=== PATIENT | male | born 1985 | race Caucasian/White ===

== ENCOUNTER → 2016-05-31 | Outpatient (REF) | payer OTHER ==
[~2016-05-31] MED LIST: /ESCI20TA; ABIL10TA; BUSP10TA PO; LEXA1TAB2 PO; PROP1TAB29 PO; RISP2TAB30 PO; RISP4TAB33 PO; ZYPR5TAB
== END ==
LOC: M LABDRAWP 15:33
PROVIDERS: ATTEND Psychiatry & Neurology Psychiatry
DX: Z79.899 Other long term (current) drug therapy (principal)

== ENCOUNTER → 2016-07-31 | Outpatient (REF) | payer OTHER | LOC: M LABDRAW1 15:27 | PROVIDERS: ATTEND Psychiatry & Neurology Psychiatry | DX: Z79.899 Other long term (current) drug therapy (principal) ==

== ENCOUNTER → 2016-10-17 | Outpatient (REF) | payer OTHER ==
[~2016-10-17] MED LIST changes: -RISP2TAB30 PO; +RISP2TAB32 PO
[2016-10-17 13:49] LABS: ALBUMIN 4.1 GM/DL (3.2-5.2); ALBUMIN/GLOBULIN RATIO 1.14 (1.00-1.93); ALKALINE PHOSPHATASE 76 U/L (45-117); ALT/SGPT 37 U/L (12-78); ANION GAP 8 MEQ/L (8-16); AST/SGOT 17 U/L (15-37); BILIRUBIN,TOTAL 0.5 MG/DL (0.2-1.0); BLOOD UREA NITROGEN 12 MG/DL (7-18); CARBON DIOXIDE LEVEL 28 MEQ/L (21-32); CHLORIDE LEVEL 104 MEQ/L (98-107); CHOLESTEROL LEVEL 165 MG/DL (<200); CREATININE FOR GFR 1.11 MG/DL (0.70-1.30); GLOMERULAR FILTRATION RATE > 60.0 (>60); GLUCOSE, FASTING 83 MG/DL (70-105); POTASSIUM SERUM 4.1 MEQ/L (3.5-5.1); SODIUM LEVEL 140 MEQ/L (136-145); TOTAL PROTEIN 7.7 GM/DL (6.4-8.2); TRIGLYCERIDES LEVEL 130 MG/DL (<150)
[2016-10-17 14:12] LABS: MEAN CORPUSCULAR HEMOGLOBIN 31.1 pg (27.0-33.0); MEAN CORPUSCULAR HGB CONC 35.6 g/dl (32.0-36.5); MEAN CORPUSCULAR VOLUME 87.4 fl (80.0-96.0); RED CELL DISTRIBUTION WIDTH 12.5 % (11.5-14.5); WHITE BLOOD COUNT 3.8 K/mm3 (4.0-10.0)
[2016-10-17 14:35] LABS: PROLACTIN 6.6 NG/ML (2.1-17.7)
[2016-10-17 15:31] LABS: BASOPHILS 2 % (0-4); EOSINOPHILS 4 % (0-5)
== END ==
LOC: M SFHCPLAZ 10:43
PROVIDERS: ATTEND Family Medicine
DX: D72.819 Decreased white blood cell count, unspecified (principal); E78.5 Hyperlipidemia, unspecified; R73.01 Impaired fasting glucose; E22.1 Hyperprolactinemia; E29.1 Testicular hypofunction

== ENCOUNTER 2017-01-17 16:47 | Inpatient (IN) | payer OTHER ==
[~2017-01-17] VITALS: Ht 190.5 cm; Wt 122.0 kg
[2017-01-17 17:40] LABS: MEAN CORPUSCULAR HEMOGLOBIN 29.3 pg (27.0-33.0); MEAN CORPUSCULAR HGB CONC 34.2 g/dl (32.0-36.5); MEAN CORPUSCULAR VOLUME 85.6 fl (80.0-96.0); PLATELET COUNT, AUTOMATED 253 10^3/uL (150-450); RED CELL DISTRIBUTION WIDTH 12.9 % (11.5-14.5); WHITE BLOOD COUNT 6.6 10^3/uL (4.0-10.0)
[2017-01-17 18:08] LABS: ALBUMIN 3.9 GM/DL (3.2-5.2); ALBUMIN/GLOBULIN RATIO 0.98 (1.00-1.93); ALKALINE PHOSPHATASE 82 U/L (45-117); ALT/SGPT 32 U/L (12-78); ANION GAP 6 MEQ/L (8-16); AST/SGOT 16 U/L (7-37); BILIRUBIN,DIRECT 0.1 MG/DL (0.0-0.2); BILIRUBIN,TOTAL 0.5 MG/DL (0.2-1.0); BLOOD UREA NITROGEN 10 MG/DL (7-18); CALCIUM LEVEL 8.9 MG/DL (8.5-10.1); CARBON DIOXIDE LEVEL 29 MEQ/L (21-32); CHLORIDE LEVEL 104 MEQ/L (98-107); CREATININE FOR GFR 1.01 MG/DL (0.70-1.30); GLOMERULAR FILTRATION RATE > 60.0 (>60); GLUCOSE, FASTING 92 MG/DL (70-105); SODIUM LEVEL 139 MEQ/L (136-145); TOTAL PROTEIN 7.9 GM/DL (6.4-8.2)
[2017-01-17] MEDS: LURASIDONE 20 MG TAB (LATUDA) PO SCH (21:00)
[2017-01-17] MEDS: busPIRone 10 MG TAB PO SCH (21:00)
[2017-01-17] MEDS: ESCITALOPRAM OXALATE 10 MG TAB (LEXAPRO) PO SCH (21:00)
[2017-01-17] MEDS ORDERED: LEXA1TAB2 PO (21:17)
[2017-01-17] MEDS ORDERED: TRAZ50TA11 PO (21:17)
[2017-01-17] MEDS ORDERED: LORA0.5T11 PO (21:17)
[2017-01-17] MEDS ORDERED: BUSP10TA PO (21:17)
[2017-01-17] MEDS ORDERED: PROP40TA PO (21:17)
[2017-01-17] MEDS ORDERED: LATU1TAB PO (21:17)
[2017-01-17 22:23] LABS: METHADONE URINE NEGATIVE (NEGATIVE)
[2017-01-17] MEDS ORDERED: MAALOX 30 ML SUSP *UDC PO PRN (23:00)
[2017-01-17] MEDS ORDERED: MOM 30ML SUSPENSION UDC PO PRN (23:00)
[2017-01-17] MEDS ORDERED: LORazepam 0.5 MG TAB PO PRN (23:00)
[2017-01-18 00:46] VITALS: BP 132/80
[2017-01-18] MEDS: LURASIDONE 20 MG TAB (LATUDA) PO SCH ×2 (01:06→20:38)
[2017-01-18] MEDS: busPIRone 10 MG TAB PO SCH ×4 (01:06→21:00)
[2017-01-18] MEDS: traZODone 50 MG TAB PO PRN ×2 (01:07→21:46)
[2017-01-18] MEDS: ESCITALOPRAM OXALATE 10 MG TAB (LEXAPRO) PO SCH ×2 (01:07→21:00)
[2017-01-18] MEDS: PROPRANOLOL 20 MG TAB PO PRN ×2 (01:40→21:49)
[2017-01-18 07:28] VITALS: BP 120/72
--- NOTE | 2017-01-18 10:29 | MHHPEPDOC ---
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 This is a patient of Dr. Villalta, who put in a request for pickling solution maker letter. Patient brought in by [facility] , accompanied by father. Patient has been irritable, engaging in high risk activities, and slightly more energized. At home has been getting into arguments with his parents, has been going out alone and driving aggressively, which is a behavior he engages in when manic. Patient acknowledges that he is acting strangely, states that he has skipped a few doses of his latuda, unable to provide a clear reason why. Patient states that he is OK with going back on the medication. Denies difficulty sleeping, SI intent and plan, depression, AVH. States in the past he has had AH of whispers, but had not has AH in the last several months. Believes the AH is triggered by stress. Denies history of delusions, VH. Patient states the Latuda has adequately contained his manic symptoms, denies any side effects. He believes the no longer needs to be on the lexapro and requests to discontinue the medication. Patient is OK with continuing the propranolol 40 mg qhs (for anxiety), ativan 0.5 mg PRN (which he takes only a few times a week), buspar 10 mg TID. 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 MENTAL STATUS EXAMINATION: General appearance: well groomed Behavior: calm, cooperative, related Speech: normal RRVT Thought processes: linear Thought content: appropriate to conversation Judgment: fair Insight: fair Orientation: AAOX3 Mood: "OK" Affect: euthymic, full range DIAGNOSES: 1. bipolar d/o w/ psychotic features (r/o schizoaffective) ASSESSMENT: Patient is calm and reasonable on the unit, with good sleep last night. Given his description of his behaviors at home, it is likely that he is hypomanic, due to skipping several nights of latuda. Will not discontinue lexapro as patient requests, will compromise with his request by reducing the dose. PROBLEM LIST: 1. manic behaviors INITIAL TREATMENT PLAN: 1. Patient was admitted on a . 2. Complete history was obtained. 3. With patients permission, family will be contacted and database will be expanded. 4. Patients medication regimen will be reviewed and changed accordingly. 5. Patient will be provided with protected environment. 6. Patient will be treated with individual, group, and milieu therapies. 7. Patient will receive supportive psych-education. 8. Discharge planning will commence immediately. 9. Outpatient follow-up treatment will be strongly recommended. - Continue home latuda 60 mg with 40 mg now since pt did not take his last night 's dose. - Continue home buspar 10 mg TID, ativan 0.5 mg BID PRN, and propranolol 40 mg qhs - Reduced home lexapro to 20 mg daily for mood, patient can discuss with Dr. Villalta (outpt provider) if he wants to make further changes - PRNs: MOM, mylanta, tylenol, trazodone ESTIMATED LENGTH OF STAY: 4 DAYS. TIME SPENT COUNSELING AND COORDINATING INITIAL CARE: 20 minutes. Vital Signs Vital Signs Date Time Temp Pulse Resp B/P (MAP) Pulse Ox O2 Delivery O2 Flow Rate FiO2 01/18/17 07:28 98.0 79 16 120/72 (88) 01/18/17 00:15 97 Room Air Laboratory Data 24H Labs Laboratory Tests 2 01/17/17 17:27: Nucleated Red Blood Cells % (auto) 0.0, Anion Gap 6L, Glomerular Filtration Rate > 60.0, Calcium Level 8.9, Aspartate Amino Transf (AST/SGOT) 16, Alanine Aminotransferase (ALT/SGPT) 32, Alkaline Phosphatase 82, Total Bilirubin 0.5, Direct Bilirubin 0.1, Total Protein 7.9, Albumin 3.9, Albumin/Globulin Ratio 0.98L, Thyroid Stimulating Hormone (TSH) 3.600, Salicylates Level 1.9L, Acetaminophen Level < 2.0L, Ethyl Alcohol Level < 0.003 01/17/17 20:16: Urine Amphetamines Screen NEGATIVE, Urine Benzodiazepines Screen NEGATIVE, Urine Opiates Screen NEGATIVE, Urine Methadone Screen NEGATIVE, Urine Barbiturates Screen NEGATIVE, Urine Phencyclidine Screen NEGATIVE, Urine Cocaine Metabolite Screen NEGATIVE, Urine Cannabinoids Screen NEGATIVE CBC/BMP Laboratory Tests 01/17/17 17:27 Red Blood Count 5.29, Mean Corpuscular Volume 85.6, Mean Corpuscular Hemoglobin 29.3, Mean Corpuscular Hemoglobin Concent 34.2, Red Cell Distribution Width 12.9 Medications Scheduled Buspirone HCl (Buspirone HCl) 10 Mg Tab, 10 MG PO TID, (Reported) Escitalopram Oxalate (Lexapro) 20 Mg Tab, 40 MG PO QHS, (Reported) Lurasidone Hydrochloride (Latuda) 60 Mg Tab, 60 MG PO QHS, (Reported) Scheduled PRN Lorazepam (Lorazepam) 0.5 Mg Tab, 0.5 MG PO BID PRN for ANXIETY, (Reported) TOOK 1 MG LAST NIGHT, NOT A COMMON OCCURENCE PER PATIENT Propranolol HCl (Propranolol HCl) 40 Mg Tab, 40 MG PO QHS PRN for ANXIETY, ( Reported) Trazodone HCl (Trazodone HCl) 50 Mg Tab, 50 MG PO QHS PRN for SLEEP, (Reported) Allergies Coded Allergies: No Known Drug Allergy (Unverified Allergy, Unknown, 05/20/12) MARYANN DRAKE MD Jan 18, 2017 10:29
[2017-01-18] MEDS ORDERED: LURASIDONE HCL 40 MG TAB (LATUDA) PO ONE (10:30)
[2017-01-18 18:00] VITALS: BP 147/83
[2017-01-18 21:49] VITALS: BP 139/89
[2017-01-19 06:34] VITALS: BP 152/60
[2017-01-19] MEDS: busPIRone 10 MG TAB PO SCH ×3 (08:37→21:27)
[2017-01-19] MEDS ORDERED: LURASIDONE 20 MG TAB (LATUDA) PO ONE (09:30)
--- NOTE | 2017-01-19 10:38 | MHIPNPDOC ---
[facility] Progress Note Progress Note DATE OF SERVICE: 01/19/17 HISTORY: Patient states he wishes to go down on his latuda dose, states that he hopes his diagnosis is bipolar rather than schizoaffective. Patient was afraid of the side effects of antipsychotics. Discussed with the patient lamictal's usage and side effects. Patient refuses to take both lamictal and latuda at the same time, patient refuses monthly injectable antipsychotic. Patient states he will get a second opinion on his diagnosis once he is outside the hospital and was unable to definitely say that he will continue his latuda outpatient. Patient denies AVH and SI intent and plan on the unit, mood is OK. Patient's father was here last night, states that the patient is off of his baseline, the patient was irritable and odd. Spoke with Dr. Villalta his outpt provider: the patient has been floridly psychotic in the past, exhibiting symptoms such as thought blocking, disorganized speech, hearing AH of whispers. Dr. Villalta believes the diagnosis is schizoaffective. VITAL SIGNS: See below. NEW TEST RESULTS: NA CURRENT MEDICATIONS: See below. MENTAL STATUS EXAMINATION: General appearance: well groomed Behavior: calm, superficially cooperative but became guarded later, related but odd Speech: normal RRVT Thought processes: linear Thought content: appropriate to conversation Judgment: poor Insight: poor Orientation: AAOX3 Mood: "OK" Affect: euthymic, full range DIAGNOSES: 1. bipolar d/o w/ psychotic features vs schizoaffective ASSESSMENT: Patient is calm and appears to be related and reasonable, but upon further discussion his oddness and irrational judgment become manifest. Given his father's statements, the patient needs to be further evaluated and treated to reach his baseline. Patient needs to be accepting of his diagnosis in order to increase outpatient medication compliance. PROBLEM LIST: 1. manic/psychotic behaviors - Continue home latuda 60 mg qhs for mood and psychosis - Continue home buspar 10 mg TID, ativan 0.5 mg BID PRN, and propranolol 40 mg qhs - Reduced home lexapro to 20 mg daily for mood - PRNs: MOM, mylanta, tylenol, trazodone ESTIMATED LENGTH OF STAY: 5 DAYS. TIME SPENT COUNSELING AND COORDINATING INITIAL CARE: 20 minutes. Vital Signs Vital Signs Date Time Temp Pulse Resp B/P (MAP) Pulse Ox O2 Delivery O2 Flow Rate FiO2 01/19/17 06:34 98.0 63 18 152/60 (90) 01/18/17 00:15 97 Room Air Current Medications Current Medications Acetaminophen (Tylenol Tab) 650 mg Q6HP PRN PO HEADACHE or DISCOMFORT; Start 01/17/17 at 23:00; Stop 02/16/17 at 22:59 Al Hydrox/Mg Hydrox/Simethicone (Mylanta) 30 ml Q4HP PRN PO HEARTBURN/ INDIGESTION; Start 01/17/17 at 23:00; Stop 02/16/17 at 22:59 Buspirone HCl (Buspar) 10 mg TID PO Last administered on 01/19/17 08:37; Start 01/17/17 at 21:00; Stop 02/16/17 at 20:59 Escitalopram Oxalate (Lexapro) 20 mg QHS PO ; Start 01/18/17 at 21:00; Stop 02/17 at 20:59 Escitalopram Oxalate (Lexapro) 40 mg QHS PO ; Start 01/17/17 at 21:00; Stop 01/18/17 at 10:14; Status DC Home Med (Med Rec Complete!) ASDIRECTED XX ; Start 01/17/17 at 21:30; Stop 01/17/17 at 21:30; Status DC Lorazepam (Ativan) 0.5 mg BID PRN PO ANXIETY; Start 01/17/17 at 23:00; Stop at 22:59 Lurasidone HCl (Latuda) 60 mg QHS PO ; Start 01/17/17 at 21:00; Stop 01/19/17 at 09:34; Status DC Lurasidone HCl (Latuda) 60 mg QHS PO ; Start 01/20/17 at 21:00; Stop 02/19/17 at 20:59 Magnesium Hydroxide (Milk Of Magnesia) 30 ml DAILYPRN PRN PO CONSTIPATION; Start 01/17/17 at 23:00; Stop 02/16/17 at 22:59 Propranolol HCl (Inderal) 40 mg QHS PRN PO ANXIETY Last administered on 21:49; Start 01/17/17 at 23:00; Stop 02/16/17 at 22:59 Trazodone HCl (Desyrel) 50 mg QHSP PRN PO INSOMNIA Last administered on t 21:46; Start 01/17/17 at 23:00; Stop 02/16/17 at 22:59 Allergies Coded Allergies: No Known Drug Allergy (Unverified Allergy, Unknown, 05/20/12) MARYANN DRAKE MD Jan 19, 2017 10:38
[2017-01-19 13:45] VITALS: BP 122/78
[2017-01-19 18:00] VITALS: BP 163/76
[2017-01-19] MEDS ORDERED: LURASIDONE HCL 40 MG TAB (LATUDA) PO ONE (21:00)
[2017-01-19] MEDS: lamoTRIgine 25 MG TAB PO SCH (21:26)
[2017-01-19] MEDS: ESCITALOPRAM OXALATE 10 MG TAB (LEXAPRO) PO SCH (21:27)
[2017-01-20 06:36] VITALS: BP 125/67
[2017-01-20] MEDS: busPIRone 10 MG TAB PO SCH ×3 (08:14→21:00)
--- NOTE | 2017-01-20 09:46 | MHIPNPDOC ---
[facility] Progress Note Progress Note DATE OF SERVICE: 01/20/17 HISTORY: Patient has been compliant with medications but he states that he does not wish to take so many. He asks which ones he has to take, and states he wishes to stop the lexapro. After some counseling about withdrawal effects, patient agreed to continue the lexapro. Patient denies side effects. Patient states that he does not know if he has insurance and states that he will not take the latuda because it is expensive. Patient did not endorse depression, SI intent and plan. Reports good sleep. VITAL SIGNS: See below. NEW TEST RESULTS: NA CURRENT MEDICATIONS: See below. MENTAL STATUS EXAMINATION: General appearance: well groomed Behavior: calm, superficially cooperative, guarded, related but odd, impatient Speech: normal RRVT but sunita Thought processes: linear Thought content: appropriate to conversation Judgment: poor Insight: poor Orientation: AAOX3 Mood: "OK" Affect: euthymic, full range DIAGNOSES: 1. bipolar d/o w/ psychotic features vs schizoaffective ASSESSMENT: Patient is resistant to acknowledging his diagnosis and seems to be unmotivated to continue his medications, but still takes them because he has to while inpatient. Patient seems to be coming up with reasons on why he should not take Latuda, rather than coming up with reasons why he should or could (eg. get on a new insurance plan after discharge). Will continue to treat annia, and see if patient is more reasonable after several days. PROBLEM LIST: 1. manic/psychotic behaviors - Continue home latuda 60 mg qhs for mood and psychosis - Continue home buspar 10 mg TID, ativan 0.5 mg BID PRN, and propranolol 40 mg qhs - Reduced home lexapro to 20 mg daily for mood - PRNs: MOM, mylanta, tylenol, trazodone ESTIMATED LENGTH OF STAY: 5 DAYS. TIME SPENT COUNSELING AND COORDINATING INITIAL CARE: 20 minutes. Vital Signs Vital Signs Date Time Temp Pulse Resp B/P (MAP) Pulse Ox O2 Delivery O2 Flow Rate FiO2 01/20/17 06:36 97.7 75 16 125/67 (86) 01/18/17 00:15 97 Room Air Current Medications Current Medications Acetaminophen (Tylenol Tab) 650 mg Q6HP PRN PO HEADACHE or DISCOMFORT; Start 01/17/17 at 23:00; Stop 02/16/17 at 22:59 Al Hydrox/Mg Hydrox/Simethicone (Mylanta) 30 ml Q4HP PRN PO HEARTBURN/ INDIGESTION; Start 01/17/17 at 23:00; Stop 02/16/17 at 22:59 Buspirone HCl (Buspar) 10 mg TID PO Last administered on 01/20/17 08:14; Start 01/17/17 at 21:00; Stop 02/16/17 at 20:59 Escitalopram Oxalate (Lexapro) 20 mg QHS PO Last administered on 01/19/17 21: 27; Start 01/18/17 at 21:00; Stop 02/17/17 at 20:59 Escitalopram Oxalate (Lexapro) 40 mg QHS PO ; Start 01/17/17 at 21:00; Stop 01/18/17 at 10:14; Status DC Home Med (Med Rec Complete!) ASDIRECTED XX ; Start 01/17/17 at 21:30; Stop 01/17/17 at 21:30; Status DC Lamotrigine (LaMICtal) 25 mg QHS PO Last administered on 01/19/17 21:26; Start 01/19/17 at 21:00; Stop 02/18/17 at 20:59 Lorazepam (Ativan) 0.5 mg BID PRN PO ANXIETY; Start 01/17/17 at 23:00; Stop at 22:59 Lurasidone HCl (Latuda) 60 mg QHS PO ; Start 01/17/17 at 21:00; Stop 01/19/17 at 09:34; Status DC Lurasidone HCl (Latuda) 60 mg QHS PO ; Start 01/20/17 at 21:00; Stop 02/19/17 at 20:59 Magnesium Hydroxide (Milk Of Magnesia) 30 ml DAILYPRN PRN PO CONSTIPATION; Start 01/17/17 at 23:00; Stop 02/16/17 at 22:59 Propranolol HCl (Inderal) 40 mg QHS PRN PO ANXIETY Last administered on 21:49; Start 01/17/17 at 23:00; Stop 02/16/17 at 22:59 Trazodone HCl (Desyrel) 50 mg QHSP PRN PO INSOMNIA Last administered on 21:46; Start 01/17/17 at 23:00; Stop 02/16/17 at 22:59 Allergies Coded Allergies: No Known Drug Allergy (Unverified Allergy, Unknown, 05/20/12) MARYANN DRAKE MD Jan 20, 2017 09:46
[2017-01-20 18:00] VITALS: BP 155/92
[2017-01-20] MEDS: lamoTRIgine 25 MG TAB PO SCH (21:00)
[2017-01-20] MEDS: ESCITALOPRAM OXALATE 10 MG TAB (LEXAPRO) PO SCH (21:00)
[2017-01-20] MEDS: LURASIDONE 20 MG TAB (LATUDA) PO SCH (21:00)
[2017-01-21 06:44] VITALS: BP 120/80
[2017-01-21] MEDS: busPIRone 10 MG TAB PO SCH ×3 (08:05→21:00)
--- NOTE | 2017-01-21 10:27 | MHIPNPDOC ---
[facility] Progress Note Progress Note DATE OF SERVICE: 01/21/17 HISTORY: Patient refused his meds last night, gave ambiguous reasons about why he refused. Patient was counseled on compliance. Patient agreed to be more cooperative. VITAL SIGNS: See below. NEW TEST RESULTS: NA CURRENT MEDICATIONS: See below. MENTAL STATUS EXAMINATION: Behavior: guarded, superficially cooperative, good eye contact Speech: normal RRVT Thought processes including: linear Thought content: appropriate to conversation Judgment: poor Insight: poor Orientation: AAOX3 Mood: "exhausted" Affect: anxious DIAGNOSES: 1. bipolar d/o w/ psychotic features vs schizoaffective ASSESSMENT: Patient is resistant to acknowledging his diagnosis and seems to be unmotivated to continue his medications. Patient seems to be coming up with reasons on why he should not take the medications. Patient very particular about his diagnosis. Will continue to treat annia, and see if patient is more reasonable after several days. PROBLEM LIST: 1. manic/psychotic behaviors - Continue home latuda 60 mg qhs for mood and psychosis - Continue lamictal 25 mg daily for mood stabilization - Continue home buspar 10 mg TID, ativan 0.5 mg BID PRN, and propranolol 40 mg qhs - Reduced home lexapro to 20 mg daily for mood - PRNs: MOM, mylanta, tylenol, trazodone ESTIMATED LENGTH OF STAY: 5 DAYS. TIME SPENT COUNSELING AND COORDINATING INITIAL CARE: 20 minutes. Vital Signs Vital Signs Date Time Temp Pulse Resp B/P (MAP) Pulse Ox O2 Delivery O2 Flow Rate FiO2 01/21/17 06:44 97.5 84 14 120/80 (93) 01/18/17 00:15 97 Room Air Current Medications Current Medications Acetaminophen (Tylenol Tab) 650 mg Q6HP PRN PO HEADACHE or DISCOMFORT; Start 01/17/17 at 23:00; Stop 02/16/17 at 22:59 Al Hydrox/Mg Hydrox/Simethicone (Mylanta) 30 ml Q4HP PRN PO HEARTBURN/ INDIGESTION; Start 01/17/17 at 23:00; Stop 02/16/17 at 22:59 Buspirone HCl (Buspar) 10 mg TID PO Last administered on 01/21/17t 08:05; Start 01/17/17 at 21:00; Stop 02/16/17 at 20:59 Escitalopram Oxalate (Lexapro) 20 mg QHS PO Last administered on 01/19/17 21: 27; Start 01/18/17 at 21:00; Stop 02/17/17 at 20:59 Escitalopram Oxalate (Lexapro) 40 mg QHS PO ; Start 01/17/17 at 21:00; Stop 01/18/17 at 10:14; Status DC Home Med (Med Rec Complete!) ASDIRECTED XX ; Start 01/17/17 at 21:30; Stop 01/17/17 at 21:30; Status DC Lamotrigine (LaMICtal) 25 mg QHS PO Last administered on 01/19/17 21:26; Start 01/19/17 at 21:00; Stop 02/18/17 at 20:59 Lorazepam (Ativan) 0.5 mg BID PRN PO ANXIETY; Start 01/17/17 at 23:00; Stop at 22:59 Lurasidone HCl (Latuda) 60 mg QHS PO ; Start 01/17/17 at 21:00; Stop 01/19/17 at 09:34; Status DC Lurasidone HCl (Latuda) 60 mg QHS PO ; Start 01/20/17 at 21:00; Stop 02/19/17 at 20:59 Magnesium Hydroxide (Milk Of Magnesia) 30 ml DAILYPRN PRN PO CONSTIPATION; Start 01/17/17 at 23:00; Stop 02/16/17 at 22:59 Propranolol HCl (Inderal) 40 mg QHS PRN PO ANXIETY Last administered on 21:49; Start 01/17/17 at 23:00; Stop 02/16/17 at 22:59 Trazodone HCl (Desyrel) 50 mg QHSP PRN PO INSOMNIA Last administered on 21:46; Start 01/17/17 at 23:00; Stop 02/16/17 at 22:59 Allergies Coded Allergies: No Known Drug Allergy (Unverified Allergy, Unknown, 05/20/12) MARYANN DRAKE MD Jan 21, 2017 10:27
--- NOTE | 2017-01-21 11:24 | HPE ---
DATE OF ADMISSION: 01/17/2017 Please refer to psychiatric history and evaluation for further details on this admission. This examination and history is intended for medical issues, which may need treatment, followup, or consult on this 31-year-old male. PRIMARY CARE PROVIDER: Vick Clarke MD ALLERGIES: No known drug allergies. SOCIAL HISTORY: He lives in [place], and he is single. He takes 2-3 beers per day. He does not use recreational drugs. FAMILY HISTORY: Mother alive, age 64, Crohn disease and depression. Father alive, age 64. Two brothers alive with inflammatory bowel disease (IBD). PAST MEDICAL HISTORY: Schizoaffective disorder, tremor, seasonal allergies. PAST SURGICAL HISTORY: Right breast mass removed. HOME MEDICATIONS: - trazodone 50 mg by mouth nightly as needed for sleep - BuSpar 10 mg by mouth three times a day - Lexapro 40 mg by mouth nightly - lorazepam 0.5 mg by mouth twice a day as needed for anxiety - Latuda 60 mg by mouth nightly - propranolol 40 mg by mouth nightly as needed for anxiety Ten systems review was done and was unremarkable. PHYSICAL EXAMINATION: A 31-year-old cooperative male, in no acute distress. Height 75 inches, weight 116 kg, body mass index (BMI) is 32. The patient is alert and oriented times three. Pupils are equal and react to light. Extraocular movements intact. Cornea and sclerae clear. Conjunctivae normal. No facial asymmetry. Pharynx, tongue, gums pink and moist. Tongue is midline. NECK: Is supple without lymphadenopathy. No thyromegaly. No goiter. Carotids 2+ without bruit. CHEST: Clear to auscultation without wheeze or retraction. HEART: Is regular. ABDOMEN: Benign. Bowel sounds positive. GENITOURINARY ()/RECTAL: Not done. EXTREMITIES: Show equal strength, full range of motion. No cyanosis, clubbing, or edema. Peripheral pulses equal and palpable bilaterally. SKIN: Is warm and dry. IMPRESSION AND PLAN: 1. Psychiatric plan per psychiatry. 2. No acute medical issues.
[2017-01-21 18:00] VITALS: BP 136/92
[2017-01-21] MEDS: LURASIDONE 20 MG TAB (LATUDA) PO SCH (21:00)
[2017-01-21] MEDS: lamoTRIgine 25 MG TAB PO SCH (21:00)
[2017-01-21] MEDS: ESCITALOPRAM OXALATE 10 MG TAB (LEXAPRO) PO SCH (21:00)
[2017-01-22 06:00] VITALS: BP 140/80
[2017-01-22] MEDS: busPIRone 10 MG TAB PO SCH ×4 (10:12→21:00)
--- NOTE | 2017-01-22 12:37 | MHIPNPDOC ---
[facility] Progress Note Progress Note DATE OF SERVICE: 01/22/17 HISTORY: Pt refused medications again. Patient does not give clear reason why he is doing so. Patient keeps expressing that he does not wish to see Dr. Villalta as an outpatient provider despite this provider's suggestions. Patient adamantly wishes to say that he has bipolar type I rather than schizoaffective. VITAL SIGNS: See below. NEW TEST RESULTS: NA CURRENT MEDICATIONS: See below. MENTAL STATUS EXAMINATION: Behavior:guarded, evasive Speech: normal RRVT Thought processes including: linear Thought content: appropriate to conversation Judgment: poor Insight: fair Orientation: AAOx3 Mood: OK Affect: anxious DIAGNOSES: 1. bipolar disorder w psychotic features vs schizoaffective ASSESSMENT: Patient likely is being manipulative, not taking his medications on purpose, trying to use leverage to get this provider to diagnose him with bipolar rather than schizoaffective, and trying to be set up with a different outpatient provider besides Dr. Villalta. Explained to this patient that it is unclear whether he has bipolar or schizoaffective based on his inpatient presentation, but he should be more concerned about getting better rather than the official dx. Plan: - Continue home latuda 60 mg qhs for mood and psychosis - Continue lamictal 25 mg daily for mood stabilization - Continue home buspar 10 mg TID, ativan 0.5 mg BID PRN, and propranolol 40 mg qhs - Reduced home lexapro to 20 mg daily for mood - PRNs: MOM, mylanta, tylenol, trazodone ESTIMATED LENGTH OF STAY: 5 DAYS. TIME SPENT COUNSELING AND COORDINATING INITIAL CARE: 20 minutes. Vital Signs Vital Signs Date Time Temp Pulse Resp B/P (MAP) Pulse Ox O2 Delivery O2 Flow Rate FiO2 01/22/17 06:00 97.1 82 14 140/80 (100) 01/18/17 00:15 97 Room Air Current Medications Current Medications Acetaminophen (Tylenol Tab) 650 mg Q6HP PRN PO HEADACHE or DISCOMFORT; Start 01/17/17 at 23:00; Stop 02/16/17 at 22:59 Al Hydrox/Mg Hydrox/Simethicone (Mylanta) 30 ml Q4HP PRN PO HEARTBURN/ INDIGESTION; Start 01/17/17 at 23:00; Stop 02/16/17 at 22:59 Buspirone HCl (Buspar) 10 mg TID PO Last administered on 01/21/17 08:05; Start 01/17/17 at 21:00; Stop 02/16/17 at 20:59 Escitalopram Oxalate (Lexapro) 20 mg QHS PO Last administered on 01/19/17 21: 27; Start 01/18/17 at 21:00; Stop 02/17/17 at 20:59 Escitalopram Oxalate (Lexapro) 40 mg QHS PO ; Start 01/17/17 at 21:00; Stop 01/18/17 at 10:14; Status DC Home Med (Med Rec Complete!) ASDIRECTED XX ; Start 01/17/17 at 21:30; Stop 01/17/17 at 21:30; Status DC Lamotrigine (LaMICtal) 25 mg QHS PO Last administered on 01/19/17 21:26; Start 01/19/17 at 21:00; Stop 02/18/17 at 20:59 Lorazepam (Ativan) 0.5 mg BID PRN PO ANXIETY; Start 01/17/17 at 23:00; Stop at 22:59 Lurasidone HCl (Latuda) 60 mg QHS PO ; Start 01/17/17 at 21:00; Stop 01/19/17 at 09:34; Status DC Lurasidone HCl (Latuda) 60 mg QHS PO ; Start 01/20/17 at 21:00; Stop 02/19/17 at 20:59 Magnesium Hydroxide (Milk Of Magnesia) 30 ml DAILYPRN PRN PO CONSTIPATION; Start 01/17/17 at 23:00; Stop 02/16/17 at 22:59 Propranolol HCl (Inderal) 40 mg QHS PRN PO ANXIETY Last administered on 21:49; Start 01/17/17 at 23:00; Stop 02/16/17 at 22:59 Trazodone HCl (Desyrel) 50 mg QHSP PRN PO INSOMNIA Last administered on 21:46; Start 01/17/17 at 23:00; Stop 02/16/17 at 22:59 Allergies Coded Allergies: No Known Drug Allergy (Unverified Allergy, Unknown, 05/20/12) MARYANN DRAKE MD Jan 22, 2017 12:37
[2017-01-22 18:00] VITALS: BP 130/71
[2017-01-22] MEDS: LURASIDONE 20 MG TAB (LATUDA) PO SCH (20:06)
[2017-01-22] MEDS: lamoTRIgine 25 MG TAB PO SCH (20:06)
[2017-01-22] MEDS: ESCITALOPRAM OXALATE 10 MG TAB (LEXAPRO) PO SCH (21:00)
[2017-01-22] MEDS: traZODone 50 MG TAB PO PRN (22:32)
[2017-01-23 06:55] VITALS: BP 135/74
[2017-01-23] MEDS: busPIRone 10 MG TAB PO SCH (09:00)
--- NOTE | 2017-01-23 10:18 | MHIPNPDOC ---
[facility] Progress Note Progress Note DATE OF SERVICE: 01/23/17 HISTORY: Patient took the latuda and lamictal last night. Patient refused all of the other medications. Patient reports good sleep, OK mood, denies SI intent and plan. Staff states that the pt is suinta with them, dismissive. VITAL SIGNS: See below. NEW TEST RESULTS: NA CURRENT MEDICATIONS: See below. MENTAL STATUS EXAMINATION: Behavior:guarded Speech: normal RRVT Thought processes including: linear Thought content: appropriate to conversation Judgment: poor Insight: fair Orientation: AAOx3 Mood: OK Affect: anxious DIAGNOSES: 1. bipolar disorder w psychotic features vs schizoaffective ASSESSMENT: Patient likely is being manipulative, not taking his medications on purpose, trying to use leverage to get this provider to diagnose him with bipolar rather than schizoaffective, and trying to be set up with a different outpatient provider besides Dr. Villalta. Explained to this patient that it is unclear whether he has bipolar or schizoaffective based on his inpatient presentation, but he should be more concerned about getting better rather than the official dx. Plan: - Continue home latuda 60 mg qhs for mood and psychosis - Continue lamictal 25 mg daily for mood stabilization - Discontinue home buspar 10 mg TID, ativan 0.5 mg BID PRN, and propranolol 40 mg qhs, lexapro - PRNs: MOM, mylanta, tylenol, trazodone ESTIMATED LENGTH OF STAY: 5 DAYS. TIME SPENT COUNSELING AND COORDINATING INITIAL CARE: 20 minutes. Vital Signs Vital Signs Date Time Temp Pulse Resp B/P (MAP) Pulse Ox O2 Delivery O2 Flow Rate FiO2 01/23/17 06:55 98.0 99 18 135/74 (94) Room Air 01/18/17 00:15 97 Current Medications Current Medications Acetaminophen (Tylenol Tab) 650 mg Q6HP PRN PO HEADACHE or DISCOMFORT; Start 01/17/17 at 23:00; Stop 02/16/17 at 22:59 Al Hydrox/Mg Hydrox/Simethicone (Mylanta) 30 ml Q4HP PRN PO HEARTBURN/ INDIGESTION; Start 01/17/17 at 23:00; Stop 02/16/17 at 22:59 Buspirone HCl (Buspar) 10 mg TID PO Last administered on 01/22/17t 16:03; Start 01/17/17 at 21:00; Stop 02/16/17 at 20:59 Escitalopram Oxalate (Lexapro) 20 mg QHS PO Last administered on 01/19/17 21: 27; Start 01/18/17 at 21:00; Stop 02/17/17 at 20:59 Escitalopram Oxalate (Lexapro) 40 mg QHS PO ; Start 01/17/17 at 21:00; Stop 01/18/17 at 10:14; Status DC Home Med (Med Rec Complete!) ASDIRECTED XX ; Start 01/17/17 at 21:30; Stop 01/17/17 at 21:30; Status DC Lamotrigine (LaMICtal) 25 mg QHS PO Last administered on 01/22/17 20:06; Start 01/19/17 at 21:00; Stop 02/18/17 at 20:59 Lorazepam (Ativan) 0.5 mg BID PRN PO ANXIETY; Start 01/17/17 at 23:00; Stop at 22:59 Lurasidone HCl (Latuda) 60 mg QHS PO ; Start 01/17/17 at 21:00; Stop 01/19/17 at 09:34; Status DC Lurasidone HCl (Latuda) 60 mg QHS PO Last administered on 01/22/17 20:06; Start 01/20/17 at 21:00; Stop 02/19/17 at 20:59 Magnesium Hydroxide (Milk Of Magnesia) 30 ml DAILYPRN PRN PO CONSTIPATION; Start 01/17/17 at 23:00; Stop 02/16/17 at 22:59 Propranolol HCl (Inderal) 40 mg QHS PRN PO ANXIETY Last administered on 21:49; Start 01/17/17 at 23:00; Stop 02/16/17 at 22:59 Trazodone HCl (Desyrel) 50 mg QHSP PRN PO INSOMNIA Last administered on 22:32; Start 01/17/17 at 23:00; Stop 02/16/17 at 22:59 Allergies Coded Allergies: No Known Drug Allergy (Unverified Allergy, Unknown, 05/20/12) MARYANN DRAKE MD Jan 23, 2017 10:18
[2017-01-23 18:05] VITALS: BP 153/89
[2017-01-23] MEDS: LURASIDONE 20 MG TAB (LATUDA) PO SCH (20:20)
[2017-01-23] MEDS: lamoTRIgine 25 MG TAB PO SCH (20:20)
[2017-01-23] MEDS: ACETAMINOPHEN TAB 650MG DOSE (2X325MG) PO PRN (20:20)
[2017-01-23] MEDS: traZODone 50 MG TAB PO PRN (22:07)
[2017-01-24 06:35] VITALS: BP 138/87
--- NOTE | 2017-01-24 09:54 | MHIPNPDOC ---
[facility] Progress Note Progress Note DATE OF SERVICE: 01/24/17 HISTORY: Patient took the latuda and lamictal last night. Patient states his sleep was good. Patient has been behaving more oddly, pacing around unit with earplugs. Today told this provider that he is being given uranium here which is making him sick. Patient still says he does not wish to see Dr. Villalta when he leaves the hospital. Did not endorse SI intent or plan. VITAL SIGNS: See below. NEW TEST RESULTS: NA CURRENT MEDICATIONS: See below. MENTAL STATUS EXAMINATION: Behavior:guarded Speech: normal RRVT Thought processes including: linear Thought content: appropriate to conversation Judgment: poor Insight: fair Orientation: AAOx3 Mood: OK Affect: anxious DIAGNOSES: 1. bipolar disorder w psychotic features vs schizoaffective ASSESSMENT: Patient seems to be exhibiting some hypomanic and/or psychotic thoughts. Patient is still preoccupied with leaving the hospital and on not being labeled with schizoaffective. Plan: - Continue home latuda 60 mg qhs for mood and psychosis - Continue lamictal 25 mg daily for mood stabilization - Discontinue home buspar 10 mg TID, ativan 0.5 mg BID PRN, and propranolol 40 mg qhs, lexapro - PRNs: MOM, mylanta, tylenol, trazodone ESTIMATED LENGTH OF STAY: 7+ DAYS. TIME SPENT COUNSELING AND COORDINATING INITIAL CARE: 20 minutes. Vital Signs Vital Signs Date Time Temp Pulse Resp B/P (MAP) Pulse Ox O2 Delivery O2 Flow Rate FiO2 01/24/17 06:35 98.9 94 18 138/87 (104) Room Air 01/18/17 00:15 97 Current Medications Current Medications Acetaminophen (Tylenol Tab) 650 mg Q6HP PRN PO HEADACHE or DISCOMFORT Last administered on 01/23/17 20:20; Start 01/17/17 at 23:00; Stop 02/16/17 at 22:59 Al Hydrox/Mg Hydrox/Simethicone (Mylanta) 30 ml Q4HP PRN PO HEARTBURN/ INDIGESTION; Start 01/17/17 at 23:00; Stop 02/16/17 at 22:59 Buspirone HCl (Buspar) 10 mg TID PO Last administered on 01/22/17 16:03; Start 01/17/17 at 21:00; Stop 01/23/17 at 10:19; Status DC Escitalopram Oxalate (Lexapro) 20 mg QHS PO Last administered on 01/19/17 21: 27; Start 01/18/17 at 21:00; Stop 01/23/17 at 10:19; Status DC Escitalopram Oxalate (Lexapro) 40 mg QHS PO ; Start 01/17/17 at 21:00; Stop 01/18/17 at 10:14; Status DC Home Med (Med Rec Complete!) ASDIRECTED XX ; Start 01/17/17 at 21:30; Stop 01/17/17 at 21:30; Status DC Lamotrigine (LaMICtal) 25 mg QHS PO Last administered on 01/23/17 20:20; Start 01/19/17 at 21:00; Stop 02/18/17 at 20:59 Lorazepam (Ativan) 0.5 mg BID PRN PO ANXIETY; Start 01/17/17 at 23:00; Stop at 10:19; Status DC Lurasidone HCl (Latuda) 60 mg QHS PO ; Start 01/17/17 at 21:00; Stop 01/19/17 at 09:34; Status DC Lurasidone HCl (Latuda) 60 mg QHS PO Last administered on 01/23/17 20:20; Start 01/20/17 at 21:00; Stop 02/19/17 at 20:59 Magnesium Hydroxide (Milk Of Magnesia) 30 ml DAILYPRN PRN PO CONSTIPATION; Start 01/17/17 at 23:00; Stop 02/16/17 at 22:59 Propranolol HCl (Inderal) 40 mg QHS PRN PO ANXIETY Last administered on 21:49; Start 01/17/17 at 23:00; Stop 01/23/17 at 10:19; Status DC Trazodone HCl (Desyrel) 50 mg QHSP PRN PO INSOMNIA Last administered on 22:07; Start 01/17/17 at 23:00; Stop 02/16/17 at 22:59 Allergies Coded Allergies: No Known Drug Allergy (Unverified Allergy, Unknown, 05/20/12) MARYANN DRAKE MD Jan 24, 2017 09:54
[2017-01-24] MEDS: ACETAMINOPHEN TAB 650MG DOSE (2X325MG) PO PRN ×2 (10:27→17:51)
[2017-01-24 18:00] VITALS: BP 147/91
[2017-01-24] MEDS: lamoTRIgine 25 MG TAB PO SCH (20:26)
[2017-01-24] MEDS: PALIPERIDONE 6 MG ER TAB (INVEGA) PO SCH (20:59)
[2017-01-25 06:53] VITALS: BP 161/93
--- NOTE | 2017-01-25 10:30 | MHIPNPDOC ---
[facility] Progress Note Progress Note DATE OF SERVICE: 01/25/17 HISTORY: Patient has been acting more bizarre, paranoid. Yesterday afternoon patient stated that the staff was giving him uranium. Patient become preoccupied about needing IV saline because he thinks he is dehydrated, despite having oral water available. When asked what thoughts are going through his mind , he stated "you don't want to know." Patient endorses wishing to take his medications, and patient agreed to invega injection. Patient still distrustful, wishes to ask his father about everything. Did not endorse SI intent and plan. VITAL SIGNS: See below. NEW TEST RESULTS: NA CURRENT MEDICATIONS: See below. MENTAL STATUS EXAMINATION: Behavior:guarded, odd Speech: anxious tone Thought processes including: illogical Thought content: preoccupied with details, asking same question over and over again, some paranoia Judgment: poor Insight: poor Orientation: AAOx3 Mood: anxious Affect: anxious DIAGNOSES: 1. bipolar disorder w psychotic features vs schizoaffective ASSESSMENT: Patient has decompensated and his psychotic symptoms are more manifest. Patient states he is willing to take his medications but has paranoid thoughts that make him refuse when the medications are actually offered. Plan: - Patient missed his last night's paliperidone, will give 6 mg dose now - Invega sustenna tmrw, assuming he tolerates the oral med. - Continue lamictal 25 mg daily for mood stabilization - Discontinue home buspar 10 mg TID, ativan 0.5 mg BID PRN, and propranolol 40 mg qhs, lexapro - PRNs: MOM, mylanta, tylenol, trazodone ESTIMATED LENGTH OF STAY: 7+ DAYS. TIME SPENT COUNSELING AND COORDINATING INITIAL CARE: 20 minutes. Vital Signs Vital Signs Date Time Temp Pulse Resp B/P (MAP) Pulse Ox O2 Delivery O2 Flow Rate FiO2 01/25/17 06:53 120 20 161/93 (115) 01/24/17 18:00 97.1 01/24/17 06:35 Room Air Current Medications Current Medications Acetaminophen (Tylenol Tab) 650 mg Q6HP PRN PO HEADACHE or DISCOMFORT Last administered on 01/24/17t 17:51; Start 01/17/17 at 23:00; Stop 02/16/17 at 22:59 Al Hydrox/Mg Hydrox/Simethicone (Mylanta) 30 ml Q4HP PRN PO HEARTBURN/ INDIGESTION; Start 01/17/17 at 23:00; Stop 02/16/17 at 22:59 Buspirone HCl (Buspar) 10 mg TID PO Last administered on 01/22/17 16:03; Start 01/17/17 at 21:00; Stop 01/23/17 at 10:19; Status DC Escitalopram Oxalate (Lexapro) 20 mg QHS PO Last administered on 01/19/17 21: 27; Start 01/18/17 at 21:00; Stop 01/23/17 at 10:19; Status DC Escitalopram Oxalate (Lexapro) 40 mg QHS PO ; Start 01/17/17 at 21:00; Stop 01/18/17 at 10:14; Status DC Home Med (Med Rec Complete!) ASDIRECTED XX ; Start 01/17/17 at 21:30; Stop 01/17/17 at 21:30; Status DC Lamotrigine (LaMICtal) 25 mg QHS PO Last administered on 01/24/17 20:26; Start 01/19/17 at 21:00; Stop 02/18/17 at 20:59 Lorazepam (Ativan) 0.5 mg BID PRN PO ANXIETY; Start 01/17/17 at 23:00; Stop at 10:19; Status DC Lurasidone HCl (Latuda) 60 mg QHS PO ; Start 01/17/17 at 21:00; Stop 01/19/17 at 09:34; Status DC Lurasidone HCl (Latuda) 60 mg QHS PO Last administered on 01/23/17 20:20; Start 01/20/17 at 21:00; Stop 01/24/17 at 11:22; Status DC Magnesium Hydroxide (Milk Of Magnesia) 30 ml DAILYPRN PRN PO CONSTIPATION; Start 01/17/17 at 23:00; Stop 02/16/17 at 22:59 Paliperidone (Invega) 6 mg QHS PO ; Start 01/24/17 at 21:00; Stop 02/23/17 at 20:59 Propranolol HCl (Inderal) 40 mg QHS PRN PO ANXIETY Last administered on 21:49; Start 01/17/17 at 23:00; Stop 01/23/17 at 10:19; Status DC Trazodone HCl (Desyrel) 50 mg QHSP PRN PO INSOMNIA Last administered on t 22:07; Start 01/17/17 at 23:00; Stop 02/16/17 at 22:59 Allergies Coded Allergies: No Known Drug Allergy (Unverified Allergy, Unknown, 05/20/12) MARYANN DRAKE MD Jan 25, 2017 10:30
[2017-01-25] MEDS: PALIPERIDONE 6 MG ER TAB (INVEGA) PO ONE ×2 (11:20→12:59)
[2017-01-25] MEDS: ACETAMINOPHEN TAB 650MG DOSE (2X325MG) PO PRN (17:14)
[2017-01-25 18:00] VITALS: BP 140/83
[2017-01-25] MEDS: PALIPERIDONE 6 MG ER TAB (INVEGA) PO SCH (19:09)
[2017-01-25] MEDS: lamoTRIgine 25 MG TAB PO SCH (19:09)
[2017-01-25] MEDS: HALOPERIDOL 5 MG TAB PO PRN (19:54)
[2017-01-25] MEDS: LORazepam 2 MG TAB PO PRN (19:54)
[2017-01-26 06:47] VITALS: BP 130/72
--- NOTE | 2017-01-26 10:55 | MHIPNPDOC ---
[facility] Progress Note Progress Note DATE OF SERVICE: 01/26/17 HISTORY: Patient took his paliperidone last night, denies side effects. States he is less manic, reports good sleep. States he wishes to continue with Dr. Ambar moore, admits that he was manic on prior days. Did not endorse AVH, current manic symptoms, SI intent or plan. Looks forward to receiving invega sustenna shot today. VITAL SIGNS: See below. NEW TEST RESULTS: na CURRENT MEDICATIONS: See below. MENTAL STATUS EXAMINATION: Behavior: in bed, sleepy, cooperative, calm Speech: normal RRV, tired tone Thought processes including: linear Thought content: appropriate to conversation Judgment: improving Insight: improving Orientation: AAOx3 Mood: better Affect: neutral, appropriate DIAGNOSES: 1. bipolar disorder w psychotic features vs schizoaffective ASSESSMENT: Patient's manic symptoms have largely subsided after his two doses paliperidone. Patient is more logical now and wishes to have invega shot and resume care with Dr. Ambar moore. Plan - Invega sustenna today - Continue lamictal 25 mg daily for mood stabilization - Discontinue home buspar 10 mg TID, ativan 0.5 mg BID PRN, and propranolol 40 mg qhs, lexapro - PRNs: MOM, mylanta, tylenol, trazodone ESTIMATED LENGTH OF STAY: 7+ DAYS. TIME SPENT COUNSELING AND COORDINATING INITIAL CARE: 20 minutes. Vital Signs Vital Signs Date Time Temp Pulse Resp B/P (MAP) Pulse Ox O2 Delivery O2 Flow Rate FiO2 01/26/17 06:47 98.9 100 14 130/72 (91) 01/24/17 06:35 Room Air Current Medications Current Medications Acetaminophen (Tylenol Tab) 650 mg Q6HP PRN PO HEADACHE or DISCOMFORT Last administered on 01/25/17 17:14; Start 01/17/17 at 23:00; Stop 02/16/17 at 22:59 Al Hydrox/Mg Hydrox/Simethicone (Mylanta) 30 ml Q4HP PRN PO HEARTBURN/ INDIGESTION; Start 01/17/17 at 23:00; Stop 02/16/17 at 22:59 Buspirone HCl (Buspar) 10 mg TID PO Last administered on 01/22/17 16:03; Start 01/17/17 at 21:00; Stop 01/23/17 at 10:19; Status DC Escitalopram Oxalate (Lexapro) 20 mg QHS PO Last administered on 01/19/17 21: 27; Start 01/18/17 at 21:00; Stop 01/23/17 at 10:19; Status DC Escitalopram Oxalate (Lexapro) 40 mg QHS PO ; Start 01/17/17 at 21:00; Stop 01/18/17 at 10:14; Status DC Haloperidol (Haldol) 5 mg Q4HP PRN PO AGITATION Last administered on 19:54; Start 01/25/17 at 19:45; Stop 02/24/17 at 19:44 Home Med (Med Rec Complete!) ASDIRECTED XX ; Start 01/17/17 at 21:30; Stop 01/17/17 at 21:30; Status DC Lamotrigine (LaMICtal) 25 mg QHS PO Last administered on 01/25/17 19:09; Start 01/19/17 at 21:00; Stop 02/18/17 at 20:59 Lorazepam (Ativan) 0.5 mg BID PRN PO ANXIETY; Start 01/17/17 at 23:00; Stop at 10:19; Status DC Lorazepam (Ativan) 2 mg Q4HP PRN PO ANXIETY/AGITATION Last administered on 19:54; Start 01/25/17 at 19:45; Stop 02/01/17 at 19:44 Lurasidone HCl (Latuda) 60 mg QHS PO ; Start 01/17/17 at 21:00; Stop 01/19/17 at 09:34; Status DC Lurasidone HCl (Latuda) 60 mg QHS PO Last administered on 01/23/17 20:20; Start 01/20/17 at 21:00; Stop 01/24/17 at 11:22; Status DC Magnesium Hydroxide (Milk Of Magnesia) 30 ml DAILYPRN PRN PO CONSTIPATION; Start 01/17/17 at 23:00; Stop 02/16/17 at 22:59 Paliperidone (Invega) 6 mg QHS PO Last administered on 01/25/17 19:09; Start 01/24/17 at 21:00; Stop 02/23/17 at 20:59 Propranolol HCl (Inderal) 40 mg QHS PRN PO ANXIETY Last administered on 21:49; Start 01/17/17 at 23:00; Stop 01/23/17 at 10:19; Status DC Trazodone HCl (Desyrel) 50 mg QHSP PRN PO INSOMNIA Last administered on 22:07; Start 01/17/17 at 23:00; Stop 02/16/17 at 22:59 Allergies Coded Allergies: No Known Drug Allergy (Unverified Allergy, Unknown, 05/20/12) MARYANN DRAKE MD Jan 26, 2017 10:55
[2017-01-26] MEDS ORDERED: PALIPERIDONE PALMITATE 234 MG/1.5 ML INJ (INVEGA SUSTENNA)(J2426) IM ONE (13:30)
[2017-01-26] MEDS: ACETAMINOPHEN TAB 650MG DOSE (2X325MG) PO PRN (16:59)
[2017-01-26 18:00] VITALS: BP 123/76
[2017-01-26] MEDS: lamoTRIgine 25 MG TAB PO SCH (21:00)
[2017-01-26] MEDS: PALIPERIDONE 6 MG ER TAB (INVEGA) PO SCH (21:00)
[2017-01-27 06:39] VITALS: BP 120/80
[2017-01-27 18:37] VITALS: BP 137/84
[2017-01-27] MEDS: lamoTRIgine 25 MG TAB PO SCH (20:00)
[2017-01-27] MEDS: HALOPERIDOL 5 MG TAB PO PRN (20:03)
[2017-01-27] MEDS: LORazepam 2 MG TAB PO PRN (20:03)
[2017-01-28 06:37] VITALS: BP 120/90
[2017-01-28] MEDS: LORazepam 2 MG TAB PO PRN ×2 (12:57→19:00)
[2017-01-28] MEDS: HALOPERIDOL 5 MG TAB PO PRN ×2 (12:58→19:00)
[2017-01-28 18:09] VITALS: BP 117/76
[2017-01-28] MEDS: lamoTRIgine 25 MG TAB PO SCH (21:37)
[2017-01-29 06:34] VITALS: BP 139/69
[2017-01-29] MEDS: LORazepam 2 MG TAB PO PRN ×3 (09:48→21:06)
[2017-01-29] MEDS: HALOPERIDOL 5 MG TAB PO PRN ×2 (09:48→21:06)
--- NOTE | 2017-01-29 10:39 | MHIPNPDOC ---
[facility] Progress Note Progress Note DATE OF SERVICE: 01/29/17 HISTORY: Patient states that he is no longer manic, admits to his behaviors a few days ago being manic. States he wishes to see Dr. Villalta outpatient and to continue the invega injections. Discussed with patient the side effects of invega. Patient reports good sleep, reports OK mood, denies side effects from invega injection. Did not endorse AVH, SI intent or plan. VITAL SIGNS: See below. NEW TEST RESULTS: na CURRENT MEDICATIONS: See below. MENTAL STATUS EXAMINATION: Behavior: related, cooperative, calm Speech: normal RRVT Thought processes including: linear Thought content: appropriate to conversation Judgment: fair Insight: fair Orientation: AAOx3 Mood: better Affect: neutral, appropriate DIAGNOSES: 1. bipolar disorder w psychotic features ASSESSMENT: Patient's manic symptoms have largely subsided after invega injection last week. Patient wants to be on as few medications as possible, will allow the rest of this psych meds to be discontinued. Plan - Invega sustenna was given 01/26/17 - Discontinue lamictal as patient's invega injection seems to be enough - Discontinue home buspar 10 mg TID, ativan 0.5 mg BID PRN, and propranolol 40 mg qhs, lexapro - PRNs: MOM, mylanta, tylenol, trazodone ESTIMATED LENGTH OF STAY: 7+ DAYS. TIME SPENT COUNSELING AND COORDINATING INITIAL CARE: 20 minutes. Vital Signs Vital Signs Date Time Temp Pulse Resp B/P (MAP) Pulse Ox O2 Delivery O2 Flow Rate FiO2 01/29/17 06:34 96.4 63 16 139/69 (92) 01/27/17 06:39 Room Air Current Medications Current Medications Acetaminophen (Tylenol Tab) 650 mg Q6HP PRN PO HEADACHE or DISCOMFORT Last administered on 01/26/17 16:59; Start 01/17/17 at 23:00; Stop 02/16/17 at 22:59 Al Hydrox/Mg Hydrox/Simethicone (Mylanta) 30 ml Q4HP PRN PO HEARTBURN/ INDIGESTION; Start 01/17/17 at 23:00; Stop 02/16/17 at 22:59 Buspirone HCl (Buspar) 10 mg TID PO Last administered on 01/22/17 16:03; Start 01/17/17 at 21:00; Stop 01/23/17 at 10:19; Status DC Escitalopram Oxalate (Lexapro) 20 mg QHS PO Last administered on 01/19/17 21: 27; Start 01/18/17 at 21:00; Stop 01/23/17 at 10:19; Status DC Escitalopram Oxalate (Lexapro) 40 mg QHS PO ; Start 01/17/17 at 21:00; Stop 01/18/17 at 10:14; Status DC Haloperidol (Haldol) 5 mg Q4HP PRN PO AGITATION Last administered on 09:48; Start 01/25/17 at 19:45; Stop 02/24/17 at 19:44 Home Med (Med Rec Complete!) ASDIRECTED XX ; Start 01/17/17 at 21:30; Stop 01/17/17 at 21:30; Status DC Lamotrigine (LaMICtal) 25 mg QHS PO Last administered on 01/25/17 19:09; Start 01/19/17 at 21:00; Stop 01/27/17 at 17:18; Status DC Lamotrigine (LaMICtal) 50 mg QHS PO Last administered on 01/28/17 21:37; Start 01/27/17 at 21:00; Stop 02/26/17 at 20:59 Lorazepam (Ativan) 0.5 mg BID PRN PO ANXIETY; Start 01/17/17 at 23:00; Stop at 10:19; Status DC Lorazepam (Ativan) 2 mg Q4HP PRN PO ANXIETY/AGITATION Last administered on 09:48; Start 01/25/17 at 19:45; Stop 02/01/17 at 19:44 Lurasidone HCl (Latuda) 60 mg QHS PO ; Start 01/17/17 at 21:00; Stop 01/19/17 at 09:34; Status DC Lurasidone HCl (Latuda) 60 mg QHS PO Last administered on 01/23/17 20:20; Start 01/20/17 at 21:00; Stop 01/24/17 at 11:22; Status DC Magnesium Hydroxide (Milk Of Magnesia) 30 ml DAILYPRN PRN PO CONSTIPATION; Start 01/17/17 at 23:00; Stop 02/16/17 at 22:59 Paliperidone (Invega) 6 mg QHS PO Last administered on 01/25/17 19:09; Start 01/24/17 at 21:00; Stop 01/27/17 at 17:18; Status DC Propranolol HCl (Inderal) 40 mg QHS PRN PO ANXIETY Last administered on 21:49; Start 01/17/17 at 23:00; Stop 01/23/17 at 10:19; Status DC Trazodone HCl (Desyrel) 50 mg QHSP PRN PO INSOMNIA Last administered on 22:07; Start 01/17/17 at 23:00; Stop 02/16/17 at 22:59 Allergies Coded Allergies: No Known Drug Allergy (Unverified Allergy, Unknown, 05/20/12) MARYANN DRAKE MD Jan 29, 2017 10:39
[2017-01-29 18:00] VITALS: BP 131/82
[2017-01-29] MEDS: lamoTRIgine 25 MG TAB PO SCH (21:00)
[2017-01-30 06:11] VITALS: BP 118/80
[2017-01-30] MEDS: LORazepam 2 MG TAB PO PRN ×2 (11:46→17:35)
[2017-01-30] MEDS: HALOPERIDOL 5 MG TAB PO PRN ×3 (11:47→20:03)
--- NOTE | 2017-01-30 14:01 | MHIPNPDOC ---
[facility] Progress Note Progress Note DATE OF SERVICE: 01/30/17 HISTORY: Pt reflects on his hospitalization course, states that he was manic, states that he learned that he should always take his medications, is agreeable to continuing the shot, and is agreeable to seeing Dr. Villalta outpatient. Patient denies current manic symptoms, had good sleep, did not endorse SI intent and plan, reports OK mood. Pt admits to feeling anxious, discussed with patient about starting him back on an SSRI outpatient. VITAL SIGNS: See below. NEW TEST RESULTS: NA CURRENT MEDICATIONS: See below. MENTAL STATUS EXAMINATION: Behavior: related, cooperative, calm Speech: normal RRVT Thought processes including: linear Thought content: appropriate to conversation Judgment: fair Insight: fair Orientation: AAOx3 Mood: better Affect: neutral, appropriate DIAGNOSES: 1. bipolar disorder w psychotic features ASSESSMENT: Patient's manic symptoms have largely subsided after invega injection last week. Patient wants to be on as few medications as possible, will allow the rest of this psych meds to be discontinued. Plan - Invega sustenna was given 01/26/17 - Discontinue lamictal as patient's invega injection seems to be enough - Discontinue home buspar 10 mg TID, ativan 0.5 mg BID PRN, and propranolol 40 mg qhs, lexapro - PRNs: MOM, mylanta, tylenol, trazodone ESTIMATED LENGTH OF STAY: 7+ DAYS. TIME SPENT COUNSELING AND COORDINATING INITIAL CARE: 20 minutes. Vital Signs Vital Signs Date Time Temp Pulse Resp B/P (MAP) Pulse Ox O2 Delivery O2 Flow Rate FiO2 01/30/17 06:11 99.0 82 17 118/80 (93) 01/27/17 06:39 Room Air Current Medications Current Medications Acetaminophen (Tylenol Tab) 650 mg Q6HP PRN PO HEADACHE or DISCOMFORT Last administered on 01/26/17 16:59; Start 01/17/17 at 23:00; Stop 02/16/17 at 22:59 Al Hydrox/Mg Hydrox/Simethicone (Mylanta) 30 ml Q4HP PRN PO HEARTBURN/ INDIGESTION; Start 01/17/17 at 23:00; Stop 02/16/17 at 22:59 Buspirone HCl (Buspar) 10 mg TID PO Last administered on 01/22/17 16:03; Start 01/17/17 at 21:00; Stop 01/23/17 at 10:19; Status DC Escitalopram Oxalate (Lexapro) 20 mg QHS PO Last administered on 01/19/17 21: 27; Start 01/18/17 at 21:00; Stop 01/23/17 at 10:19; Status DC Escitalopram Oxalate (Lexapro) 40 mg QHS PO ; Start 01/17/17 at 21:00; Stop 01/18/17 at 10:14; Status DC Haloperidol (Haldol) 5 mg Q4HP PRN PO AGITATION Last administered on 11:47; Start 01/25/17 at 19:45; Stop 02/24/17 at 19:44 Home Med (Med Rec Complete!) ASDIRECTED XX ; Start 01/17/17 at 21:30; Stop 01/17/17 at 21:30; Status DC Lamotrigine (LaMICtal) 25 mg QHS PO Last administered on 01/25/17 19:09; Start 01/19/17 at 21:00; Stop 01/27/17 at 17:18; Status DC Lamotrigine (LaMICtal) 50 mg QHS PO Last administered on 01/28/17 21:37; Start 01/27/17 at 21:00; Stop 02/26/17 at 20:59 Lorazepam (Ativan) 0.5 mg BID PRN PO ANXIETY; Start 01/17/17 at 23:00; Stop at 10:19; Status DC Lorazepam (Ativan) 2 mg Q4HP PRN PO ANXIETY/AGITATION Last administered on 11:46; Start 01/25/17 at 19:45; Stop 02/01/17 at 19:44 Lurasidone HCl (Latuda) 60 mg QHS PO ; Start 01/17/17 at 21:00; Stop 01/19/17 at 09:34; Status DC Lurasidone HCl (Latuda) 60 mg QHS PO Last administered on 01/23/17 20:20; Start 01/20/17 at 21:00; Stop 01/24/17 at 11:22; Status DC Magnesium Hydroxide (Milk Of Magnesia) 30 ml DAILYPRN PRN PO CONSTIPATION; Start 01/17/17 at 23:00; Stop 02/16/17 at 22:59 Paliperidone (Invega) 6 mg QHS PO Last administered on 01/25/17 19:09; Start 01/24/17 at 21:00; Stop 01/27/17 at 17:18; Status DC Propranolol HCl (Inderal) 40 mg QHS PRN PO ANXIETY Last administered on 21:49; Start 01/17/17 at 23:00; Stop 01/23/17 at 10:19; Status DC Trazodone HCl (Desyrel) 50 mg QHSP PRN PO INSOMNIA Last administered on 22:07; Start 01/17/17 at 23:00; Stop 02/16/17 at 22:59 Allergies Coded Allergies: No Known Drug Allergy (Unverified Allergy, Unknown, 05/20/12) MARYANN DRAKE MD Jan 30, 2017 14:00
[2017-01-30 18:00] VITALS: BP 122/70
[2017-01-30] MEDS: lamoTRIgine 25 MG TAB PO SCH (20:04)
[2017-01-31 06:49] VITALS: BP 131/69
[2017-01-31] MEDS: HALOPERIDOL 5 MG TAB PO PRN (10:52)
[2017-01-31] MEDS: LORazepam 2 MG TAB PO PRN ×2 (10:52→17:17)
--- NOTE | 2017-01-31 12:25 | MHIPNPDOC ---
[facility] Progress Note Progress Note DATE OF SERVICE: 01/31/17 HISTORY: Pt reports feeling anxious about his future. Denies manic symptoms but states that he is a little disorganized. He takes the PRN haldol 5 mg to alleviate the disorganization. Denies AVH, reports good sleep, did not endorse SI intent and plan. States he wishes to switch to [facility] because it worked for him but his insurance does not cover it, so he is OK with being on Haldol for now. VITAL SIGNS: See below. NEW TEST RESULTS: NA CURRENT MEDICATIONS: See below. MENTAL STATUS EXAMINATION: Behavior: related, cooperative Speech: normal RRVT Thought processes including: linear Thought content: appropriate to conversation Judgment: from fair to poor, varies at times Insight: fair Orientation: AAOx3 Mood: anxious Affect: anxious, appropriate DIAGNOSES: 1. schizoaffective ASSESSMENT: Patient is no longer manic without AVH but has some disorganized thought, relief with haldol Plan - Invega sustenna was given 01/26/17. Will give his booster tomorrow (day 7), which is close enough to the recommended day 8 booster. - Begin Haldol 5 mg BID for psychosis - Likely DC tomorrow, will speak with Dr. Villalta - Discontinue lamictal as patient does not have manic symptoms - Discontinue home buspar 10 mg TID, ativan 0.5 mg BID PRN, and propranolol 40 mg qhs, lexapro - PRNs: MOM, mylanta, tylenol, trazodone ESTIMATED LENGTH OF STAY: 7+ DAYS. TIME SPENT COUNSELING AND COORDINATING INITIAL CARE: 20 minutes. Vital Signs Vital Signs Date Time Temp Pulse Resp B/P (MAP) Pulse Ox O2 Delivery O2 Flow Rate FiO2 01/31/17 08:46 Room Air 01/31/17 06:49 98.3 86 14 131/69 (89) Current Medications Current Medications Acetaminophen (Tylenol Tab) 650 mg Q6HP PRN PO HEADACHE or DISCOMFORT Last administered on 01/26/17t 16:59; Start 01/17/17 at 23:00; Stop 02/16/17 at 22:59 Al Hydrox/Mg Hydrox/Simethicone (Mylanta) 30 ml Q4HP PRN PO HEARTBURN/ INDIGESTION; Start 01/17/17 at 23:00; Stop 02/16/17 at 22:59 Buspirone HCl (Buspar) 10 mg TID PO Last administered on 01/22/17 16:03; Start 01/17/17 at 21:00; Stop 01/23/17 at 10:19; Status DC Escitalopram Oxalate (Lexapro) 20 mg QHS PO Last administered on 01/19/17 21: 27; Start 01/18/17 at 21:00; Stop 01/23/17 at 10:19; Status DC Escitalopram Oxalate (Lexapro) 40 mg QHS PO ; Start 01/17/17 at 21:00; Stop 01/18/17 at 10:14; Status DC Haloperidol (Haldol) 5 mg Q4HP PRN PO AGITATION Last administered on 10:52; Start 01/25/17 at 19:45; Stop 02/24/17 at 19:44 Home Med (Med Rec Complete!) ASDIRECTED XX ; Start 01/17/17 at 21:30; Stop 01/17/17 at 21:30; Status DC Lamotrigine (LaMICtal) 25 mg QHS PO Last administered on 01/25/17 19:09; Start 01/19/17 at 21:00; Stop 01/27/17 at 17:18; Status DC Lamotrigine (LaMICtal) 50 mg QHS PO Last administered on 01/28/17 21:37; Start 01/27/17 at 21:00; Stop 02/26/17 at 20:59 Lorazepam (Ativan) 0.5 mg BID PRN PO ANXIETY; Start 01/17/17 at 23:00; Stop at 10:19; Status DC Lorazepam (Ativan) 2 mg Q4HP PRN PO ANXIETY/AGITATION Last administered on 10:52; Start 01/25/17 at 19:45; Stop 02/01/17 at 19:44 Lurasidone HCl (Latuda) 60 mg QHS PO ; Start 01/17/17 at 21:00; Stop 01/19/17 at 09:34; Status DC Lurasidone HCl (Latuda) 60 mg QHS PO Last administered on 01/23/17 20:20; Start 01/20/17 at 21:00; Stop 01/24/17 at 11:22; Status DC Magnesium Hydroxide (Milk Of Magnesia) 30 ml DAILYPRN PRN PO CONSTIPATION; Start 01/17/17 at 23:00; Stop 02/16/17 at 22:59 Paliperidone (Invega) 6 mg QHS PO Last administered on 01/25/17 19:09; Start 01/24/17 at 21:00; Stop 01/27/17 at 17:18; Status DC Propranolol HCl (Inderal) 40 mg QHS PRN PO ANXIETY Last administered on 21:49; Start 01/17/17 at 23:00; Stop 01/23/17 at 10:19; Status DC Trazodone HCl (Desyrel) 50 mg QHSP PRN PO INSOMNIA Last administered on 22:07; Start 01/17/17 at 23:00; Stop 02/16/17 at 22:59 Allergies Coded Allergies: No Known Drug Allergy (Unverified Allergy, Unknown, 05/20/12) MARYANN DRAKE MD Jan 31, 2017 12:25
[2017-01-31 18:00] VITALS: BP 122/74
[2017-01-31] MEDS: HALOPERIDOL 5 MG TAB PO SCH (21:00)
[2017-02-01 06:47] VITALS: BP 121/62
[2017-02-01] MEDS ORDERED: chlordiazePOXIDE 25 MG CAP PO ONE (08:00)
[2017-02-01] MEDS ORDERED: PALIPERIDONE PALMITATE 156 MG/1ML INJ(INVEGA SUSTENNA)(J2426) IM ONE (08:00)
[2017-02-01] MEDS: HALOPERIDOL 5 MG TAB PO SCH (09:00)
[2017-02-01] MEDS: LORazepam 2 MG TAB PO PRN (09:22)
[2017-02-01] MEDS ORDERED: HALO5TA PO (10:14)
[2017-02-01] MEDS ORDERED: TRAZ50TA11 PO (10:14)
--- NOTE | 2017-02-01 13:20 | MHDSPDOC ---
[facility] Discharge Summary Discharge Summary DATE OF ADMISSION: Jan 17, 2017 at 22:54 DATE OF DISCHARGE: Feb 01, 2017 at 12:00 DISCHARGE DIAGNOSES: 1. 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 This is a patient of Dr. 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 Patient brought in by [facility], accompanied by father. Patient has been irritable, engaging in high risk activities, and slightly more energized. At home has been getting into arguments with his parents, has been going out alone and driving aggressively, which is a behavior he engages in when manic. Patient acknowledges that he is acting strangely, states that he has skipped a few doses of his latuda, unable to provide a clear reason why. Patient states that he is OK with going back on the medication. Denies difficulty sleeping, SI intent and plan, depression, AVH. States in the past he has had AH of whispers, but had not has AH in the last several months. Believes the AH is triggered by stress. Denies history of delusions, VH. Patient states the Latuda has adequately contained his manic symptoms, denies any side effects. He believes the no longer needs to be on the lexapro and requests to discontinue the medication. Patient is OK with continuing the propranolol 40 mg qhs (for anxiety), ativan 0.5 mg PRN (which he takes only a few times a week), buspar 10 mg TID. CONSULTANTS INVOLVED: na TREATMENT AND PROGRESS ON THE UNIT: Patient initially minimized his symptoms, repeatedly asking to be discharge. He was prescribed his home medications lexapro 20 mg daily, buspar 10 mg TID, propranolol 40 mg qhs PRN for anxiety, and latuda 60 mg qhs for bipolar/ psychosis. He also refused all of his psychiatric medications. After several days, the patient's presentation worsened. He became more disorganized, began asking the same questions multiple times per day, demonstrated illogical and unrealistic thoughts pertaining to his plans after he is discharged, and began having paranoid thoughts including thinking he was taking uranium here in the hospital. Did not endorse any AVH, hyperactivity, elation. He continued to sleep normally and speak at a normal rate, though was at times mildly hyperverbal and grandiose. He would intermittently have insight into his illness. He finally agreed to take some of his medications, the latuda, and he agreed to taking lamictal 25 mg qhs. He presentation improved greatly with just these two medications, though he remained mildly disorganized. Given that he has a history of intermittent poor compliance outpatient, the team believed that he would benefit from being put on Invega detention injection. The patient also had concerns that he was going to lose his insurance and that latuda was too expensive to take outpatient. The latuda was discontinued and the patient was put on paliperidone 3 mg qhs, titrated up to 6 mg qhs, which he tolerated well. The lamictal was dropped as well as it his symptoms were mostly psychotic rather than manic. He was given the Invega Sustenna injection on 01/26/17, and booster of Sustenna 156 mg given day 7, 02/01/17. It was found on the day of discharge that his prolactin level was mildly elevated at 27 (this level was checked after conversation with his outpatient provider Dr. Villalta informed this provider that he had hyperprolactinemia with risperdal in the past). Patient did not endorse any hyperprolactinemia symptoms on discharge. DISCHARGE ASSESSMENT: Patient was linear, euthymic, without AVH, without manic symptoms, grossly organized. By observation, he appeared to be without psychotic symptoms, though his parents noted the day before discharge that he was still a little bit off from his highest functioning. Patient states that he becomes anxious intermittently. MENTAL STATUS EXAMINATION ON DISCHARGE: Behavior: related, cooperative Speech: normal RRVT Thought processes including: linear Thought content: appropriate to conversation Judgment: fair Insight: fair Orientation: AAOx3 Mood: OK Affect: euthymic, appropriate MEDICATIONS ON DISCHARGE: - Invega Sustenna 234 mg IM was given 01/26/17. Booster of Sustenna 156 mg given day 7, 02/01/17 - Haldol 5 mg BID for psychosis PLAN/FOLLOWUP ARRANGEMENTS: - Patient would likely benefit from restarting an SSRI outpt. 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 Would advise another prolactin level before he receives his second month of Invega Sustenna. - Outpt followup with Dr. Villalta The amount of time spent in the coordination of care for this patient was approximately 30 minutes. Vital Signs/I&Os Vital Signs Date Time Temp Pulse Resp B/P (MAP) Pulse Ox O2 Delivery O2 Flow Rate FiO2 02/01/17 06:47 97.9 85 18 121/62 (81) 01/31/17 08:46 Room Air Laboratory Data Labs 24H Laboratory Tests 2 02/01/17 10:52: Prolactin 26.6H Medications Scheduled Haloperidol (Haloperidol) 5 Mg Tab, 5 MG PO BID for SEE LABEL COMMENTS for 7 Days, #14 Scheduled PRN Trazodone HCl (Trazodone HCl) 50 Mg Tab, 50 MG PO QHS PRN for SLEEP for 7 Days, #7 Allergies Coded Allergies: No Known Drug Allergy (Unverified Allergy, Unknown, 05/20/12) MARYANN DRAKE MD Feb 01, 2017 13:20
== END 2017-02-01 12:00 | disposition home or self-care (01) | DRG 750 ==
LOC: M ED 16:47 → M ED INP 22:54 → M PSY 01-18 00:22
PROVIDERS: ADMIT Psychiatry & Neurology Psychiatry; ATTEND Psychiatry & Neurology Psychiatry
DX: F25.9 Schizoaffective disorder, unspecified (principal); Z79.899 Other long term (current) drug therapy

== ENCOUNTER → 2017-02-19 | Outpatient (REF) | payer OTHER | LOC: M SFHCPLAZ 12:55 | DX: F25.9 Schizoaffective disorder, unspecified (principal); E22.1 Hyperprolactinemia; D72.819 Decreased white blood cell count, unspecified; E29.1 Testicular hypofunction; E78.5 Hyperlipidemia, unspecified; R73.01 Impaired fasting glucose ==

== ENCOUNTER → 2018-02-01 | Outpatient (REF) | payer MEDICAID, OTHER ==
[~2018-02-01] MED LIST changes: +HALO5TA PO; +LATU1TAB PO; +LORA0.5T11 PO; -PROP1TAB29 PO; +PROP20TA72 PO; +PROP40TA62 PO; +TRAZ-160 PO
[2018-02-01 12:23] LABS: ALBUMIN 4.2 GM/DL (3.2-5.2); ALT/SGPT 30 U/L (12-78); BILIRUBIN,TOTAL 0.5 MG/DL (0.2-1.0); BLOOD UREA NITROGEN 12 MG/DL (7-18); CALCIUM LEVEL 9.4 MG/DL (8.5-10.1); CARBON DIOXIDE LEVEL 30 MEQ/L (21-32); CHLORIDE LEVEL 102 MEQ/L (98-107); CREATININE FOR GFR 1.06 MG/DL (0.70-1.30); GLOMERULAR FILTRATION RATE > 60.0 (>60); GLUCOSE, FASTING 95 MG/DL (70-100); POTASSIUM SERUM 4.4 MEQ/L (3.5-5.1); SODIUM LEVEL 139 MEQ/L (136-145); TOTAL PROTEIN 7.7 GM/DL (6.4-8.2)
[2018-02-01 12:31] LABS: PROLACTIN 63.6 NG/ML (2.1-17.7)
[2018-02-01 12:56] LABS: HEMOGLOBIN A1c 5.5 %
== END ==
LOC: M LABDRAWP 11:42
PROVIDERS: ATTEND Psychiatry & Neurology Psychiatry
DX: Z79.899 Other long term (current) drug therapy (principal)

== ENCOUNTER 2019-01-15 12:20 | Inpatient (IN) | payer MEDICAID, OTHER ==
[~2019-01-15] VITALS: Ht 188 cm; Wt 108.0 kg
[~2019-01-15 12:20] MED LIST changes: -/ESCI20TA; +LEXA1TAB2; -TRAZ-160 PO; +TRAZ-252 PO
[2019-01-15] MEDS ORDERED: INVE234I INJ (12:31)
[2019-01-15] MEDS ORDERED: REXU1TAB5 PO (12:31)
[2019-01-15] MEDS ORDERED: LATU120T PO (12:31)
[2019-01-15 12:58] LABS: HEMATOCRIT 42.7 % (42.0-52.0); HEMOGLOBIN 14.2 g/dl (13.5-17.5); MEAN CORPUSCULAR HEMOGLOBIN 29.9 pg (27.0-33.0); MEAN CORPUSCULAR HGB CONC 33.3 g/dl (32.0-36.5); MEAN CORPUSCULAR VOLUME 89.9 fl (80.0-96.0); PLATELET COUNT, AUTOMATED 298 10^3/uL (150-450); RED BLOOD COUNT 4.75 10^6/uL (4.30-6.10); WHITE BLOOD COUNT 9.7 10^3/uL (4.0-10.0)
[2019-01-15 13:27] LABS: AMPHETAMINES LEVEL URINE NEGATIVE (NEGATIVE); BARBITURATES URINE NEGATIVE (NEGATIVE); BENZODIAZEPINES URINE NEGATIVE (NEGATIVE); CANNABINOIDS URINE NEGATIVE (NEGATIVE); COCAINE METABOLITE URINE NEGATIVE (NEGATIVE); METHADONE URINE NEGATIVE (NEGATIVE); OPIATES URINE NEGATIVE (NEGATIVE); PHENCYCLIDINE URINE NEGATIVE (NEGATIVE)
[2019-01-15 13:45] LABS: ACETAMINOPHEN LEVEL < 2.0 UG/ML (10.0-30.0); ALBUMIN 3.7 GM/DL (3.2-5.2); ALT/SGPT 24 U/L (12-78); BILIRUBIN,DIRECT 0.1 MG/DL (0.0-0.2); BILIRUBIN,TOTAL 0.5 MG/DL (0.2-1.0); BLOOD UREA NITROGEN 11 MG/DL (7-18); CARBON DIOXIDE LEVEL 27 MEQ/L (21-32); CHLORIDE LEVEL 102 MEQ/L (98-107); ETHYL ALCOHOL (ETHANOL) 0.023 % (0.000-0.010); GLOMERULAR FILTRATION RATE > 60.0 (>60); GLUCOSE, FASTING 105 MG/DL (70-100); POTASSIUM SERUM 3.8 MEQ/L (3.5-5.1); SALICYLATE LEVEL < 1.7 MG/DL (5.0-30.0); SODIUM LEVEL 138 MEQ/L (136-145); TOTAL PROTEIN 7.3 GM/DL (6.4-8.2)
[2019-01-15] MEDS ORDERED: LORazepam 2 MG TAB PO STA (15:46)
[2019-01-15] MEDS ORDERED: MAALOX 30 ML SUSP *UDC PO PRN (17:45)
[2019-01-15] MEDS ORDERED: MOM 30ML SUSPENSION UDC PO PRN (17:45)
[2019-01-15] MEDS ORDERED: ACETAMINOPHEN TAB 650MG DOSE (2X325MG) PO PRN (17:45)
[2019-01-15] MEDS ORDERED: LORazepam 1 MG TAB PO PRN (17:45)
[2019-01-15 20:17] VITALS: BP 131/71
[2019-01-15] MEDS: BREXPIPRAZOLE 0.5MG TABLET (REXULTI) PO SCH (20:58)
[2019-01-15] MEDS: traZODone 50 MG TAB PO PRN (23:56)
[2019-01-16 06:10] VITALS: BP 129/85
--- NOTE | 2019-01-16 07:57 | MHHPEPDOC ---
[facility] History & Physical History and Physical DATE OF ADMISSION: Jan 15, 2019 at 17:45 New Patient Mike Singletary MRN: N/A Date of : N/A Date of Service: 01/16/2019 Chief Complaint "I don't know why I am here." History of Present Illness Patient a 33-year-old man with a history of schizoaffective disorder is brought in by his outpatient psychiatrist due to decreasing function and increasing paranoia. He lives at home with his mother and father and has previously been here and has been non-compliant with his home medications. Reportedly after he's become non-compliant with his home medications of brexpiprazole and Latuda as well as an injectable anti-psychotic, he has become more bizarre, paranoid and unable to care for himself. A pick-up order was called and he was brought in for assessment. He was responding to internal stimuli and unable to care for himself and he was admitted out of an abundance of caution. When I attempted to meet with the patient, the patient reported that he was unsure of why he was admitted; however, he was responding to internal stimuli, bizarre and unable to describe any information to me in any meaningful sense. He was confused and disorientated for the most part. Review of the psychosocial information from previous charts was extracted and provided below and updated as appropriate. Review Of Systems Unable to capture due to patient's mental status. Past Psychiatric History Has a history of schizoaffective disorder, currently on Latuda and Rexulti with an injectable anti-psychotic, treated by Dr. Villalta at [facility] for the last several years. He has no reported history of suicide attempts and has one last hospitalization in 2017 in [facility]. Allergies Please see below. Family Psychiatric History His mother has a history of depression and his mother's brother has a history of a psychotic illness. Unclear if any history of addictions for suicide. Social History The patient currently lives at home. He is single, unmarried with no children. He is reportedly unemployed. 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 He currently lives with his mother and father. His father is a well-known physician in the local area. No notable legal history. Substance Abuse History Has a history of alcohol use with binge drinking, but no other tobacco, illicit drug use or notable substance use history. Medical History Patient has no significant past medical history. Mental Status Examination General: Poor hygiene Speech: Sparse Thought processes: Tangential MSK: Smooth and coordinated gait, no signs of tremors or involuntary orofacial movements Thought content: Paranoid Abstract reasoning, and computation: Impaired Description of associations: Impaired Description of abnormal or psychotic thoughts: Denies any suicidal or homicidal ideation. Denies any auditory or visual hallucinations. Does not appear to be responding to internal stimuli. Does not appear to be endorsing any bizarre or paranoid ideation. Judgment: Poor Insight: Poor Orientation: Alert and orientated 3 Cognition: Grossly normal Recent and remote memory: Intact Attention span and concentration: Intact Fund of knowledge: Adequate Mood: "Fine" Affect: Flat with little affect Diagnoses Schizoaffective disorder, bipolar type. Alcohol use disorder, unspecified. 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 Assessment and Plan Schizoaffective disorder: We'll restart home medications and examine. He is showing signs of polydipsia. Alcohol use disorder: Unlikely to need CIWA. We'll monitor vital signs. Polydipsia: We'll observe and repeat CMP. Disposition The patient will need a admission well likely lasting longer than 2 midnights in order to treat his severe psychosis. Problem List 1. Awful thoughts. 2. Poor self-care. 3. Substance use. Initial Treatment Plan 1. Patient was admitted on a 9.39 legal status. 2. Complete history was obtained. 3. With patients permission, family will be contacted and database will be expanded. 4. Patients medication regimen will be reviewed and changed accordingly. 5. Patient will be provided with protected environment. 6. Patient will be treated with individual, group, and milieu therapies. 7. Patient will receive supportive psych-education. 8. Discharge planning will commence immediately. 9. Outpatient follow-up treatment will be strongly recommended. 10. The initial treatment plan will focus initially on: Estimated Length Of Stay Five days. Time Spent 70 minutes. Vital Signs Vital Signs Date Time Temp Pulse Resp B/P (MAP) Pulse Ox O2 Delivery O2 Flow Rate FiO2 01/16/19 06:10 97.7 118 18 129/85 (100) 01/15/19 20:17 96 Room Air Laboratory Data 24H Labs Laboratory Tests 2 01/15/19 12:39: Nucleated Red Blood Cells % (auto) 0.0, Anion Gap 9, Glomerular Filtration Rate > 60.0, Calcium Level 9.0, Total Bilirubin 0.5, Direct Bilirubin 0.1, Aspartate Amino Transf (AST/SGOT) 14, Alanine Aminotransferase (ALT/SGPT) 24, Alkaline Phosphatase 83, Total Protein 7.3, Albumin 3.7, Albumin/Globulin Ratio 1.03, Thyroid Stimulating Hormone (TSH) 1.730, Salicylates Level < 1.7L, Acetaminophen Level < 2.0L, Ethyl Alcohol Level 0.023H 01/15/19 12:40: Urine Opiates Screen NEGATIVE, Urine Methadone Screen NEGATIVE, Urine Barbiturates Screen NEGATIVE, Urine Phencyclidine Screen NEGATIVE, Urine Amphetamines Screen NEGATIVE, Urine Benzodiazepines Screen NEGATIVE, Urine Cocai ne Metabolite Screen NEGATIVE, Urine Cannabinoids Screen NEGATIVE CBC/BMP Laboratory Tests 01/15/19 12:39 Medications Scheduled Brexpiprazole (Rexulti) 3 Mg Tablet, 3 MG PO DAILY, (Reported) Lurasidone HCl (Latuda) 120 Mg Tablet, 120 MG PO QPM, (Reported) Paliperidone Palmitate (Invega Sustenna) 234 Mg/1.5 Ml Syringe, 234 MG INJ QMONTH, (Reported) Allergies Coded Allergies: No Known Allergies (Unverified , 01/15/19) TINA MINAYA DO Jan 16, 2019 07:57
[2019-01-16] MEDS: LURASIDONE HCL 40 MG TAB (LATUDA) PO SCH (08:30)
--- NOTE | 2019-01-16 13:27 | HPEPDOC ---
General Date of Admission Jan 15, 2019 at 17:45 Date of Service: Jan 16, 2019 Attending Physician: TONY COBB MD Chief Complaint The patient is a 33-year-old male admitted with a reason for visit of Schizoaffective Disorder. Source: Patient Exam Limitations: No limitations Associated Symptoms: Denies Symptoms History of Present Illness Patient is a 33 year old male admitted to Inpatient Mental Health Unit due to deterioration in his mental health. Mr. Singletary was seen by hospitalist group for assessment of his medical needs. Patient denied any medical issues at this time. He reported compliance with all his medications. Nursing staff did not report any medical concerns on this patient's behalf. Home Medications Scheduled Brexpiprazole (Rexulti) 3 Mg Tablet, 3 MG PO DAILY, (Reported) Lurasidone HCl (Latuda) 120 Mg Tablet, 120 MG PO QPM, (Reported) Paliperidone Palmitate (Invega Sustenna) 234 Mg/1.5 Ml Syringe, 234 MG INJ QMONTH, (Reported) Allergies Coded Allergies: No Known Allergies (Unverified , 01/15/19) A-FIB/CHADSVASC A-FIB History Current/History of A-Fib/PAF?: No Review of Systems Constitutional: Denies: Chills, Fever, Night Sweats Eyes: Denies: Pain ENT: Denies: Head Aches, Ear Pain Skin: Denies: Rash, Lesions Pulmonary: Denies: Dyspnea, Cough Cardiovascular: Denies: Chest Pain, Palpitations Gastrointestinal: Denies: Nausea, Vomiting, Abdominal Pain, Diarrhea Genitourinary: Denies: Dysuria, Frequency, Retention Hematologic: Denies: Bruising, Bleeding Excessively Musculoskeletal: Denies: Neck Pain, Back Pain, Joint Pain, Muscle Pain, Spasms Neurological: Denies: Weakness, Numbness Psych: Reports: Mood Normal; Denies: Depression, Memory Issues Physical Examination General Exam: Positive: Alert, Cooperative, No Acute Distress Eye Exam: Positive: Conjunctiva & lids normal ENT Exam: Positive: Atraumatic, Mucous membr. moist/pink, Pharynx Normal Neck Exam: Positive: Supple; Negative: thyromegaly Chest Exam: Positive: Clear to auscultation, Normal air movement Heart Exam: Positive: Rate Normal, Normal S1, Normal S2 Abdomen Exam: Positive: Soft Extremity Exam: Negative: Clubbing, Cyanosis, Edema, Swelling Skin Exam: Positive: Nl turgor and temperature Neuro Exam: Positive: Normal Gait, Normal Speech Psych Exam: Positive: Mood NL Vital Signs Vital Signs Date Time Temp Pulse Resp B/P (MAP) Pulse Ox O2 Delivery O2 Flow Rate FiO2 01/16/19 06:10 97.7 118 18 129/85 (100) 01/15/19 20:17 96 Room Air Laboratory Data Labs 24H Laboratory Tests 2 01/15/19 12:39: Nucleated Red Blood Cells % (auto) 0.0, Anion Gap 9, Glomerular Filtration Rate > 60.0, Calcium Level 9.0, Total Bilirubin 0.5, Direct Bilirubin 0.1, Aspartate Amino Transf (AST/SGOT) 14, Alanine Aminotransferase (ALT/SGPT) 24, Alkaline Cher sphatase 83, Total Protein 7.3, Albumin 3.7, Albumin/Globulin Ratio 1.03, Thyroid Stimulating Hormone (TSH) 1.730, Salicylates Level < 1.7L, Acetaminophen Level < 2.0L, Ethyl Alcohol Level 0.023H 01/15/19 12:40: Urine Opiates Screen NEGATIVE, Urine Methadone Screen NEGATIVE, Urine Barbiturates Screen NEGATIVE, Urine Phencyclidine Screen NEGATIVE, Urine Amphetamines Screen NEGATIVE, Urine Benzodiazepines Screen NEGATIVE, Urine Cocaine Metabolite Screen NEGATIVE, Urine Cannabinoids Screen NEGATIVE CBC/BMP Laboratory Tests 01/15/19 12:39 Assessment/Plan Mr. Singletary will be managed per Psychiatry ([facility]). Hospitalist will follow this patient medically while he is in hospital. Plan / VTE VTE Prophylaxis Ordered?: No Plan Diet: Continue Current Activity: Continue Current YENY WILLIAM PA-C Jan 16, 2019 10:16
--- NOTE | 2019-01-16 16:33 | IPNPDOC ---
Text Note Date of Service The patient was seen on 01/16/19. NOTE Medicine will sign off at this time. VS,Fishbone, I+O VS, Fishbone, I+O Vital Signs Date Time Temp Pulse Resp B/P (MAP) Pulse Ox O2 Delivery O2 Flow Rate FiO2 01/16/19 06:10 97.7 118 18 129/85 (100) 01/15/19 20:17 96 Room Air YENY WILLIAM PA-C Jan 16, 2019 16:33
[2019-01-16 18:00] VITALS: BP 140/77
[2019-01-16] MEDS: traZODone 50 MG TAB PO PRN (21:35)
[2019-01-16] MEDS: BREXPIPRAZOLE 0.5MG TABLET (REXULTI) PO SCH (21:38)
[2019-01-17 05:57] VITALS: BP 132/82
[2019-01-17 07:52] LABS: ALBUMIN 4.1 GM/DL (3.2-5.2); ALT/SGPT 28 U/L (12-78); BILIRUBIN,TOTAL 0.5 MG/DL (0.2-1.0); BLOOD UREA NITROGEN 8 MG/DL (7-18); CALCIUM LEVEL 9.1 MG/DL (8.5-10.1); CARBON DIOXIDE LEVEL 28 MEQ/L (21-32); CHLORIDE LEVEL 98 MEQ/L (98-107); CREATININE FOR GFR 0.97 MG/DL (0.70-1.30); GLOMERULAR FILTRATION RATE > 60.0 (>60); GLUCOSE, FASTING 95 MG/DL (70-100); POTASSIUM SERUM 4.4 MEQ/L (3.5-5.1); SODIUM LEVEL 132 MEQ/L (136-145); TOTAL PROTEIN 7.5 GM/DL (6.4-8.2)
[2019-01-17] MEDS: LURASIDONE HCL 40 MG TAB (LATUDA) PO SCH (08:58)
--- NOTE | 2019-01-17 11:32 | MHIPNPDOC ---
[facility] Progress Note Progress Note Inpatient Progress Note Mike Singletary MRN: N/A Date of : N/A Date of Service: 01/17/2019 History of Present Illness Patient a 33-year-old man with a history of schizoaffective disorder is brought in by his outpatient psychiatrist due to decreasing function and increasing paranoia. He lives at home with his mother and father and has previously been here and has been non-compliant with his home medications. Reportedly after he's become non-compliant with his home medications of brexpiprazole and Latuda as well as an injectable anti-psychotic, he has become more bizarre, paranoid and unable to care for himself. A pick-up order was called and he was brought in for assessment. He was responding to internal stimuli and unable to care for himself and he was admitted out of an abundance of caution. When I attempted to meet with the patient, the patient reported that he was unsure of why he was admitted; however, he was responding to internal stimuli, bizarre and unable to describe any information to me in any meaningful sense. He was confused and disorientated for the most part. Review of the psychosocial in formation from previous charts was extracted and provided below and updated as appropriate. Interval History The patient was attempted to be met with today. He was so bizarre and paranoid, unable to relay much history. He has been compliant at times, not going to groups, isolative, but has had no major behavioral problems. He reports he is "fine" but still appears quite psychotic. The patient has been engaging in more polydipsia and has dropped his sodium to 132. Internal medicine is aware and following. Review Of Systems Denies any side effects from his medications, but grossly denies all symptoms, unclear if an actual symptomatic. Psychotherapy None on this visit. Vital Signs Reviewed. Mental Status Examination General: Poor hygiene Speech: Sparse Thought processes: Tangential MSK: Smooth and coordinated gait, no signs of tremors or involuntary orofacial movements Thought content: Paranoid Abstract reasoning, and computation: Impaired Description of associations: Impaired Description of abnormal or psychotic thoughts: Denies any suicidal or homicidal ideation. Denies any auditory or visual hallucinations. Does not appear to be responding to internal stimuli. Does not appear to be endorsing any bizarre or paranoid ideation. Judgment: Poor Insight: Poor Orientation: Alert and orientated 3 Cognition: Grossly normal Recent and remote memory: Intact Attention span and concentration: Intact Fund of knowledge: Adequate Mood: "Fine" Affect: Flat with little affect Diagnoses Schizoaffective disorder, bipolar type. Alcohol use disorder, unspecified. 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 Assessment and Plan Schizoaffective disorder: Discontinue brexpiprazole and Latuda. We will start clozapine 12.5 mg nightly. CBC to be done as has evidence useful in treatment resistant schizoaffective and polydipsia. Discussed the risks and benefits as well as potential side effects with patient as far as he is able to understand. Alcohol use disorder: Unlikely to need CIWA. We'll monitor vital signs. Polydipsia: We will start clozapine, IM is currently following in order to determine if further workup is needed. Disposition Patient will need a further inpatient admission and treat his severely impairing psychosis that makes him unable to care for himself. Time Spent 15 minutes. Sunday Vital Signs Vital Signs Date Time Temp Pulse Resp B/P (MAP) Pulse Ox O2 Delivery O2 Flow Rate FiO2 01/17/19 05:57 98.4 93 18 132/82 (99) 01/15/19 20:17 96 Room Air Laboratory Data 24H Labs Laboratory Tests 2 01/17/19 06:24: Anion Gap 6L, Glomerular Filtration Rate > 60.0, Calcium Level 9.1, Total Bilirubin 0.5, Aspartate Amino Transf (AST/SGOT) 16, Alanine Aminotransferase (ALT/SGPT) 28, Alkaline Phosphatase 92, Total Protein 7.5, Albumin 4.1, Albumin/ Globulin Ratio 1.21 CBC/BMP Laboratory Tests 01/17/19 06:24 Current Medications Current Medications Medications (Trade) Dose Ordered Sig/Julian Route PRN Reason Start Time Stop Time Status Last Admin Dose Admin Acetaminophen (Tylenol Tab) 650 mg Q6HP PRN PO HEADACHE or DISCOMFORT 01/15/19 17:45 Al Hydrox/Mg Hydrox/Simethicone (Mylanta) 30 ml Q4HP PRN PO HEARTBURN/INDIGESTION 01/15/19 17:45 Brexpiprazole (Rexulti) 1 mg QHS PO 01/15/19 21:00 01/16/19 21:38 Home Med (Med Rec Complete!) ASDIRECTED XX 01/15/19 14:30 01/15/19 14:40 DC Lorazepam (Ativan) 1 mg Q4HP PRN PO ANXIETY 01/15/19 17:45 01/15/19 23:56 Lorazepam (Ativan) 2 mg STAT STAT PO 01/15/19 15:46 01/15/19 15:47 DC 01/15/19 16:10 Lurasidone HCl (Latuda) 40 mg DAILY@08 PO 01/16/19 08:00 01/17/19 08:58 Magnesium Hydroxide (Milk Of Magnesia) 30 ml DAILYPRN PRN PO CONSTIPATION 01/15/19 17:45 Trazodone HCl (Desyrel) 50 mg QHSP PRN PO INSOMNIA 01/15/19 17:45 01/16/19 21:35 Allergies Coded Allergies: No Known Allergies (Unverified , 01/15/19) TINA MINAYA DO Jan 17, 2019 11:32
[2019-01-17 14:17] LABS: BASO # 0.1 10^3/uL (0.0-0.2); BASO % 0.5 % (0.0-1.0); EOS # 0.4 10^3/uL (0.0-0.5); EOS % 4.3 % (0.0-3.0); HEMATOCRIT 37.8 % (42.0-52.0); LYMPH # 1.9 10^3/uL (1.5-5.0); LYMPH % 19.4 % (24.0-44.0); MEAN CORPUSCULAR HEMOGLOBIN 29.7 pg (27.0-33.0); MEAN CORPUSCULAR HGB CONC 34.4 g/dl (32.0-36.5); MEAN CORPUSCULAR VOLUME 86.5 fl (80.0-96.0); MONO # 0.9 10^3/uL (0.0-0.8); MONO % 9.8 % (0.0-5.0); NEUTROPHILS # 6.3 10^3/uL (1.5-8.5); NEUTROPHILS % 65.6 % (36.0-66.0); PLATELET COUNT, AUTOMATED 293 10^3/uL (150-450); RED BLOOD COUNT 4.37 10^6/uL (4.30-6.10); WHITE BLOOD COUNT 9.6 10^3/uL (4.0-10.0)
[2019-01-17 15:56] VITALS: BP 150/70
[2019-01-17 17:12] LABS: URIC ACID 4.7 MG/DL (3.5-7.2)
[2019-01-17 18:30] LABS: SODIUM,RANDOM URINE 22 MEQ/L
[2019-01-17 18:33] LABS: OSMOLALITY URINE 79 MOSM/KG (500-800)
[2019-01-17] MEDS: cloZAPine 25 MG TAB (S0136) PO SCH (21:29)
[2019-01-18 06:48] VITALS: BP 145/90
--- NOTE | 2019-01-18 09:27 | MHIPNPDOC ---
[facility] Progress Note Progress Note DATE OF SERVICE: 01/18/19 HISTORY: Per Dr. Foster: "Patient a 33-year-old man with a history of schizoaffective disorder is brought in by his outpatient psychiatrist due to decreasing function and increasing paranoia. He lives at home with his mother and father and has previously been here and has been non-compliant with his home medications. Reportedly after he's become non-compliant with his home medications of brexpiprazole and Latuda as well as an injectable anti-psychotic, he has become more bizarre, paranoid and unable to care for himself. A pick-up order was called and he was brought in for assessment. He was responding to internal stimuli and unable to care for himself and he was admitted out of an abundance of caution. When I attempted to meet with the patient, the patient reported that he was unsure of why he was admitted; however, he was responding to internal stimuli, bizarre and unable to describe any information to me in any meaningful sense. He was confused and disorientated for the most part. Review of the psychosocial information from previous charts was extracted and provided below and updated as appropriate." VITAL SIGNS: See below. NEW TEST RESULTS: CMP wnl CURRENT MEDICATIONS: See below. MENTAL STATUS EXAMINATION: General: Poor hygiene, guarded Speech: Sparse Thought processes: more linear and logical but mostly answered in yes or no so very hard to really tell if tangentiality improved MSK: Smooth and coordinated gait, no signs of tremors or involuntary orofacial movements Thought content: Paranoid Abstract reasoning, and computation: Impaired Description of associations: Impaired Description of abnormal or psychotic thoughts: Denies any suicidal or homicidal ideation. Denies any auditory or visual hallucinations. Does not appear to be responding to internal stimuli. Does not appear to be endorsing any bizarre or paranoid ideation. Judgment: Poor Insight: Poor Orientation: Alert and orientated 3 Cognition: Grossly normal Recent and remote memory: Intact Attention span and concentration: Intact Fund of knowledge: Adequate Mood: "Fine" Affect: Flat with little affect DIAGNOSES: Schizoaffective disorder: We'll restart home medications and examine. He is showing signs of polydipsia. Alcohol use disorder: Unlikely to need CIWA. We'll monitor vital signs. Polydipsia ASSESSMENT:Pt seen and states that his mood is "fine" otherwise answered questions in yes/no responses mostly and came across as guarded slightly. States he slept well last night. Feels he is tolerating his medications and they're beneficial. He is attending groups and finding them "ok". He denies SI/HI. Appears paranoid but slightly improved. Pt feels safe here. MANAGEMENT PLAN:Per Dr. Foster TIME SPENT: 30 minutes. Vital Signs Vital Signs Date Time Temp Pulse Resp B/P (MAP) Pulse Ox O2 Delivery O2 Flow Rate FiO2 01/18/19 06:48 97.0 88 16 145/90 (108) 01/15/19 20:17 96 Room Air Laboratory Data 24H Labs Laboratory Tests 2 01/17/19 13:43: Immature Granulocyte % (Auto) 0.4, Neutrophils (%) (Auto) 65.6, Lymphocytes (%) (Auto) 19.4L, Monocytes (%) (Auto) 9.8H, Eosinophils (%) (Auto) 4.3H, Basophils (%) (Auto) 0.5, Neutrophils # (Auto) 6.3, Lymphocytes # (Auto) 1.9, Monocytes # (Auto) 0.9H, Eosinophils # (Auto) 0.4, Basophils # (Auto) 0.1, Nucleated Red Blood Cells % (auto) 0.0 01/17/19 18:16: Urine Random Osmolality 79L, Urine Random Sodium 22 CBC/BMP Laboratory Tests 01/17/19 13:43 Current Medications Current Medications Medications (Trade) Dose Ordered Sig/Julian Route PRN Reason Start Time Stop Time Status Last Admin Dose Admin Acetaminophen (Tylenol Tab) 650 mg Q6HP PRN PO HEADACHE or DISCOMFORT 01/15/19 17:45 Al Hydrox/Mg Hydrox/Simethicone (Mylanta) 30 ml Q4HP PRN PO HEARTBURN/INDIGESTION 01/15/19 17:45 Brexpiprazole (Rexulti) 1 mg QHS PO 01/15/19 21:00 01/17/19 13:26 DC 01/16/19 21:38 Clozapine (Clozaril) 12.5 mg QHS PO 01/17/19 21:00 01/17/19 21:29 Home Med (Med Rec Complete!) ASDIRECTED XX 01/15/19 14:30 01/15/19 14:40 DC Lorazepam (Ativan) 1 mg Q4HP PRN PO ANXIETY 01/15/19 17:45 01/15/19 23:56 Lorazepam (Ativan) 2 mg STAT STAT PO 01/15/19 15:46 01/15/19 15:47 DC 01/15/19 16:10 Lurasidone HCl (Latuda) 40 mg DAILY@08 PO 01/16/19 08:00 01/17/19 13:26 DC 01/17/19 08:58 Magnesium Hydroxide (Milk Of Magnesia) 30 ml DAILYPRN PRN PO CONSTIPATION 01/15/19 17:45 Trazodone HCl (Desyrel) 50 mg QHSP PRN PO INSOMNIA 01/15/19 17:45 01/16/19 21:35 Allergies Coded Allergies: No Known Allergies (Unverified , 01/15/19) NICOLE FRAZIER DO Jan 18, 2019 9:27 am
[2019-01-18 15:31] VITALS: BP 130/60
[2019-01-18] MEDS: cloZAPine 25 MG TAB (S0136) PO SCH (21:36)
[2019-01-19 06:04] VITALS: BP 112/65
--- NOTE | 2019-01-19 09:13 | MHIPNPDOC ---
[facility] Progress Note Progress Note DATE OF SERVICE: 01/19/19 HISTORY: Per Dr. Foster: "Patient a 33-year-old man with a history of schizoaffective disorder is brought in by his outpatient psychiatrist due to decreasing function and increasing paranoia. He lives at home with his mother and father and has previously been here and has been non-compliant with his home medications. Reportedly after he's become non-compliant with his home medications of brexpiprazole and Latuda as well as an injectable anti-psychotic, he has become more bizarre, paranoid and unable to care for himself. A pick-up order was called and he was brought in for assessment. He was responding to internal stimuli and unable to care for himself and he was admitted out of an abundance of caution. When I attempted to meet with the patient, the patient reported that he was unsure of why he was admitted; however, he was responding to internal stimuli, bizarre and unable to describe any information to me in any meaningful sense. He was confused and disorientated for the most part. Review of the psychosocial information from previous charts was extracted and provided below and updated as appropriate." VITAL SIGNS: See below. NEW TEST RESULTS: CMP wnl CURRENT MEDICATIONS: See below. MENTAL STATUS EXAMINATION: General: Poor hygiene, guarded Speech: Sparse Thought processes: more linear and logical but mostly answered in yes or no so very hard to really tell if tangentiality improved MSK: Smooth and coordinated gait, no signs of tremors or involuntary orofacial movements Thought content: Paranoid Abstract reasoning, and computation: Impaired Description of associations: Impaired Description of abnormal or psychotic thoughts: Denies any suicidal or homicidal ideation. Denies any auditory or visual hallucinations. Does not appear to be responding to internal stimuli. Does not appear to be endorsing any bizarre or paranoid ideation. Judgment: Poor Insight: Poor Orientation: Alert and orientated 3 Cognition: Grossly normal Recent and remote memory: Intact Attention span and concentration: Intact Fund of knowledge: Adequate Mood: "Fine" Affect: Flat with little affect DIAGNOSES: Schizoaffective disorder: We'll restart home medications and examine. He is showing signs of polydipsia. Alcohol use disorder: Unlikely to need CIWA. We'll monitor vital signs. Polydipsia ASSESSMENT:Pt seen pacing aimlessly in the milieu possibly responding to internal stimuli and preoccupied with his thoughts. States he's fine then continued to pace preoccupied in thought again and no longer paying attention to myself. Answers questions in yes/no responses mostly and come across as guarded slightly. Slept well last night. Feels he is tolerating his medications and they're beneficial. He is attending groups and finding them "ok". He denies SI/HI. Appears paranoid and responding to internal stimuli but slightly i mproved. Pt feels safe here. MANAGEMENT PLAN:Per Dr. Foster TIME SPENT: 30 minutes. Vital Signs Vital Signs Date Time Temp Pulse Resp B/P (MAP) Pulse Ox O2 Delivery O2 Flow Rate FiO2 01/19/19 06:04 98.4 110 18 112/65 (81) Room Air 01/15/19 20:17 96 Current Medications Current Medications Medications (Trade) Dose Ordered Sig/Julian Route PRN Reason Start Time Stop Time Status Last Admin Dose Admin Acetaminophen (Tylenol Tab) 650 mg Q6HP PRN PO HEADACHE or DISCOMFORT 01/15/19 17:45 Al Hydrox/Mg Hydrox/Simethicone (Mylanta) 30 ml Q4HP PRN PO HEARTBURN/INDIGESTION 01/15/19 17:45 Brexpiprazole (Rexulti) 1 mg QHS PO 01/15/19 21:00 01/17/19 13:26 DC 01/16/19 21:38 Clozapine (Clozaril) 12.5 mg QHS PO 01/17/19 21:00 01/18/19 21:36 Home Med (Med Rec Complete!) ASDIRECTED XX 01/15/19 14:30 01/15/19 14:40 DC Lorazepam (Ativan) 1 mg Q4HP PRN PO ANXIETY 01/15/19 17:45 01/15/19 23:56 Lorazepam (Ativan) 2 mg STAT STAT PO 01/15/19 15:46 01/15/19 15:47 DC 01/15/19 16:10 Lurasidone HCl (Latuda) 40 mg DAILY@08 PO 01/16/19 08:00 01/17/19 13:26 DC 01/17/19 08:58 Magnesium Hydroxide (Milk Of Magnesia) 30 ml DAILYPRN PRN PO CONSTIPATION 01/15/19 17:45 Trazodone HCl (Desyrel) 50 mg QHSP PRN PO INSOMNIA 01/15/19 17:45 01/16/19 21:35 Allergies Coded Allergies: No Known Allergies (Unverified , 01/15/19) NICOLE FRAZIER DO Jan 19, 2019 09:13
[2019-01-19 15:34] VITALS: BP 145/86
--- NOTE | 2019-01-20 08:42 | REP ---
CT brain: 01/19/2019. Indication: Head trauma. Comparison: 03/02/2009. Technique: Unenhanced axial CT images of the brain were obtained from skull base to vertex. Findings: There is no acute intracranial hemorrhage, acute cortical infarction, mass effect, hydrocephalus or acute calvarial fracture. Impression: No acute intracranial process. Electronically Signed by Trino Monroe DO 01/20/2019 08:34 A
--- NOTE | 2019-01-20 10:18 | MHDSPDOC ---
[facility] Discharge Summary Discharge Summary DATE OF ADMISSION: Jan 15, 2019 at 17:45 DATE OF DISCHARGE: Jan 19, 2019 at 21:15 Discharge Mike Singletary MRN: N/[id number] Date of : N/A Date of Service: 01/20/2019 Diagnoses Schizoaffective disorder, bipolar type. Alcohol use disorder, unspecified. 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 History of Present Illness Patient a 33-year-old man with a history of schizoaffective disorder is brought in by his outpatient psychiatrist due to decreasing function and increasing paranoia. He lives at home with his mother and father and has previously been here and has been non-compliant with his home medications. Reportedly after he's become non-compliant with his home medications of brexpiprazole and Latuda as well as an injectable anti-psychotic, he has become more bizarre, paranoid and unable to care for himself. A pick-up order was called and he was brought in for assessment. He was responding to internal stimuli and unable to care for himself and he was admitted out of an abundance of caution. When I attempted to meet with the patient, the patient reported that he was unsure of why he was admitted; however, he was responding to internal stimuli, bizarre and unable to describe any information to me in any meaningful sense. He was confused and disorientated for the most part. Review of the psychosocial information from previous charts was extracted and provided below and updated as appropriate. Consultants Involved Hospitalist/PCP screening Treatment and Progress On The Unit The patient was admitted to the inpatient unit after observation on a low-dose of his home medications. It became clear that they were ineffective for his psychosis. He was bizarre and paranoid. He was taken off of is Latuda and Rexulti and replaced with chondral 12.5 mg nightly. The patient did demonstrate from the time he had arrived on our unit, polydipsia likely psychogenic in origin with a mildly depressed sodium level. The hospitalists were consulted where they were monitoring his sodium level. Over the weekend, he had been continued over his clozapine, but had due to his psychogenic polydipsia, had dropped to a further level of hyponatremia, where he had an unobserved fall and was admitted to the ICU for further treatment of his hyponatremia. Discharge Assessment 33-year-old man with a history of schizoaffective disorder, tried on Clozaril. Due to his significant psychogenic polydipsia, he is discharged overnight to the medical floor, where he will be treated until he is ready for disposition. Mental Status Examination Please refer to my last mental status exam on Sunday, the , as the patient was discharged overnight. Follow Up The patient will need further psychiatric followup. Discontinue Clozaril at this time until his hyponatremia resolves, consider fluid restriction. Time Spent The amount of time spent in the coordination of care for this patient was approximately 60 minutes. Sunday Vital Signs/I&Os Vital Signs Date Time Temp Pulse Resp B/P (MAP) Pulse Ox O2 Delivery O2 Flow Rate FiO2 01/19/19 15:34 98.0 77 18 145/86 (105) 01/19/19 06:04 Room Air 01/15/19 20:17 96 Laboratory Data Labs 24H Laboratory Tests 2 01/19/19 21:14: Bedside Glucose (Misc Panel) 146H Medications Scheduled Brexpiprazole (Rexulti) 3 Mg Tablet, 3 MG PO DAILY, (Reported) Lurasidone HCl (Latuda) 120 Mg Tablet, 120 MG PO QPM, (Reported) Paliperidone Palmitate (Invega Sustenna) 234 Mg/1.5 Ml Syringe, 234 MG INJ QMONTH, (Reported) Allergies Coded Allergies: No Known Allergies (Unverified , 01/15/19) TINA MINAYA DO Jan 20, 2019 10:18
== END 2019-01-19 21:15 | disposition short-term general hospital (02) | DRG 750 ==
LOC: M ED 12:20 → M ED INP 17:45 → M PSY 20:01
PROVIDERS: ADMIT Psychiatry & Neurology Psychiatry; ATTEND Psychiatry & Neurology Addiction Medicine
DX: F25.0 Schizoaffective disorder, bipolar type (principal); F10.10 Alcohol abuse, uncomplicated; R63.1 Polydipsia

== ENCOUNTER 2019-01-19 21:17 | Inpatient (IN) | payer MEDICAID ==
[~2019-01-19] VITALS: Ht 188 cm; Wt 112.5 kg
[~2019-01-19 21:17] MED LIST changes: +INVE234I INJ; +LATU120T PO; +REXU1TAB5 PO
[2019-01-19] MEDS ORDERED: LORazepam 2 MG/ML VIAL (J2060) IM STA (21:25)
[2019-01-19] MEDS ORDERED: LORazepam 2 MG/ML VIAL (J2060) As Ordered ONE ×2 (21:30→21:34)
[2019-01-19] MEDS ORDERED: LORazepam 2 MG/ML VIAL (J2060) IM PRN (21:30)
[2019-01-19] MEDS ORDERED: LORazepam 2 MG/ML VIAL (J2060) IV STA (21:33)
[2019-01-19] MEDS ORDERED: diazePAM 10 MG/2 ML INJ (J3360) As Ordered ONE (21:42)
[2019-01-19] MEDS ORDERED: ONDANSETRON 4MG/2ML VIAL (J2405) IV PRN (21:45)
[2019-01-19] MEDS ORDERED: ONDANSETRON 4MG/2ML VIAL (J2405) As Ordered ONE (21:45)
[2019-01-19] MEDS ORDERED: diazePAM 10 MG/2 ML INJ (J3360) IV ONE (22:00)
[2019-01-19 22:10] VITALS: BP 142/63
[2019-01-19] MEDS ORDERED: LR 1,000 ML IV SCH (22:15)
[2019-01-19 22:21] LABS: BASO % 0.3 % (0.0-1.0); EOS # 0.1 10^3/uL (0.0-0.5); EOS % 1.2 % (0.0-3.0); HEMATOCRIT 33.9 % (42.0-52.0); HEMOGLOBIN 11.7 g/dl (13.5-17.5); LYMPH # 1.5 10^3/uL (1.5-5.0); MEAN CORPUSCULAR HEMOGLOBIN 29.3 pg (27.0-33.0); MEAN CORPUSCULAR HGB CONC 34.5 g/dl (32.0-36.5); MONO % 9.1 % (0.0-5.0); NEUTROPHILS # 8.6 10^3/uL (1.5-8.5); NEUTROPHILS % 75.3 % (36.0-66.0); PLATELET COUNT, AUTOMATED 278 10^3/uL (150-450); RED BLOOD COUNT 3.99 10^6/uL (4.30-6.10); WHITE BLOOD COUNT 11.4 10^3/uL (4.0-10.0)
[2019-01-19 22:32] LABS: ALBUMIN 3.7 GM/DL (3.2-5.2); ALT/SGPT 26 U/L (12-78); BILIRUBIN,TOTAL 0.9 MG/DL (0.2-1.0); BLOOD UREA NITROGEN 7 MG/DL (7-18); CALCIUM LEVEL 8.1 MG/DL (8.5-10.1); CARBON DIOXIDE LEVEL 21 MEQ/L (21-32); CHLORIDE LEVEL 79 MEQ/L (98-107); GLOMERULAR FILTRATION RATE > 60.0 (>60); GLUCOSE, FASTING 171 MG/DL (70-100); POTASSIUM SERUM 3.7 MEQ/L (3.5-5.1); SODIUM LEVEL 114 MEQ/L (136-145); TOTAL PROTEIN 6.7 GM/DL (6.4-8.2)
[2019-01-19] MEDS ORDERED: SODIUM CHLORIDE 3% 250 ML IV SCH (23:30)
[2019-01-20] VITALS (8 sets, daily range): BP systolic 109–132; BP diastolic 51–64
[2019-01-20] MEDS ORDERED: SODIUM CHLORIDE 3% 500 ML IV SCH
[2019-01-20 01:29] LABS: SODIUM,RANDOM URINE 24 MEQ/L
[2019-01-20 01:42] LABS: OSMOLALITY URINE 184 MOSM/KG (500-800)
[2019-01-20 02:26] LABS: OSMOLALITY SERUM 237 MOSM/KG (275-295)
[2019-01-20 02:39] LABS: BLOOD UREA NITROGEN 6 MG/DL (7-18); CALCIUM LEVEL 7.6 MG/DL (8.5-10.1); CARBON DIOXIDE LEVEL 25 MEQ/L (21-32); CHLORIDE LEVEL 86 MEQ/L (98-107); CREATININE FOR GFR 0.57 MG/DL (0.70-1.30); GLOMERULAR FILTRATION RATE > 60.0 (>60); GLUCOSE, FASTING 108 MG/DL (70-100); POTASSIUM SERUM 3.5 MEQ/L (3.5-5.1); SODIUM LEVEL 120 MEQ/L (136-145)
--- NOTE | 2019-01-20 03:09 | HPEPDOC ---
General Date of Admission Jan 19, 2019 at 21:20 Date of Service: Jan 19, 2019 Attending Physician: SURAJ ESCALANTE MD Chief Complaint The patient is a 33-year-old male admitted with a reason for visit of Ams, Fall. Source: RN/, Old records Exam Limitations: Clinical conditions, Physical impairment, Other (AMS) Timing/Duration: This evening Severity: Severe Associated Symptoms: Unobtainable, Seizure (appears post ictal), Weakness, Mechanical fall, Other (pale skin, AMS) History of Present Illness This is 33-year-old male, in inpatient mental health unit in his room found unresponsive on the floor and what appears to be new epileptic like seizure event. Nurse was assessing patient as he was laying on the floor, turned to his right side to help maintain his airway. Mr. Singletary was unresponsive when his name being called and to firm sternum friction rub, pupils was dilated bilaterally with saliva dribbling from his mouth, brown in color. His fall in his room was unwitnessed and per his nurse floor rounds was just completed and patient had access to his evening snacks. Initially he was not oriented, and had difficulties standing up. In assessing patient during rapid response it appears to have food substances in his mouth before he lost consciousness and found on the floor in his room in Inpatient Mental Health Unit. His finger stick blood glucose is 146 on finger stick,blood pressure 121/77, respiration 10, jim phoretic. He was transported to radiology via wheelchair for stat CT head without IV contrast and chest x-ray. There in CT he was moving constantly to the point he was no longer remaining on CT scanning table and was medicated with Ativan and Valium, supplemental oxygen 2L per N/C. Before patient was medicated he had 2 episodes of emesis. He has a medical history of schizoaffective disorder bipolar type for which he was admitted inpatient with deterioration in his mental health on 01/15/2019 as he was brought into [facility] by his Outpatient Psychiatrist Dr. Villalta for his increased paranoia, and decrease function. He also has PMH of Chronic back pain, Insomnia and ETOH use with binge drinking, excessive drinking of water (polydipsia, psychogenic), psychoses, no illicit drug use found in his history. He is currently taking Invega Sustenna, Latuda and Rexulti injectable medication while inpatient. In reviewing Mr. Singletary medical record there is no documented diagnosis and or history of him having epileptic seizures nor taken medications related to the neurological condition, atrial fibrillation, congestive heart failure, essential hypertension and or diabetes. Home Medications No Active Prescriptions or Reported Meds Allergies Coded Allergies: No Known Allergies (Unverified , 01/15/19) Past Medical History Medical History See HPI Surgical History Mass removed from his right breast in 2008. Social History * Smoker: non-smoker Alcohol: occationally Drugs: prescription drugs Psychosocial History: Schizophrenia (Schizoeffective disorder) A-FIB/CHADSVASC A-FIB History Current/History of A-Fib/PAF?: No Review of Systems Constitutional: Reports: Other (AMS) Physical Examination General Exam: Positive: Severe Distress Eye Exam: Positive: Other Eye Symptoms (Pupils dilated 5mm bilateral) ENT Exam: Positive: Other ENT (food in mouth, drooling light brown secretions (possibly from recent consumption)) Neck Exam: Positive: Supple Chest Exam: Positive: Diminished Heart Exam: Positive: Normal S1, Normal S2 Skin Exam: Positive: Nl turgor and temperature, Other skin issue (Palor-white facially) Neuro Exam: Positive: Other (combative, AMS) Psych Exam: Positive: Other (AMS, unwittnessed fall) Vital Signs Vital Signs Date Time Temp Pulse Resp B/P (MAP) Pulse Ox O2 Delivery O2 Flow Rate FiO2 01/20/19 01:00 79 20 132/64 (89) 98 Nasal Cannula 2.0 01/20/19 00:00 68 20 120/58 (80) 98 Nasal Cannula 2.0 01/19/19 22:10 97.9 69 18 142/63 (90) 89 Room Air 01/19/19 22:00 2.0 Laboratory Tests 01/19/19 21:56: White Blood Count 11.4H, Red Blood Count 3.99L, Hemoglobin 11.7L, Hematocrit 33.9L, Mean Corpuscular Volume 85.0, Mean Corpuscular Hemoglobin 29.3, Mean Corpuscular Hemoglobin Concent 34.5, Red Cell Distribution Width 11.7, Platelet Count 278, Immature Granulocyte % (Auto) 1.1, Neutrophils (%) (Auto) 75.3H, Lymphocytes (%) (Auto) 13.0L, Monocytes (%) (Auto) 9.1H, Eosinophils (%) (Auto) 1.2, Basophils (%) (Auto) 0.3, Neutrophils # (Auto) 8.6H, Lymphocytes # (Auto) 1.5, Monocytes # (Auto) 1.0H, Eosinophils # (Auto) 0.1, Basophils # (Auto) 0.0, Nucleated Red Blood Cells % (auto) 0.0, Sodium Level 114#*L, Potassium Level 3.7, Chloride Level 79L, Carbon Dioxide Level 21, Anion Gap 14, Blood Urea Nitrogen 7, Creatinine 0.90, Glomerular Filtration Rate > 60.0, Fasting Glucose 171H, Lactic Acid Level 5.7*H, Calcium Level 8.1L, Total Bilirubin 0.9#, Aspartate Amino Transf (AST/SGOT) 22, Alanine Aminotransferase (ALT/SGPT) 26, Alkaline Phosphatase 67, Total Protein 6.7, Albumin 3.7, Albumin/Globulin Ratio 1.23, Prolactin [Pending] 01/19/19 22:33: Blood Opiate Screen [Pending], Oxycodone Screen [Pending], Blood Barbiturates Screen [Pending], Blood Phencyclidine Screen [Pending], Blood Amphetamines Screen [Pending], Blood Benzodiazepines Screen [Pending], Blood Cocaine/Metabolite Screen [Pending], Blood Cannabinoids Screen [Pending] 01/20/19 00:59: Urine Random Osmolality 184L, Urine Random Sodium 24 01/20/19 01:58: Sodium Level 120#L, Potassium Level 3.5, Chloride Level 86L, Carbon Dioxide Level 25, Anion Gap 9, Blood Urea Nitrogen 6L, Creatinine 0.57L, Glomerular Filtration Rate > 60.0, Fasting Glucose 108H, Calcium Level 7.6L, Osmolality 237L Current Medications Medications (Trade) Dose Ordered Sig/Julian Route PRN Reason Start Time Stop Time Status Last Admin Dose Admin Lactated Ringer's 1,000 ml @ 100 mls/hr Q10H IV 01/19/19 22:15 01/19/19 22:51 100 MLS/HR RAD Interpretation STUDY: Rad Actions: Films Reviewed Problems (1) AMS (altered mental status) Status: Acute Response to Treatment: Uncontrolled Discussed With: Nurse, Family with Pt Consent Problem Specific Plan: Monitor Clinically, Repeat Labs Problem Text: 33-year-old male, in inpatient mental health unit in his room found unresponsive on the floor and what appears to be new epileptic like seizure event. Nurse was assessing patient as he was laying on the floor, turned to his right side to help maintain his airway. Mr. Singletary was unresponsive to his name being called, sternum friction rub, and had saliva drooling from his mouth, brown in color. Once patient appeared to be post-ictal, he was not oriented, combative and attempted to stand but was unable to due to weakness in his legs. Altered mental status (possible seizure due to hyponatremia) with unwitnessed fallacute Plan Admit to ICU with continuous telemetry and pulse oximetry. Patient discontinued from inpatient mental health services Stat CT head without IV contrast and checks x-ray, stat AP lateral Check labs:CBC with Different, CMP, lactic acid, prolactin, EEG Family notified Fall precaution. Seizure caution Aspiration precaution nothing by mouth IV fluids LR at 100 mL/h. Replace electrolytes as needed Hyponatremia-Acute Nephrology consult. Due to moderatesevere hyponatremia, 114 on admission patient sodium was 132 on 01/17/2019. Nephrology recommends 3%. Sodium infusion and 50 mils per hour and recheck sodium level, serum urine osmolarity, serum sodium and potassium Schizoaffective disorder.Chronic Hold Latuda and Rexulti until patient is conscious and no longer aspiration risk Consult for management of current mental health/behavioral health Anxietychronic Continue In Patient Mental Health Unit plan Prognosis: Fair, Critical Care time spent with patient: Total time spent with patient from Max Cart to ICU to Stabilization: 2114 to 9: 2 hours and 55 min in totality direct patient care. DVT prophylaxis: Heparin 5000 IUs subcutaneous 3 times a day Discharge: Pending Plan / VTE VTE Prophylaxis Ordered?: Yes VTE Exclusion Mechanical Proph: N/A:VTE Prophy Ordered VTE Exclusion Pharmacological: N/A:VTE Prophy Ordered Plan Plan ICU admission from [facility] IVF: Initiate Diet: Make NPO Activity: Bedrest Medications: Replete Electrolytes IV Respiratory: Wean Oxygen Diagnostics: Check Labs, Repeat Labs in AM, Xrays (Chest), CT, EKG Anticipated Discharge: Psych (inpatient to resume treatment) NIKOLAS WILLIS Jan 19, 2019 21:46 SURAJ ESCALANTE MD Jan 25, 2019 03:07
[2019-01-20 03:19] LABS: OSMOLALITY URINE 151 MOSM/KG (500-800)
[2019-01-20 03:35] LABS: SODIUM,RANDOM URINE 21 MEQ/L
[2019-01-20 04:19] LABS: HEMATOCRIT 33.8 % (42.0-52.0); MEAN CORPUSCULAR HEMOGLOBIN 29.5 pg (27.0-33.0); MEAN CORPUSCULAR HGB CONC 35.5 g/dl (32.0-36.5); PLATELET COUNT, AUTOMATED 250 10^3/uL (150-450); RED BLOOD COUNT 4.07 10^6/uL (4.30-6.10); WHITE BLOOD COUNT 8.8 10^3/uL (4.0-10.0)
[2019-01-20 04:44] LABS: BLOOD UREA NITROGEN 5 MG/DL (7-18); CALCIUM LEVEL 7.9 MG/DL (8.5-10.1); CARBON DIOXIDE LEVEL 25 MEQ/L (21-32); CHLORIDE LEVEL 86 MEQ/L (98-107); CREATININE FOR GFR 0.62 MG/DL (0.70-1.30); GLOMERULAR FILTRATION RATE > 60.0 (>60); GLUCOSE, FASTING 104 MG/DL (70-100); MAGNESIUM LEVEL 1.9 MG/DL (1.8-2.4); POTASSIUM SERUM 3.4 MEQ/L (3.5-5.1); SODIUM LEVEL 120 MEQ/L (136-145)
[2019-01-20] MEDS ORDERED: POTASSIUM CHLORIDE 10 MEQ SR TABLET PO ONE (05:00)
[2019-01-20] MEDS: HEPARIN SOD (PORCINE) 5000 UNITS/ML VIAL SQ SCH ×3 (06:12→20:52)
--- NOTE | 2019-01-20 08:18 | REP ---
Portable chest x-ray: Single view. History: Dyspnea. No comparison study. Findings: The lungs are well inflated and clear. The pleural angles are sharp. Heart size is normal. No significant bony abnormality. Pulmonary vasculature is not increased. Impression: Negative portable chest x-ray. Electronically Signed by Hardy Hay MD 01/20/2019 08:10 A
[2019-01-20 08:59] LABS: BLOOD UREA NITROGEN 6 MG/DL (7-18); CALCIUM LEVEL 8.3 MG/DL (8.5-10.1); CARBON DIOXIDE LEVEL 25 MEQ/L (21-32); CHLORIDE LEVEL 93 MEQ/L (98-107); CREATININE FOR GFR 0.69 MG/DL (0.70-1.30); GLOMERULAR FILTRATION RATE > 60.0 (>60); GLUCOSE, FASTING 90 MG/DL (70-100); POTASSIUM SERUM 3.7 MEQ/L (3.5-5.1); SODIUM LEVEL 125 MEQ/L (136-145)
--- NOTE | 2019-01-20 09:30 | REP ---
CT cervical spine: 01/19/2019. Indication: Cervical spine trauma. Comparison: None. Technique: Unenhanced axial CT images of the cervical spine were performed with coronal and sagittal reconstructions provided. Findings: There is no acute fracture, subluxation or dislocation. Reversal of the cervical lordosis is present. There is no hemorrhage or additional acute post traumatic sequelae within the spinal canal detected. The visualized lungs are clear. Impression: No acute osseous injuries of the cervical spine. Electronically Signed by Trino Monroe DO 01/20/2019 09:21 A
[2019-01-20] MEDS: D5W 1,000 ML IV SCH ×3 (09:51→22:48)
--- NOTE | 2019-01-20 11:33 | IPNPDOC ---
Subjective Date Seen The patient was seen on 01/20/19. Subjective Chief Complaint/HPI hyponatremia, seizure Events since last encounter Patient's sodium is correcting with treatment. Currently in D5W at 60 cc per hour. labs due in 1 hour. Patient has been alert, appropriate with staff. Sitter is at bedside. EEG in process. Admits to feeling thirsty and drinking water, he is unable to quantify amount of water he drinks or has been drinking. medications on IMHU: Clozaril, Lorazepam. Oupatient psychiatry medications: Invega, Latuda, Rexulti last does 01/16/2019. patient has been non-compliant with outpatient medications. last dose is unknown. Constitutional: Denies: Chills, Fever, Night Sweats Pulmonary: Denies: Dyspnea, Cough Cardiovascular: Denies: Chest Pain, Palpitations, Orthopnea, Paroxysmal Noc. Dyspnea, Lt Headedness Gastrointestinal: Denies: Nausea, Vomiting, Abdominal Pain, Diarrhea, Constipation Neurological: Denies: Weakness, Numbness, Change in speech, Confusion Psych: Reports: Mood Normal; Denies: Depression, Memory Issues Objective Physical Examination General Exam: Positive: Alert, Cooperative, No Acute Distress Eye Exam: Positive: PERRLA, EOMI Neck Exam: Positive: Supple Chest Exam: Positive: Normal air movement Heart Exam: Positive: Normal S1, Normal S2 Telemetry: Positive: No significant arrhythmia Abdomen Exam: Positive: Normal bowel sounds, Soft; Negative: Tenderness Skin Exam: Positive: Nl turgor and temperature Neuro Exam: Positive: Other (combative, AMS) Psych Exam: Positive: Oriented x 3 Assessment /Plan Problems (1) AMS (altered mental status) Status: Acute Response to Treatment: Uncontrolled Discussed With: Nurse, Family with Pt Consent Problem Specific Plan: Monitor Clinically, Repeat Labs Problem Text: EEG pending. Most likely related to Na level. will monitor telemetry, Await labs at 1200 today (2) Hyponatremia Problem Specific Plan: Consult Specialist Problem Text: Nephrology following and co-managing. BMP and mag q 4 hrs. Plan/VTE VTE Prophylaxis Ordered?: Yes VTE Exclusion Mechanical Proph: N/A:VTE Prophy Ordered Plan IVF: Initiate Diet: Continue Current, Advance Activity: Bedrest Diagnostics: Check Labs, Repeat Labs in AM, EKG VS, I&O, 24H, Fishbone Vital Signs/I&O Vital Signs Date Time Temp Pulse Resp B/P (MAP) Pulse Ox O2 Delivery O2 Flow Rate FiO2 01/20/19 08:40 96 Room Air 01/20/19 07:41 98.3 88 20 124/60 (83) 01/20/19 01:00 2.0 I&O- Last 24 Hours up to 6 AM 01/20/19 06:00 Intake Total 250 ml Output Total 2850 ml Balance -2600 ml Laboratory Data 24H LABS Laboratory Tests 2 01/19/19 21:56: Immature Granulocyte % (Auto) 1.1, Neutrophils (%) (Auto) 75.3H, Lymphocytes (%) (Auto) 13.0L, Monocytes (%) (Auto) 9.1H, Eosinophils (%) (Auto) 1.2, Basophils (%) (Auto) 0.3, Neutrophils # (Auto) 8.6H, Lymphocytes # (Auto) 1.5, Monocytes # (Auto) 1.0H, Eosinophils # (Auto) 0.1, Basophils # (Auto) 0.0, Nucleated Red Blood Cells % (auto) 0.0, Anion Gap 14, Glomerular Filtration Rate > 60.0, Lact ic Acid Level 5.7*H, Calcium Level 8.1L, Total Bilirubin 0.9#, Aspartate Amino Transf (AST/SGOT) 22, Alanine Aminotransferase (ALT/SGPT) 26, Alkaline Phosphatase 67, Total Protein 6.7, Albumin 3.7, Albumin/Globulin Ratio 1.23 01/19/19 22:33: 01/20/19 00:59: Urine Random Osmolality 184L, Urine Random Sodium 24 01/20/19 01:58: Anion Gap 9, Glomerular Filtration Rate > 60.0, Calcium Level 7.6L, Osmolality 237L 01/20/19 02:34: Urine Random Osmolality 151L, Urine Random Sodium 21 01/20/19 04:13: Nucleated Red Blood Cells % (auto) 0.0, Anion Gap 9, Glomerular Filtration Rate > 60.0, Lactic Acid Followup at 4 Hours 0.6, Calcium Level 7.9L, Magnesium Level 1.9 01/20/19 08:16: Anion Gap 7L, Glomerular Filtration Rate > 60.0, Calcium Level 8.3L, Magnesium Level 2.0 CBC/BMP Laboratory Tests 01/19/19 21:56 01/20/19 01:58 01/20/19 04:13 01/20/19 08:16 Microbiology Microbiology 01/19/19 Blood Culture, Received Pending Angelica Lancaster [facility] Jan 20, 2019 11:33
[2019-01-20 12:51] LABS: BLOOD UREA NITROGEN 6 MG/DL (7-18); CALCIUM LEVEL 8.5 MG/DL (8.5-10.1); CARBON DIOXIDE LEVEL 25 MEQ/L (21-32); CHLORIDE LEVEL 99 MEQ/L (98-107); GLOMERULAR FILTRATION RATE > 60.0 (>60); GLUCOSE, FASTING 98 MG/DL (70-100); POTASSIUM SERUM 4.3 MEQ/L (3.5-5.1); SODIUM LEVEL 130 MEQ/L (136-145)
[2019-01-20 15:10] LABS: BLOOD UREA NITROGEN 7 MG/DL (7-18); CALCIUM LEVEL 8.6 MG/DL (8.5-10.1); CARBON DIOXIDE LEVEL 26 MEQ/L (21-32); CHLORIDE LEVEL 102 MEQ/L (98-107); CREATININE FOR GFR 0.96 MG/DL (0.70-1.30); GLOMERULAR FILTRATION RATE > 60.0 (>60); GLUCOSE, FASTING 108 MG/DL (70-100); SODIUM LEVEL 134 MEQ/L (136-145)
[2019-01-20] MEDS ORDERED: D5W 1000ML IV ONE (15:45)
[2019-01-20 18:04] LABS: BLOOD UREA NITROGEN 10 MG/DL (7-18); CALCIUM LEVEL 8.2 MG/DL (8.5-10.1); CARBON DIOXIDE LEVEL 25 MEQ/L (21-32); CHLORIDE LEVEL 103 MEQ/L (98-107); CREATININE FOR GFR 0.91 MG/DL (0.70-1.30); GLOMERULAR FILTRATION RATE > 60.0 (>60); GLUCOSE, FASTING 103 MG/DL (70-100); MAGNESIUM LEVEL 2.2 MG/DL (1.8-2.4); POTASSIUM SERUM 3.9 MEQ/L (3.5-5.1); SODIUM LEVEL 133 MEQ/L (136-145)
[2019-01-20] MEDS ORDERED: DESMOPRESSIN ACETATE 30 MCG in NS 50 ML IV ONE (19:00)
--- NOTE | 2019-01-20 20:36 | CR ---
DATE OF CONSULTATION: 01/20/2019 NEPHROLOGY CONSULTATION FOR: Delia Stoll MD REASON FOR CONSULTATION: Severe hyponatremia. Mr. Singletary is a 33-year-old male with known history of schizoaffective disorder, bipolar type, who was admitted to inpatient mental health unit on 01/15/2019, and at that time he had labs done which showed a serum sodium level of 138. His BUN was 11 and creatinine 1.4. On 01/17/2019, his sodium was 132 and potassium 4.4. On the evening of 01/19/2018, the patient was found to be unresponsive in his room on the floor with possible seizure. He was transferred to intensive care unit, and his labs showed a sodium level of 114. He was admitted by hospitalist service, and I received a call about 2:00 a.m. from hospitalist who was admitting and I was asked a question about how to administer 3% saline. A formal consult was not requested at that time. In any event, when I arrived to intensive care unit around 10:30 a.m. to see other patients, I was asked by nursing staff to see Mr. Singletary, and I informed the nursing staff that I had not been formally consulted. However, they informed me that there is a consult request in the computer. In any event, at this point, I did interview briefly, Mr. Singletary in his room and examined him briefly. Apparently his serum sodium level was up to 125 by this time already and hospitalist service had already started intravenous D5W at 60 mL per hour with a plan for repeat labs at 12:30. The patient was completely asymptomatic at this time and denied any headache, nausea or vomiting. He has been eating and drinking. The patient's brother was present in the room, who informed me that at home he drinks excessive nonstop fluids, which is normal for him. In inpatient mental health unit, he was quite stressed, and he drank even much more amount of liquid while he was in inpatient mental health. He does not have any history of use of lithium and no formal diagnosis of diabetes insipidus. PAST MEDICAL AND SURGICAL HISTORY: 1. Significant for schizoaffective disorder, bipolar type, with increased paranoia. 2. History of a mass removal from his right breast in 2008. MEDICATIONS: His medications included Invega Sustenna 234 mg injection once a month, Latuda 120 mg tablets every evening, Rexulti 3 mg tablet daily. ALLERGIES: There are no known drug allergies. PERSONAL AND SOCIAL HISTORY: The patient has no history of smoking or drug use. He drinks alcohol occasionally, but there is also a history of binge drinking. Family history is noncontributory. REVIEW OF SYSTEMS: The patient denies any headache, ears, nose or throat problems. Cardiovascular system: Negative for dyspnea, chest pain or leg edema. Respiratory system: Negative for cough or hemoptysis. He did have vomiting when he was found unresponsive. Neurological system is negative for any previous history of seizures, but he was noticed to have seizures in the inpatient mental health unit when he was found unresponsive on the floor. Skin is negative for rash or ulcers. Endocrine system is negative for diabetes or thyroid problems known. Intake and output records showed that the patient had excessive urine output. Nursing staff report [id number] mL urine output per hour while his intake has been limited here in intensive care unit to a total of about 2.8 liters. PHYSICAL EXAMINATION: Temperature 98.3 degrees Fahrenheit, heart rate 90 per minute and respiratory rate 20 per minute. Blood pressure 111/56 mmHg and oxygen saturation 95% on room air. Head is atraumatic. Neck is supple and without jugular venous distention (JVD) or thyroid enlargement. Ears, nose and throat are unremarkable. Heart exam reveals regular S1 and S2. Lungs: Clear to auscultation. Abdomen: Soft and nontender. Bowel sounds are normal. Extremities: Without any cyanosis or clubbing. Neurologically, the patient seems to be grossly intact. He is able to answer questions. LABORATORY DATA: Inpatient mental health labs on 01/15/2019: Sodium 138 while on 01/17/2019 sodium was 132. In the intensive care unit, initial labs showed sodium 114, potassium 3.7, chloride 79, BUN 7 and creatinine 9.0. At 1:58 a.m. his sodium was 120 and potassium 3.5, 4:13 a.m. sodium 120 and potassium 3.4, while 8:16 a.m. sodium 125 and potassium 3.7. BUN is 6 and creatinine 0.69. Initial urine osmolarity was 184 and random urine sodium 24. Urinalysis showed a specific gravity of 1.000 and pH of 8.0, otherwise unremarkable. PROBLEMS: Severe hyponatremia. Most likely related to obsessive-compulsive drinking. He did have normal sodium level on admission but has a long history of excessive drinking even at home. His sodium level has improved somewhat faster than desired. He has already been started on IV D5W, and we will increase the rate depending upon his next chemistry. I have advised the nursing staff to change his chemistry order to every 3 hours and call me with all results. The patient is allowed to drink without any restriction. At this point, we will monitor his electrolytes and try to keep his sodium level at about 124-125 range for next 12 hours and use the D5W to replace any urinary losses. Nursing staff reports that he has excessive amount of urine output and will wait for the chemistry to make a decision about IV fluids. The patient should continue with oral fluid intake as usual when he feels thirsty. Thank you for involving me in the care of Mr. Singletary. I will follow him along with you.
[2019-01-20 21:14] LABS: BLOOD UREA NITROGEN 10 MG/DL (7-18); CALCIUM LEVEL 8.1 MG/DL (8.5-10.1); CARBON DIOXIDE LEVEL 27 MEQ/L (21-32); CHLORIDE LEVEL 103 MEQ/L (98-107); CREATININE FOR GFR 0.84 MG/DL (0.70-1.30); GLOMERULAR FILTRATION RATE > 60.0 (>60); GLUCOSE, FASTING 107 MG/DL (70-100); MAGNESIUM LEVEL 2.2 MG/DL (1.8-2.4); POTASSIUM SERUM 3.9 MEQ/L (3.5-5.1); SODIUM LEVEL 135 MEQ/L (136-145)
--- NOTE | 2019-01-20 22:29 | EEG ---
DATE OF PROCEDURE: 01/20/2019 REFERRING PHYSICIAN: Dr. Delia Stoll DIAGNOSIS: Seizure. EEG number was not provided. HISTORY: The patient is a 33-year-old man with a history of bipolar and schizoaffective disorder who was admitted at inpatient mental health unit. He is currently taking Invega, Latuda, Rexulti injectable medications. He had a generalized tonic-clonic seizure with postictal confusion, combativeness and difficulty standing. This EEG was done to rule out epileptic potential. TECHNICAL DESCRIPTION: This digital EEG was recorded by 21 scalp, ear and two EKG electrodes and was reviewed in bipolar and referential montages following reformatting in 10-20 international electrode placement system. INTERPRETATION: The patient was noted to be mostly in drowsy state during this EEG. Resting background rhythm consisted of 9 Hz alpha activity measuring 15-40 microvolts in amplitude, which was symmetric and reactive to eye opening. Stage I and II sleep were reviewed and were symmetric bilaterally. Infrequent left mid temporal sharply contoured theta activity was noted. Hyperventilation could not be performed. Photic stimulation remained unremarkable. EKG revealed normal sinus rhythm. No relevant clinical activity was noted. CONCLUSION: This EEG mostly in drowsy state, stage I and II sleep is abnormal due to presence of left temporal sharply controlled theta activity, which is suspicious for but not clearly epileptic. Clinical correlation is recommended.
[2019-01-20 23:58] LABS: BLOOD UREA NITROGEN 9 MG/DL (7-18); CALCIUM LEVEL 8.3 MG/DL (8.5-10.1); CARBON DIOXIDE LEVEL 28 MEQ/L (21-32); CHLORIDE LEVEL 103 MEQ/L (98-107); CREATININE FOR GFR 0.82 MG/DL (0.70-1.30); GLOMERULAR FILTRATION RATE > 60.0 (>60); GLUCOSE, FASTING 106 MG/DL (70-100); MAGNESIUM LEVEL 2.1 MG/DL (1.8-2.4); POTASSIUM SERUM 3.7 MEQ/L (3.5-5.1); SODIUM LEVEL 136 MEQ/L (136-145)
[2019-01-21] VITALS (9 sets, daily range): BP systolic 113–123; BP diastolic 56–69
[2019-01-21 03:01] LABS: BLOOD UREA NITROGEN 9 MG/DL (7-18); CALCIUM LEVEL 7.6 MG/DL (8.5-10.1); CARBON DIOXIDE LEVEL 27 MEQ/L (21-32); CHLORIDE LEVEL 104 MEQ/L (98-107); CREATININE FOR GFR 0.79 MG/DL (0.70-1.30); GLOMERULAR FILTRATION RATE > 60.0 (>60); GLUCOSE, FASTING 96 MG/DL (70-100); POTASSIUM SERUM 3.8 MEQ/L (3.5-5.1); SODIUM LEVEL 136 MEQ/L (136-145)
[2019-01-21] MEDS: HEPARIN SOD (PORCINE) 5000 UNITS/ML VIAL SQ SCH ×3 (05:38→20:59)
[2019-01-21 06:04] LABS: ALBUMIN 3.4 GM/DL (3.2-5.2); BLOOD UREA NITROGEN 8 MG/DL (7-18); CALCIUM LEVEL 7.9 MG/DL (8.5-10.1); CARBON DIOXIDE LEVEL 27 MEQ/L (21-32); CHLORIDE LEVEL 103 MEQ/L (98-107); CREATININE FOR GFR 0.79 MG/DL (0.70-1.30); GLOMERULAR FILTRATION RATE > 60.0 (>60); GLUCOSE, FASTING 90 MG/DL (70-100); MAGNESIUM LEVEL 2.1 MG/DL (1.8-2.4); PHOSPHORUS LEVEL 2.4 MG/DL (2.5-4.9); POTASSIUM SERUM 3.8 MEQ/L (3.5-5.1); SODIUM LEVEL 135 MEQ/L (136-145)
[2019-01-21] MEDS: D5W 1,000 ML IV SCH (07:33)
--- NOTE | 2019-01-21 09:05 | IPNPDOC ---
Subjective Date Seen The patient was seen on 01/21/19. Subjective Chief Complaint/HPI alert, without complaints today Constitutional: Denies: Chills, Fever Pulmonary: Denies: Dyspnea, Cough Cardiovascular: Denies: Chest Pain, Palpitations Gastrointestinal: Denies: Nausea, Vomiting, Abdominal Pain, Diarrhea, Constipation Objective Physical Examination General Exam: Positive: Alert, Cooperative, No Acute Distress Eye Exam: Positive: PERRLA, EOMI Neck Exam: Positive: Supple Chest Exam: Positive: Normal air movement Heart Exam: Positive: Normal S1, Normal S2 Telemetry: Positive: No significant arrhythmia Abdomen Exam: Positive: Normal bowel sounds, Soft; Negative: Tenderness Skin Exam: Positive: Nl turgor and temperature Neuro Exam: Positive: Normal Speech, Other (poor eye contact, covers face with sheet, but follows commands and answers questions approprately) Psych Exam: Positive: Oriented x 3, Other (Denies SI) Assessment /Plan Problems (1) Metabolic encephalopathy Status: Resolved Problem Text: secondary to hyponatrmia from psychogenic polydipsia (2) Hyponatremia Status: Resolved Problem Specific Plan: Consult Specialist Problem Text: Na back to normal with IVF Hyponatremia secondary to psychogenic polydipsia in combination with psych meds that can cause SIADH (3) Schizophrenia Status: Chronic Problem Text: Per psychiatry (4) AMS (altered mental status) Status: Acute Response to Treatment: Uncontrolled Discussed With: Nurse, Family with Pt Consent Problem Specific Plan: Monitor Clinically, Repeat Labs Problem Text: EEG: This EEG mostly in drowsy state, stage I and II sleep is ab normal due to presence of left temporal sharply controlled theta activity, which is suspicious for but not clearly epileptic. Clinical correlation is recommended Will consult Neurology to weigh in on EEG results and help decide if need for antiepileptics Seizure activity precipitated by hyponatremia. Plan/VTE VTE Prophylaxis Ordered?: Yes VTE Exclusion Mechanical Proph: N/A:VTE Prophy Ordered Plan IVF: Initiate Diet: Continue Current, Advance Activity: Bedrest Diagnostics: Check Labs, Repeat Labs in AM, EKG VS, I&O, 24H, [facility] Vital Signs/I&O Vital Signs Date Time Temp Pulse Resp B/P (MAP) Pulse Ox O2 Delivery O2 Flow Rate FiO2 01/21/19 08:00 98.0 72 20 118/57 (78) 98 Room Air 01/20/19 01:00 2.0 I&O- Last 24 Hours up to 6 AM 01/21/19 06:00 Intake Total 4895 ml Output Total 47925 ml Balance -5150 ml Laboratory Data 24H LABS Laboratory Tests 2 01/20/19 12:17: Anion Gap 6L, Glomerular Filtration Rate > 60.0, Calcium Level 8.5 01/20/19 12:19: Urine Color COLORLESS, Urine Appearance CLEAR, Urine pH 8.0, Urine Specific [place] 1.000L, Urine Protein NEGATIVE, Urine Glucose (UA) NEGATIVE, Urine Ketones NEGATIVE, Urine Blood NEGATIVE, Urine Nitrite NEGATIVE, Urine Bilirubin NEGATIVE, Urine Urobilinogen 0.2, Urine Leukocyte Esterase NEGATIVE, Urine WBC (Auto) 0, Urine RBC (Auto) 0, Urine Hyaline Casts (Auto) 0, Urine Bacteria (Auto) NEGATIVE, Urine Squamous Epithelial Cells 0, Urine Sperm (Auto) 01/20/19 14:32: Anion Gap 6L, Glomerular Filtration Rate > 60.0, Calcium Level 8.6, Magnesium Level 2.1 01/20/19 17:31: Anion Gap 5L, Glomerular Filtration Rate > 60.0, Calcium Level 8.2L, Magnesium Level 2.2 01/20/19 20:42: Anion Gap 5L, Glomerular Filtration Rate > 60.0, Calcium Level 8.1L, Magnesium Level 2.2 01/20/19 23:31: Anion Gap 5L, Glomerular Filtration Rate > 60.0, Calcium Level 8.3L, Magnesium Level 2.1 01/21/19 02:30: Anion Gap 5L, Glomerular Filtration Rate > 60.0, Calcium Level 7.6L, Magnesium Level 2.0 01/21/19 05:32: Anion Gap 5L, Glomerular Filtration Rate > 60.0, Calcium Level 7.9L, Magnesium Level 2.1, Phosphorus Level 2.4L, Albumin 3.4 CBC/BMP Laboratory Tests 01/20/19 12:17 01/20/19 14:32 01/20/19 17:31 01/20/19 20:42 01/20/19 23:31 01/21/19 02:30 01/21/19 05:32 Microbiology Microbiology 01/19/19 Blood Culture - Preliminary, Resulted No growth after 24 hours . All specim... CHANA PAGE PA-C Jan 21, 2019 09:05
--- NOTE | 2019-01-21 13:11 | MHCRPDOC ---
[facility] Consultation Consultation DATE OF CONSULTATION: 01/21/19 New Patient Mike Singletary MRN: N/A Date of : N/A Date of Service: 01/21/2019 Chief Complaint Consultation on medical floor. History of Present Illness The patient a 33-year-old man with schizoaffective disorder who was sent from the medical floor where he was treated on the psychiatric floor, was admitted due to hyponatremia secondary to psychogenic polydipsia where he needed to be treated in the ICU. He was seen in follow up where he reported that he was feeling somewhat better. He has been off of his Clozaril and my recommendation as his condition was fairly acute. He has been seen by neurology who recommended anti-epileptics, but it appears that the seizure was provoked. The patient still is having psychotic symptoms with poor eye contact, disorganization and difficulty with paranoia. The information below was extracted from my previous H&P and updated as appropriate. Review Of Systems Depression: No changes. Anxiety: No changes. Linsey: No changes. Psychotic: No changes. Trauma: No changes. Borderline: No changes. Past Psychiatric History Has a history of schizoaffective disorder, currently on Latuda and Rexulti with an injectable anti-psychotic, treated by Dr. Villalta at [facility] for the last several years. He has no reported history of suicide attempts and has one last hospitalization in 2017 in [facility]. Allergies Please see below. Family Psychiatric History The patient denies/is unaware any history of mental health history including addictions and suicide. Social History The patient currently lives at home. He is single, unmarried with no children. He is reportedly unemployed. 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 He currently lives with his mother and father. His father is a well-known physician in the local area. No notable legal history. Substance Abuse History Has a history of alcohol use with binge drinking, but no other tobacco, illicit drug use or notable substance use history. Medical History As above. Mental Status Examination General: Fair hygiene. Speech: Sparse. Thought processes: Circumstantial. MSK: Smooth and coordinated gait, no signs of tremors or involuntary orofacial movements Thought content: Paranoid. Abstract reasoning, and computation: Impaired. Description of associations: Impaired. Description of abnormal or psychotic thoughts: Denies any suicidal or homicidal ideation. Judgment: Impaired. Insight: Impaired. Orientation: Alert and orientated 3 Cognition: Grossly normal Recent and remote memory: Intact Attention span and concentration: Intact Fund of knowledge: Adequate Mood: "Fine." Affect: Flat with little reactivity. Diagnoses Schizophrenia. Alcohol use disorder, unspecified. Psychogenic polydipsia. Assessment and Plan The patient will be admitted to the inpatient mental health service where he can be resumed on Clozaril. Recommended continued water restriction due to psychogenic polydipsia. 939 paperwork is filled out and filed in the [facility] for his potential transfer tomorrow when we have bed availability. Disposition Transferred [facility] when medically cleared. Time Spent 30 minutes. Sunday Vital Signs Vital Signs Date Time Temp Pulse Resp B/P (MAP) Pulse Ox O2 Delivery O2 Flow Rate FiO2 01/21/19 12:00 98.1 78 20 122/64 (86) 98 Room Air 01/20/19 01:00 2.0 Laboratory Data 24H Labs Laboratory Tests 2 01/20/19 14:32: Anion Gap 6L, Glomerular Filtration Rate > 60.0, Calcium Level 8.6, Magnesium Level 2.1 01/20/19 17:31: Anion Gap 5L, Glomerular Filtration Rate > 60.0, Calcium Level 8.2L, Magnesium Level 2.2 01/20/19 20:42: Anion Gap 5L, Glomerular Filtration Rate > 60.0, Calcium Level 8.1L, Magnesium Level 2.2 01/20/19 23:31: Anion Gap 5L, Glomerular Filtration Rate > 60.0, Calcium Level 8.3L, Magnesium Level 2.1 01/21/19 02:30: Anion Gap 5L, Glomerular Filtration Rate > 60.0, Calcium Level 7.6L, Magnesium Level 2.0 01/21/19 05:32: Anion Gap 5L, Glomerular Filtration Rate > 60.0, Calcium Level 7.9L, Magnesium Level 2.1, Phosphorus Level 2.4L, Albumin 3.4 01/21/19 11:55: Bedside Glucose (Misc Panel) 89 Home Medications Current Medications Current Medications Medications (Trade) Dose Ordered Sig/Julian Route PRN Reason Start Time Stop Time Status Last Admin Dose Admin Dextrose/Water 1,000 ml @ 100 mls/hr Q10H IV 01/20/19 09:30 01/21/19 07:33 Heparin Sodium (Porcine) (Heparin) 5,000 units Q8H SQ 01/20/19 06:00 01/21/19 05:38 Lactated Ringer's 1,000 ml @ 100 mls/hr Q10H IV 01/19/19 22:15 01/20/19 03:06 DC 01/19/19 22:51 Lorazepam (Ativan) 2 mg Q4HP PRN IM AGITATION 01/19/19 21:30 Lorazepam (Ativan) 2 mg STAT STAT IM 01/19/19 21:25 01/19/19 21:27 DC 01/19/19 21:00 Lorazepam (Ativan) 2 mg STAT STAT IV 01/19/19 21:33 01/19/19 21:34 DC Ondansetron HCl (ZOFRAN INJection) 2 mg Q4HP PRN IV NAUSEA OR VOMITING 01/19/19 21:45 Sodium Chloride 250 ml @ 50 mls/hr Q5H IV 01/19/19 23:30 01/19/19 23:45 DC Sodium Chloride 500 ml @ 50 mls/hr Q10H IV 01/20/19 00:00 01/20/19 02:00 DC 01/20/19 00:11 No Active Prescriptions or Reported Meds Allergies Coded Allergies: No Known Allergies (Unverified , 01/15/19) TINA MINAYA DO Jan 21, 2019 13:11
[2019-01-21 17:50] LABS: ALBUMIN 3.2 GM/DL (3.2-5.2); BLOOD UREA NITROGEN 8 MG/DL (7-18); CALCIUM LEVEL 7.8 MG/DL (8.5-10.1); CARBON DIOXIDE LEVEL 25 MEQ/L (21-32); CHLORIDE LEVEL 99 MEQ/L (98-107); CREATININE FOR GFR 0.79 MG/DL (0.70-1.30); GLOMERULAR FILTRATION RATE > 60.0 (>60); GLUCOSE, FASTING 124 MG/DL (70-100); PHOSPHORUS LEVEL 2.6 MG/DL (2.5-4.9); POTASSIUM SERUM 3.3 MEQ/L (3.5-5.1); SODIUM LEVEL 129 MEQ/L (136-145)
[2019-01-21] MEDS ORDERED: POTASSIUM CHLORIDE 10 MEQ SR TABLET PO ONE (18:15)
--- NOTE | 2019-01-21 18:21 | IPN ---
DATE: 01/21/2019 Mr. Singletary is seen this morning on his bedside. We worked on his fluid and electrolytes through the night. His sodium level has remained stable at 135-136, and he is completely asymptomatic. He had massive urine output yesterday, about 10.3 liters, and intravenous (IV) fluid was given to keep up with his losses; however, he was still negative by about 6 liters. His urine output has now slowed down. He is eating and drinking normally. He denies any headache, nausea, vomiting, visual problems, dyspnea, chest pain, or leg edema. PHYSICAL EXAMINATION: Temperature 98 degrees Fahrenheit, heart rate 78 per minute, and respiratory rate 20 per minute. Blood pressure 122/64 mm of mercury, and oxygen saturation 98% on room air. His head is traumatic. Neck supple and without jugular venous distention (JVD) or thyroid enlargement. Heart sounds are regular, and lungs clear to auscultation. Abdomen soft and nontender, and bowel sounds are normal. Extremities without any cyanosis or clubbing. Neurologically, he is awake, alert, and oriented times three. He has no focal deficit. Today's laboratories shows sodium 135, potassium 3.8, CO2 of 27, BUN 8, creatinine 0.79, glucose 90, and calcium 7.9. Magnesium level is 2.1. PROBLEMS: 1. Hyponatremia. Patient had severe hyponatremia, which was superacute, caused by water intoxication related to psychogenic polydipsia. He had massive diuresis, and sodium level improved. He did not respond to DDAVP. He has been receiving intravenous (IV) D5W and will continue until we are sure that his urine output remains unchanged. Yesterday he had about 10.3 urine output, but today he seems to be doing much better with almost about 2.5 liter output so far. I will re-evaluate his urine output and intake later in the afternoon and consider to stop his IV fluid at that time. I will also recheck his electrolytes. We are trying to keep his sodium from getting too high. He is receiving D5W in an effort to bring his sodium down to 120s, and then we will let it go up normal range gradually. All in all, he has done very well and remains completely asymptomatic.
[2019-01-22] MEDS: HEPARIN SOD (PORCINE) 5000 UNITS/ML VIAL SQ SCH (04:59)
[2019-01-22 06:00] VITALS: BP 124/72
[2019-01-22 06:52] LABS: ALBUMIN 3.1 GM/DL (3.2-5.2); BLOOD UREA NITROGEN 6 MG/DL (7-18); CALCIUM LEVEL 8.4 MG/DL (8.5-10.1); CARBON DIOXIDE LEVEL 24 MEQ/L (21-32); CHLORIDE LEVEL 101 MEQ/L (98-107); CREATININE FOR GFR 0.72 MG/DL (0.70-1.30); GLOMERULAR FILTRATION RATE > 60.0 (>60); GLUCOSE, FASTING 87 MG/DL (70-100); PHOSPHORUS LEVEL 2.8 MG/DL (2.5-4.9); SODIUM LEVEL 132 MEQ/L (136-145)
--- NOTE | 2019-01-22 07:05 | CR ---
DATE OF CONSULTATION: 01/21/2019 REFERRING PHYSICIAN: Dr. Delia Stoll REASON FOR CONSULTATION: Seizure. HISTORY OF PRESENT ILLNESS: Mike Singletary is a 33-year-old man who was admitted at inpatient mental health unit due to his schizoaffective disorder, bipolar disorder, paranoid ideation, psychogenic polydipsia and obsessive behaviors. The patient has a history of psychiatric symptoms for a number of years. He has been taking psychiatric medicines for several years now. He drinks excessive amounts of water. He also has periodic excessive alcohol intake. He can drink half a bottle of liquor or 12 beers in a day. The last few weeks, he had been drinking daily until Sunday when he stopped drinking. He was hospitalized last week at which point he had stopped drinking alcohol. He was in the mental health unit. On Sunday, his family visited him in the afternoon when he was in the mental health unit. They left around 6:30 in the evening and within a couple of hours they were called that the patient had a suspected seizure. He was found unresponsive on the floor. He was laying on the floor and his face was turned to the right side to maintain his airway. He was unresponsive to sternal rub and verbal commands. Saliva was dripping from his mouth. He was confused, disoriented and became combative and tried to stand up, but was unable to do so due to weakness of his legs. He vomited twice. The patient does not recall this event. He denies any headaches, neck pain, back pain, dysphagia, dysarthria, diplopia, falls, or loss of consciousness. PAST MEDICAL HISTORY: Schizoaffective disorder, bipolar disorder. The patient denies any history of seizures in the past, family history of seizures, history of meningitis, head injuries or febrile seizures in past. HOME MEDICATIONS: Invega Sustenna 234 mg intramuscular once a month, Latuda 120 mg by mouth daily, Rexulti 3 mg by mouth daily. ALLERGIES: None. REVIEW OF SYSTEMS: All systems were reviewed and found to be noncontributory except as mentioned in history of present illness. SOCIAL HISTORY: He is a nonsmoker. He has binge alcohol drinking. He may drink 5 days in a row and then none for a few days. For the last few weeks, he was drinking daily until he was admitted to the mental health unit. He currently denies any illicit drug use. PHYSICAL EXAMINATION: Blood pressure 123/64, pulse 80, respiratory rate 16, 99% saturation on room air. Heart: Regular rate and rhythm. Lungs: Clear to auscultation. Abdomen: Soft, nontender, nondistended. No pedal edema. No musculoskeletal abnormalities. No rash. No signs of meningeal irritation. The patient is awake, alert, oriented to place, person and time. Normal speech, comprehension and repetition. Extraocular muscles are intact. No facial weakness. Tongue and uvula are midline. 5/5 strength in all four extremities. Deep tendon flexes 2+ throughout. Normal sensation throughout. Visual sarmiento are full to confrontation. Recent and distant memory is intact. DIAGNOSTIC STUDIES: His serum sodium was 114 on January 19, 2019 due to psychogenic polydipsia and his serum sodium was corrected over 24 hours and today his serum sodium was 135. Hemoglobin was 12. CT scan of the head was within normal limits. His EEG showed sharply contoured theta activity in the left temporal head region, but no clear epileptic discharges. This can be due to his hyponatremia and withdrawal from alcohol. ASSESSMENT: 1. Suspected seizure likely induced by hyponatremia and withdrawal from alcohol intake. 2. Bipolar and schizoaffective disorder. 3. Psychogenic polydipsia causing hyponatremia. PLAN: 1. Avoid alcohol intake and excessive water intake which will decrease recurrence of seizure and risk of hyponatremia in future. His possible seizure and EEG abnormality is likely induced by these factors. 2. Antiepileptic medications only if he has a recurrent unprovoked seizure in the future. 2. He is aware that he should not be driving. 4. Management of his psychiatric disorder per psychiatry.
--- NOTE | 2019-01-22 10:42 | IPNPDOC ---
Subjective Date Seen The patient was seen on 01/22/19. Subjective Chief Complaint/HPI No further seizures. Feels well. No complaints Constitutional: Denies: Chills, Fever Pulmonary: Denies: Dyspnea, Cough Cardiovascular: Denies: Chest Pain, Palpitations Gastrointestinal: Denies: Nausea, Vomiting, Abdominal Pain, Diarrhea, Constipation Objective Physical Examination General Exam: Positive: Alert, No Acute Distress Chest Exam: Positive: Clear to auscultation; Negative: Rales, Rhonchi, Wheezing Heart Exam: Positive: Rate Normal, Regular Rhythm Telemetry: Positive: No significant arrhythmia Abdomen Exam: Positive: Normal bowel sounds, Soft; Negative: Tenderness Extremity Exam: Negative: Edema Psych Exam: Positive: Mental status NL Assessment /Plan Problems (1) Metabolic encephalopathy Status: Resolved Problem Text: secondary to hyponatrmia from psychogenic polydipsia (2) Hyponatremia Status: Resolved Problem Specific Plan: Consult Specialist Problem Text: 01/22 - Na improved. IVF stopped. Monitor I & O and try to avoid polydipsia. Start F (3) Schizophrenia Status: Chronic Problem Text: Per psychiatry (4) Seizure Status: Resolved Problem Text: EEG: This EEG mostly in drowsy state, stage I and II sleep is abnormal due to presence of left temporal sharply controlled theta activity, which is suspicious for but not clearly epileptic. Clinical correlation is recommended Appreciate Neurology input - Seizure induced by hyponatremia and ETOH withdrawl No need for anti-epileptics unless has unprovoked seizure Plan/VTE VTE Prophylaxis Ordered?: Yes VTE Exclusion Mechanical Proph: N/A:VTE Prophy Ordered Plan Diet: Continue Current, Advance Activity: Bedrest Disposition Medically stable for discharge back to [facility]. PFS aware and checking for beds VS, I&O, 24H, [facility] Vital Signs/I&O Vital Signs Date Time Temp Pulse Resp B/P (MAP) Pulse Ox O2 Delivery O2 Flow Rate FiO2 01/22/19 06:00 98.0 68 18 124/72 (89) 96 Room Air 01/20/19 01:00 2.0 I&O- Last 24 Hours up to 6 AM 01/22/19 06:00 Intake Total 3720 ml Output Total 700 ml Balance 3020 ml Laboratory Data 24H LABS Laboratory Tests 2 01/21/19 11:55: Bedside Glucose (Misc Panel) 89 01/21/19 17:09: Anion Gap 5L, Glomerular Filtration Rate > 60.0, Calcium Level 7.8L, Phosphorus Level 2.6, Albumin 3.2 01/22/19 06:10: Anion Gap 7L, Glomerular Filtration Rate > 60.0, Calcium Level 8.4L, Phosphorus Level 2.8, Albumin 3.1L, Magnesium Level 2.0 CBC/BMP Laboratory Tests 01/21/19 17:09 01/22/19 06:10 Microbiology Microbiology 01/19/19 Blood Culture - Preliminary, Resulted No Growth after 48 hours. All Specime... CHANA PAGE PA-C Jan 22, 2019 10:42
--- NOTE | 2019-01-22 11:45 | DSES ---
DATE OF ADMISSION: 01/19/2019 DATE OF DISCHARGE: BRIEF HISTORY AND PHYSICAL: The patient is a 33-year-old patient who was in inpatient mental health for treatment of schizophrenia. He was found in his room unresponsive, having what appeared to be a new epileptic seizure event. PAST MEDICAL HISTORY: Is significant for a schizoaffective disorder and bipolar type. He was admitted to inpatient mental health unit ([facility]) for deterioration in his mental health on 01/15/2019 with increased paranoia and decreased function. He has a history of alcohol use with binge drinking and excessive water drinking with psychogenic polydipsia. No previous history of seizures. PERTINENT LABORATORIES ON ADMISSION: Sodium was 114, potassium 3.7, BUN 7, creatinine 0.9, glucose 171. White count 11, hemoglobin 11.7, platelets 278,000, glucose 89. Chest x-ray: Negative. C-spine CT showed no injury to the osseous structures. HOSPITAL COURSE: The patient was admitted for: 1. Metabolic encephalopathy secondary to hyponatremia from cytogenic polydipsia. Nephrology saw the patient in consultation and gave recommendations regarding intravenous (IV) fluids in an effort to the slowly normalize the patient's sodium in an effort to prevent spontaneous pontine myolysis. His sodium gradually improved and was 130 at about 12 hours later and had essentially normalized by the morning of 01/21/2019. It has drifted down slightly by the time of discharge at 132. At this point, a slight fluid restriction has been initiated in an effort to prevent hyponatremia secondary to psychogenic polydipsia. The patient has had no further seizures. His mental status is back to baseline. He is alert and oriented and answering questions and following commands and is stable for transfer back to [facility] for further treatment of schizoaffective disorder. 2. Seizure disorder. He had an electroencephalogram (EEG) that showed mostly in drowsy state stage I and II sleep. It is abnormal due to presence of left temporal sharply controlled theta activity which is suspicious but not clearly epileptic. Clinical correlation was recommended. Neurology saw the patient in consultation and felt that his seizures were induced by hyponatremia in combination with alcohol withdrawal. At this time, they did not recommend antiepileptics unless he has recurrent unprovoked seizures. 3. Hyponatremia secondary to psychogenic polydipsia. This has resolved. IV fluids have been discontinued. Will start a fluid restriction. 4. Schizophrenia. Per psychiatry. He will be transferred back to [facility] when a bed is available. DISPOSITION: He is stable for discharge to [facility]. Diet is regular with 1800 mL per 24-hour fluid restriction. He is not on any medications at this point at transfer. Activity as tolerated. DISCHARGE DIAGNOSES: 1. Acute metabolic encephalopathy secondary to hyponatremia. 2. Hyponatremia secondary to psychogenic polydipsia. 3. Seizure secondary to hyponatremia and alcohol withdrawal. 4. Schizoaffective disorder. 5. Alcohol abuse. 6. Psychogenic polydipsia.
[2019-01-22 14:00] VITALS: BP 120/70
== END 2019-01-22 14:40 | DRG 775 ==
LOC: M ICU 21:20 → M MSPAV 01-21 20:12
PROVIDERS: ADMIT Internal Medicine; ATTEND Family Medicine
DX: F10.239 Alcohol dependence with withdrawal, unspecified (principal); G93.41 Metabolic encephalopathy; R56.9 Unspecified convulsions; E87.79 Other fluid overload; F25.0 Schizoaffective disorder, bipolar type; E87.1 Hypo-osmolality and hyponatremia; R63.1 Polydipsia; F41.9 Anxiety disorder, unspecified

== ENCOUNTER 2019-01-22 13:19 | Inpatient (IN) | payer MEDICAID ==
[~2019-01-22 13:19] MED LIST changes: -LORA0.5T11 PO; +LORA0.5T5 PO
[2019-01-22] MEDS ORDERED: MAALOX 30 ML SUSP *UDC PO PRN (14:15)
[2019-01-22] MEDS ORDERED: ACETAMINOPHEN TAB 650MG DOSE (2X325MG) PO PRN (14:15)
[2019-01-22] MEDS ORDERED: MOM 30ML SUSPENSION UDC PO PRN (14:15)
[2019-01-22 15:11] VITALS: BP 112/57
[2019-01-22 15:36] LABS: BASO % 0.5 % (0.0-1.0); EOS # 0.4 10^3/uL (0.0-0.5); HEMATOCRIT 42.4 % (42.0-52.0); HEMOGLOBIN 14.2 g/dl (13.5-17.5); LYMPH # 1.6 10^3/uL (1.5-5.0); LYMPH % 28.9 % (24.0-44.0); MEAN CORPUSCULAR HEMOGLOBIN 29.8 pg (27.0-33.0); MEAN CORPUSCULAR HGB CONC 33.5 g/dl (32.0-36.5); MEAN CORPUSCULAR VOLUME 88.9 fl (80.0-96.0); MONO # 0.7 10^3/uL (0.0-0.8); MONO % 11.9 % (0.0-5.0); NEUTROPHILS # 2.8 10^3/uL (1.5-8.5); NEUTROPHILS % 50.5 % (36.0-66.0); PLATELET COUNT, AUTOMATED 289 10^3/uL (150-450); RED BLOOD COUNT 4.77 10^6/uL (4.30-6.10); WHITE BLOOD COUNT 5.5 10^3/uL (4.0-10.0)
[2019-01-22] MEDS ORDERED: cloZAPine 25 MG TAB (S0136) PO SCH (21:00)
[2019-01-23 06:30] VITALS: BP 137/63
--- NOTE | 2019-01-23 10:45 | MHHPEPDOC ---
[facility] History & Physical History and Physical DATE OF ADMISSION: Jan 22, 2019 at 14:50 New Patient Mike Singletary MRN: N/A Date of : N/A Date of Service: 01/23/2019 Chief Complaint "I'm here." History of Present Illness The patient a 33-year-old man with a history of schizophrenia, is brought to the inpatient unit after he had received consultation on the inpatient medical floor for hyponatremia secondary to his polydipsia. The patient has been restarted on clozapine 12.5 mg when he had represented. He still has difficulty drinking excessive amounts of water despite our attempts to limit his access to water. He is still bizarre and paranoid, answering questions very tersely and concretely without any excessive amount of information given. He still seems to resist any attempts to build report or to understand his symptomatology better. The psychosocial information below is extracted from my previous assessments and updated as appropriate. Review Of Systems Depression: No changes. Anxiety: No changes. Linsey: No changes. Psychotic: No changes. Trauma: No changes. Borderline: No changes. Past Psychiatric History The patient reports no history of psychiatric admissions, medication trials or current follow up. Allergies Please see below. Family Psychiatric History Reports having a history of depression in his mom. Social History The patient currently lives at home. He is single, unmarried with no children. He is reportedly unemployed. 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 He currently lives with his mother and father. His father is a well-known physician in the local area. No notable legal history. Substance Abuse History Has a history of alcohol use with binge drinking, but no other tobacco, illicit drug use or notable substance use history. Medical History Patient has no significant past medical history. Mental Status Examination General: Fair hygiene. Speech: Sparse. Thought processes: Circumstantial. MSK: Smooth and coordinated gait, no signs of tremors or involuntary orofacial m ovements Thought content: Paranoid. Abstract reasoning, and computation: Impaired. Description of associations: Impaired. Description of abnormal or psychotic thoughts: Denies any suicidal or homicidal ideation. Judgment: Impaired. Insight: Impaired. Orientation: Alert and orientated 3 Cognition: Grossly normal Recent and remote memory: Intact Attention span and concentration: Intact Fund of knowledge: Adequate Mood: "Fine." Affect: Flat with little reactivity. Diagnoses Schizophrenia. Alcohol use disorder, unspecified. Psychogenic polydipsia. Assessment and Plan The patient will be admitted to the inpatient mental health service where he can be resumed on Clozaril. Recommended continued water restriction due to psychogenic polydipsia. 939 paperwork is filled out and filed in the [facility] for his potential transfer tomorrow when we have bed availability. Schizophrenia: Increased Clozaril to 25 mg nightly. Alcohol use disorder: Unlikely to have withdrawal, last drink several weeks ago. Polydipsia: Neurology consulted, doesn't recommend antiepileptic at this time. We will continue to try to restrain water intake. Disposition The patient will need admission likely lasting longer than 2 midnights. Problem List 1. Altered thoughts. Initial Treatment Plan 1. Patient was admitted on a 9.39 legal status. 2. Complete history was obtained. 3. With patients permission, family will be contacted and database will be expanded. 4. Patients medication regimen will be reviewed and changed accordingly. 5. Patient will be provided with protected environment. 6. Patient will be treated with individual, group, and milieu therapies. 7. Patient will receive supportive psych-education. 8. Discharge planning will commence immediately. 9. Outpatient follow-up treatment will be strongly recommended. 10. The initial treatment plan will focus initially on: Estimated Length Of Stay 5 days. Time Spent 70 minutes. Vital Signs Vital Signs Date Time Temp Pulse Resp B/P (MAP) Pulse Ox O2 Delivery O2 Flow Rate FiO2 01/23/19 06:30 99.3 92 16 137/63 (87) 01/22/19 15:11 98 Room Air Laboratory Data 24H Labs Laboratory Tests 2 01/22/19 15:25: Immature Granulocyte % (Auto) 0.2, Neutrophils (%) (Auto) 50.5, Lymphocytes (%) (Auto) 28.9, Monocytes (%) (Auto) 11.9H, Eosinophils (%) (Auto) 8.0H, Basophils (%) (Auto) 0.5, Neutrophils # (Auto) 2.8, Lymphocytes # (Auto) 1.6, Monocytes # (Auto) 0.7, Eosinophils # (Auto) 0.4, Basophils # (Auto) 0.0, Nucleated Red Blood Cells % (auto) 0.0 CBC/BMP Laboratory Tests 01/22/19 15:25 Medications No Active Prescriptions or Reported Meds Allergies Coded Allergies: No Known Allergies (Unverified , 01/15/19) TINA MINAYA DO Jan 23, 2019 10:45
[2019-01-23 20:01] VITALS: BP 128/74
[2019-01-23] MEDS ORDERED: cloZAPine 25 MG TAB (S0136) PO SCH (21:00)
[2019-01-24 06:00] VITALS: BP 138/83
[2019-01-24 06:28] VITALS: BP 138/83
[2019-01-24 08:51] LABS: ALBUMIN 3.7 GM/DL (3.2-5.2); ALT/SGPT 94 U/L (12-78); BILIRUBIN,TOTAL 0.4 MG/DL (0.2-1.0); BLOOD UREA NITROGEN 10 MG/DL (7-18); CALCIUM LEVEL 9.4 MG/DL (8.5-10.1); CARBON DIOXIDE LEVEL 29 MEQ/L (21-32); CHLORIDE LEVEL 106 MEQ/L (98-107); CREATININE FOR GFR 0.93 MG/DL (0.70-1.30); GLOMERULAR FILTRATION RATE > 60.0 (>60); GLUCOSE, FASTING 85 MG/DL (70-100); POTASSIUM SERUM 4.4 MEQ/L (3.5-5.1); SODIUM LEVEL 140 MEQ/L (136-145); TOTAL PROTEIN 7.5 GM/DL (6.4-8.2)
--- NOTE | 2019-01-24 10:58 | MHIPNPDOC ---
[facility] Progress Note Progress Note Inpatient Progress Note Mike Singletary MRN: N/A Date of : N/A Date of Service: 01/24/2019 History of Present Illness The patient a 33-year-old man with a history of schizophrenia, is brought to the inpatient unit after he had received consultation on the inpatient medical floor for hyponatremia secondary to his polydipsia. The patient has been restarted on clozapine 12.5 mg when he had represented. He still has difficulty drinking excessive amounts of water despite our attempts to limit his access to water. He is still bizarre and paranoid, answering questions very tersely and concretely without any excessive amount of information given. He still seems to resist any attempts to build report or to understand his symptomatology better. The psychosocial information below is extracted from my previous assessments and updated as appropriate. Interval History The patient is met with today, although rapport building is attempted, the patient has still been fairly difficult to engage, paranoid and bizarre. He still has difficulty drinking excessive amounts of water; however, due to the water being shutoff in his room, he has had to travel across the unit in order to do so where we are able to intervene more frequently. He reports no side effects from his medication and grossly answers "yes" to almost every questions posed. He has had no major behavioral problems and otherwise has been amenable except for his excessive water drinking. Review Of Systems Denies any constipation, GI side effects, headaches, chest pain, shortness of breath or grossly any physical symptoms. Psychotherapy None on this visit. Vital Signs Reviewed. Mental Status Examination General: Fair hygiene. Speech: Sparse. Thought processes: Circumstantial. MSK: Smooth and coordinated gait, no signs of tremors or involuntary orofacial movements Thought content: Paranoid. Abstract reasoning, and computation: Impaired. Description of associations: Impaired. Description of abnormal or psychotic thoughts: Denies any suicidal or homicidal ideation. Judgment: Impaired. Insight: Impaired. Orientation: Alert and orientated 3 Cognition: Grossly normal Recent and remote memory: Intact Attention span and concentration: Intact Fund of knowledge: Adequate Mood: "Fine." Affect: Flat with little reactivity. Diagnoses Schizophrenia. Alcohol use disorder, unspecified. Psychogenic polydipsia. Assessment and Plan The patient will be admitted to the inpatient mental health service where he can be resumed on Clozaril. Recommended continued water restriction due to psychogenic polydipsia. [id number] paperwork is filled out and filed in the [facility] for his potential transfer tomorrow when we have bed availability. Schizophrenia: Increase Clozaril to 50 mg nightly. Alcohol use disorder: Unlikely to have withdrawal, last drink several weeks ago. Polydipsia: Neurology consulted, doesn't recommend antiepileptic at this time. We will continue to try to restrain water intake. Disposition The patient will need a further inpatient admission in order to treat a severely impairing psychosis and propensity for water intoxication. Time Spent 15 minutes [id number]. Sunday Vital Signs Vital Signs Date Time Temp Pulse Resp B/P (MAP) Pulse Ox O2 Delivery O2 Flow Rate FiO2 01/24/19 06:28 97.9 100 16 138/83 (101) 01/22/19 15:11 98 Room Air Laboratory Data 24H Labs Laboratory Tests 2 01/24/19 08:10: Anion Gap 5L, Glomerular Filtration Rate > 60.0, Calcium Level 9.4, Total Bilirubin 0.4, Aspartate Amino Transf (AST/SGOT) 187H, Alanine Aminotransferase (ALT/SGPT) 94H, Alkaline Phosphatase 77, Total Protein 7.5, Albumin 3.7, Albumin/Globulin Ratio 0.97L CBC/BMP Laboratory Tests 01/24/19 08:10 Current Medications Current Medications Medications (Trade) Dose Ordered Sig/Julian Route PRN Reason Start Time Stop Time Status Last Admin Dose Admin Acetaminophen (Tylenol Tab) 650 mg Q6HP PRN PO HEADACHE or DISCOMFORT 01/22/19 14:15 Al Hydrox/Mg Hydrox/Simethicone (Mylanta) 30 ml Q4HP PRN PO HEARTBURN/INDIGESTION 01/22/19 14:15 Clozapine (Clozaril) 12.5 mg QHS PO 01/22/19 21:00 01/23/19 11:04 DC Clozapine (Clozaril) 25 mg QHS PO 01/23/19 21:00 01/23/19 20:53 Magnesium Hydroxide (Milk Of Magnesia) 30 ml DAILYPRN PRN PO CONSTIPATION 01/22/19 14:15 Trazodone HCl (Desyrel) 50 mg QHSP PRN PO INSOMNIA 01/22/19 14:15 Allergies Coded Allergies: No Known Allergies (Unverified , 01/15/19) TINA MINAYA DO Jan 24, 2019 10:58
[2019-01-24 16:25] VITALS: BP 130/83
--- NOTE | 2019-01-24 17:35 | CR.PDOC ---
General Date of Consultation: Jan 23, 2019 Referring Provider: TINA MINAYA DO Consultation REASON FOR CONSULTATION/CHIEF COMPLAINT: Medical consult -- inpatient mental health HISTORY OF PRESENT ILLNESS: This is a 33 year old male with schizoaffective disorder who was admitted to 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 He had altered mental status, and a suspected but not witnessed seizure. He was admitted to the medical floor on 01/20, sodium was stabilized, and he was then transferred back to [facility] 01/22. ALLERGIES: Please see below. HOME MEDICATIONS: Please see below. PAST MEDICAL HISTORY: 1. schizoaffective disorder 2. hyponatremia 3. psychogenic polydipsia 4. suspected seizures PAST SURGICAL HISTORY: 1. right breast mass biopsy FAMILY HISTORY: Father: hyperlipidemia, HTN, IFG Mother: SOCIAL HISTORY: Marital status and/or living arrangements: single Employment: unemployed Tobacco use: none ETOH: binge drinking Other relevant social factors: Family is local REVIEW OF SYSTEMS: CONSTITUTIONAL: no fevers or chills HEENT: no vision change CARDIOVASCULAR: no chest discomfort RESPIRATORY: no cough or dyspnea MUSCULOSKELETAL: no muscle or joint pain GASTROINTESTINAL: no nausea, vomiting, diarrhea, or constipation SKIN: no rash NEUROLOGICAL: no sensory loss or dizziness PHYSICAL EXAMINATION: VITAL SIGNS: Please see below. GENERAL APPEARANCE: well-developed and well-nourished, no acute distress HEENT: mucous membranes moist, neck supple RESPIRATORY: clear to auscultation bilat CARDIOVASCULAR: regular rate and rhythm, no murmurs, rubs or gallops ABDOMEN: soft, nontender, nondistended, bowel sounds positive EXTREMITIES: no edema PSYCHIATRIC: affect blunted LABORATORY DATA: Please see below. ASSESSMENT/PLAN: 1. hyponatremia -- resolved; I have ordered daily labs for the next several day s, as his sodium levels dropped so quickly during his last hospitalization 2. psychogenic polydipsia -- recommend supervision, fluid restriction 1800 ml/24 hours 3. schizoaffective disorder -- admitted to [place], tx as per psych Vital Signs/I&O Vital Signs Date Time Temp Pulse Resp B/P (MAP) Pulse Ox O2 Delivery O2 Flow Rate FiO2 01/24/19 16:25 97.9 98 18 130/83 (99) 01/22/19 15:11 98 Room Air Laboratory Data Labs 24H Laboratory Tests 2 01/24/19 08:10: Anion Gap 5L, Glomerular Filtration Rate > 60.0, Calcium Level 9.4, Total Bilirubin 0.4, Aspartate Amino Transf (AST/SGOT) 187H, Alanine Aminotransferase (ALT/SGPT) 94H, Alkaline Phosphatase 77, Total Protein 7.5, Albumin 3.7, Albumin/Globulin Ratio 0.97L CBC/BMP Laboratory Tests 01/24/19 08:10 Allergies Coded Allergies: No Known Allergies (Unverified , 01/15/19) Home Medications No Active Prescriptions or Reported Meds OSBALDO JOLLEY DO Jan 24, 2019 17:35
[2019-01-24] MEDS: traZODone 50 MG TAB PO PRN (22:26)
[2019-01-24] MEDS: cloZAPine 25 MG TAB (S0136) PO SCH (22:27)
[2019-01-25 06:06] VITALS: BP 117/73
[2019-01-25 07:48] LABS: ALBUMIN 3.7 GM/DL (3.2-5.2); ALT/SGPT 99 U/L (12-78); BILIRUBIN,TOTAL 0.6 MG/DL (0.2-1.0); BLOOD UREA NITROGEN 10 MG/DL (7-18); CALCIUM LEVEL 9.4 MG/DL (8.5-10.1); CARBON DIOXIDE LEVEL 26 MEQ/L (21-32); CHLORIDE LEVEL 104 MEQ/L (98-107); CREATININE FOR GFR 0.95 MG/DL (0.70-1.30); GLOMERULAR FILTRATION RATE > 60.0 (>60); GLUCOSE, FASTING 94 MG/DL (70-100); SODIUM LEVEL 140 MEQ/L (136-145); TOTAL PROTEIN 7.8 GM/DL (6.4-8.2)
[2019-01-25 16:00] VITALS: BP 109/71
[2019-01-25] MEDS: LORazepam 1 MG TAB PO PRN (16:52)
--- NOTE | 2019-01-25 20:07 | MHIPNPDOC ---
[facility] Progress Note Progress Note DATE OF SERVICE: 01/25/19 HISTORY: As per Dr. Santos: "The patient a 33-year-old man with a history of schizophrenia, is brought to the inpatient unit after he had received consultation on the inpatient medical floor for hyponatremia secondary to his polydipsia. The patient has been restarted on clozapine 12.5 mg when he had represented. He still has difficulty drinking excessive amounts of water despite our attempts to limit his access to water. He is still bizarre and paranoid, answering questions very tersely and concretely without any excessive amount of information given. He still seems to resist any attempts to build report or to understand his symptomatology better." VITAL SIGNS: See below. NEW TEST RESULTS: see below CURRENT MEDICATIONS: See below. MENTAL STATUS EXAMINATION: General: Dressed in hospital clothes, not engaging Speech: Impoverished, superficial, short responses Thought processes: seems linear but he doesn't talk much, only answers yes or no MSK: No abnormal movements observed Thought content: anxious thoughts, possibly paranoid but he doesn't deny, not confirm paranoid delusions Abstract reasoning, and computation: Impaired Description of associations: Impaired Description of abnormal or psychotic thoughts: Denies any suicidal or homicidal ideation. Denies any auditory or visual hallucinations. Does not appear to be responding to internal stimuli. Judgment: Poor Insight: Poor Orientation: Alert and orientated 3 Cognition: Grossly normal Recent and remote memory: Intact Attention span and concentration: Intact Fund of knowledge: Adequate Mood: "OK" Affect: Flat/constricted DIAGNOSES: Schizoaffective disorder Alcohol use disorder Psychogenic Polydipsia ASSESSMENT: the patient has been very anxious, he has called his father several times (more than 50 times). He paces the hallways back and forth, goes to his room, lays in bed and is not engaging, is difficult to speak with him MANAGEMENT PLAN: As per Dr. Santos TIME SPENT: 15 minutes. Vital Signs Vital Signs Date Time Temp Pulse Resp B/P (MAP) Pulse Ox O2 Delivery O2 Flow Rate FiO2 01/25/19 16:00 97.3 109 17 109/71 (84) 01/22/19 15:11 98 Room Air Laboratory Data 24H Labs Laboratory Tests 2 01/25/19 07:06: Anion Gap 10, Glomerular Filtration Rate > 60.0, Calcium Level 9.4, Total Charbel irubin 0.6, Aspartate Amino Transf (AST/SGOT) 148H, Alanine Aminotransferase (ALT/SGPT) 99H, Alkaline Phosphatase 71, Total Protein 7.8, Albumin 3.7, Albumin/Globulin Ratio 0.90L CBC/BMP Laboratory Tests 01/25/19 07:06 Current Medications Current Medications Medications (Trade) Dose Ordered Sig/Julian Route PRN Reason Start Time Stop Time Status Last Admin Dose Admin Acetaminophen (Tylenol Tab) 650 mg Q6HP PRN PO HEADACHE or DISCOMFORT 01/22/19 14:15 Al Hydrox/Mg Hydrox/Simethicone (Mylanta) 30 ml Q4HP PRN PO HEARTBURN/INDIGESTION 01/22/19 14:15 Clozapine (Clozaril) 12.5 mg QHS PO 01/22/19 21:00 01/23/19 11:04 DC Clozapine (Clozaril) 25 mg QHS PO 01/23/19 21:00 01/24/19 14:05 DC 01/23/19 20:53 Clozapine (Clozaril) 50 mg QHS PO 01/24/19 21:00 01/24/19 22:27 Lorazepam (Ativan) 1 mg Q6HP PRN PO ANXIETY 01/25/19 16:45 01/25/19 16:52 Magnesium Hydroxide (Milk Of Magnesia) 30 ml DAILYPRN PRN PO CONSTIPATION 01/22/19 14:15 Trazodone HCl (Desyrel) 50 mg QHSP PRN PO INSOMNIA 01/22/19 14:15 01/24/19 22:26 Allergies Coded Allergies: No Known Allergies (Unverified , 01/15/19) SYDNEY BELLE MD Jan 25, 2019 19:58
[2019-01-25] MEDS: traZODone 50 MG TAB PO PRN (22:34)
[2019-01-25] MEDS: cloZAPine 25 MG TAB (S0136) PO SCH (22:34)
[2019-01-26 06:13] VITALS: BP 138/70
[2019-01-26 07:40] LABS: ALBUMIN 3.6 GM/DL (3.2-5.2); ALT/SGPT 87 U/L (12-78); BILIRUBIN,TOTAL 0.9 MG/DL (0.2-1.0); BLOOD UREA NITROGEN 12 MG/DL (7-18); CARBON DIOXIDE LEVEL 27 MEQ/L (21-32); CHLORIDE LEVEL 105 MEQ/L (98-107); CREATININE FOR GFR 0.98 MG/DL (0.70-1.30); GLOMERULAR FILTRATION RATE > 60.0 (>60); GLUCOSE, FASTING 88 MG/DL (70-100); POTASSIUM SERUM 3.9 MEQ/L (3.5-5.1); SODIUM LEVEL 139 MEQ/L (136-145); TOTAL PROTEIN 7.4 GM/DL (6.4-8.2)
--- NOTE | 2019-01-26 12:32 | MHIPNPDOC ---
[facility] Progress Note Progress Note Inpatient Progress Note Mike Singletary MRN: N/A Date of : N/A Date of Service: 01/26/2019 History of Present Illness The patient a 33-year-old man with a history of schizophrenia, is brought to the inpatient unit after he had received consultation on the inpatient medical floor for hyponatremia secondary to his polydipsia. The patient has been restarted on clozapine 12.5 mg when he had represented. He still has difficulty drinking excessive amounts of water despite our attempts to limit his access to water. He is still bizarre and paranoid, answering questions very tersely and concretely without any excessive amount of information given. He still seems to resist any attempts to build report or to understand his symptomatology better. The psychosocial information below is extracted from my previous assessments and updated as appropriate. Interval History The patient is attempted to be met with today, however he paces up and down the hallway refusing to meet with this provider or any other providers. He still has been getting up multiple times in order to get water and has generally been quite uninterested in engaging in any meaningful conversation, simply declining any questions, stating that he doesn't have it. He still appears quite paranoid and bizarre. He has called home close to 50 times continuing to try to find ways to elope. Review Of Systems Denies any side effects from his medication, specifically denies nausea, vomiting, bowel changes, dizziness, tremors, or any other side effects. Psychotherapy None on this visit. Vital Signs Reviewed. Mental Status Examination General: Fair hygiene. Speech: Sparse. Thought processes: Circumstantial. MSK: Restlessness, pacing up and down the hallway. Thought content: Paranoid. Abstract reasoning, and computation: Impaired. Description of associations: Impaired. Description of abnormal or psychotic thoughts: Denies any suicidal or homicidal ideation. Judgment: Impaired. Insight: Impaired. Orientation: Alert and orientated 3. Cognition: Grossly normal. Recent and remote memory: Intact. Attention span and concentration: Intact. Fund of knowledge: Adequate. Mood: "Fine." Affect: Flat with little reactivity. Diagnoses Schizophrenia. Alcohol use disorder, unspecified. Psychogenic polydipsia. Assessment and Plan Schizophrenia: Increase Clozaril to 75 mg nightly, add Abilify 2 mg nightly for augmentation as evidence supports Clozaril/Abilify combination over Invega. Attempted to discuss the risks and benefits with patient as far as able. Alcohol use disorder: Unlikely to have withdrawal, last drink several weeks ago. Polydipsia: Will continue to try to prevent patient from having open water intake. Sodium level appears to be trending normal. Disposition The patient will need a further inpatient admission in order to treat a severely impairing psychosis and propensity for water intoxication. Time Spent 15 minutes. Sunday Vital Signs Vital Signs Date Time Temp Pulse Resp B/P (MAP) Pulse Ox O2 Delivery O2 Flow Rate FiO2 01/26/19 06:13 98.0 97 18 138/70 (92) Room Air 01/22/19 15:11 98 Laboratory Data 24H Labs Laboratory Tests 2 01/26/19 06:57: Anion Gap 7L, Glomerular Filtration Rate > 60.0, Calcium Level 9.0, Total Bilirubin 0.9, Aspartate Amino Transf (AST/SGOT) 84H, Alanine Aminotransferase (ALT/SGPT) 87H, Alkaline Phosphatase 68, Total Protein 7.4, Albumin 3.6, Albumi n/Globulin Ratio 0.95L CBC/BMP Laboratory Tests 01/26/19 06:57 Current Medications Current Medications Medications (Trade) Dose Ordered Sig/Julian Route PRN Reason Start Time Stop Time Status Last Admin Dose Admin Acetaminophen (Tylenol Tab) 650 mg Q6HP PRN PO HEADACHE or DISCOMFORT 01/22/19 14:15 Al Hydrox/Mg Hydrox/Simethicone (Mylanta) 30 ml Q4HP PRN PO HEARTBURN/INDIGESTION 01/22/19 14:15 Clozapine (Clozaril) 12.5 mg QHS PO 01/22/19 21:00 01/23/19 11:04 DC Clozapine (Clozaril) 25 mg QHS PO 01/23/19 21:00 01/24/19 14:05 DC 01/23/19 20:53 Clozapine (Clozaril) 50 mg QHS PO 01/24/19 21:00 01/25/19 22:34 Lorazepam (Ativan) 1 mg Q6HP PRN PO ANXIETY 01/25/19 16:45 01/25/19 16:52 Magnesium Hydroxide (Milk Of Magnesia) 30 ml DAILYPRN PRN PO CONSTIPATION 01/22/19 14:15 Trazodone HCl (Desyrel) 50 mg QHSP PRN PO INSOMNIA 01/22/19 14:15 01/25/19 22:34 Allergies Coded Allergies: No Known Allergies (Unverified , 01/15/19) TINA MINAYA DO Jan 26, 2019 12:32
[2019-01-26 16:00] VITALS: BP 118/83
[2019-01-26] MEDS ORDERED: cloZAPine 25 MG TAB (S0136) PO SCH (21:00)
[2019-01-26] MEDS: ARIPiprazole 2 MG TAB PO SCH (21:11)
[2019-01-26] MEDS: traZODone 50 MG TAB PO PRN (22:02)
[2019-01-26] MEDS: LORazepam 1 MG TAB PO PRN (22:02)
[2019-01-27 06:03] VITALS: BP 128/96
--- NOTE | 2019-01-27 10:12 | MHIPNPDOC ---
[facility] Progress Note Progress Note Inpatient Progress Note Mike Singletary MRN: N/A Date of : N/A Date of Service: 01/27/2019 History of Present Illness The patient a 33-year-old man with a history of schizophrenia, is brought to the inpatient unit after he had received consultation on the inpatient medical floor for hyponatremia secondary to his polydipsia. The patient has been restarted on clozapine 12.5 mg when he had represented. He still has difficulty drinking excessive amounts of water despite our attempts to limit his access to water. He is still bizarre and paranoid, answering questions very tersely and concretely without any excessive amount of information given. He still seems to resist any attempts to build report or to understand his symptomatology better. Interval History The patient is attempted to be met with today, however, he is still quite paranoid, walking up and down the hallways, avoiding any conversation. He continues to focus on being discharged, saying that "I want you to put the discharge order in. After emphasis that he is not ready, he continues to make calls to his father saying that he is being discharged. He only answers a few questions before walking away. Attempted to ascertain whether he is having any side effects or restlessness. He still has significant thirst and has been getting up multiple different times this past evening in order to get water. When asked he states that he has quite a bit of thirst. Denying any overt restlessness. He has had difficulty as he has continued to use his bathroom, even though the water has been discontinued. Further he needed to be placed on a 1-1 in order to attempt to constrain his water intake as his sodium has been normal, although today he has refused his laboratory blood work. Review Of Systems Denies any restlessness, GI, upset, nausea, vomiting, constipation. Denies any fevers or headaches. Psychotherapy None on this visit. Vital Signs Reviewed. Mental Status Examination General: Fair hygiene. Speech: Sparse. Thought processes: Circumstantial. MSK: Restlessness, pacing up and down the hallway. Thought content: Paranoid. Abstract reasoning, and computation: Impaired. Description of associations: Impaired. Description of abnormal or psychotic thoughts: Denies any suicidal or homicidal ideation. Judgment: Impaired. Insight: Impaired. Orientation: Alert and orientated 3. Cognition: Grossly normal. Recent and remote memory: Intact. Attention span and concentration: Intact. Fund of knowledge: Adequate. Mood: "Fine." Affect: Flat with little reactivity. Diagnoses Schizophrenia. Alcohol use disorder, unspecified. Psychogenic polydipsia. Assessment and Plan Schizophrenia: Increase Clozaril to 100 mg nightly, continue Abilify 2 mg nightly. Will attempt to order ANC when patient is cooperative. Alcohol use disorder: Unlikely to have withdrawal, last drink several weeks ago. Polydipsia: Will continue to try to prevent patient from having open water intake. Sodium level appears to be trending normal. Disposition The patient will need a further inpatient admission in order to treat a severely impairing psychosis and propensity for water intoxication. Time Spent 15 minutes [id number]. Sunday Vital Signs Vital Signs Date Time Temp Pulse Resp B/P (MAP) Pulse Ox O2 Delivery O2 Flow Rate FiO2 01/27/19 06:03 97.8 130 14 128/96 (107) Room Air 01/22/19 15:11 98 Current Medications Current Medications Medications (Trade) Dose Ordered Sig/Julian Route PRN Reason Start Time Stop Time Status Last Admin Dose Admin Acetaminophen (Tylenol Tab) 650 mg Q6HP PRN PO HEADACHE or DISCOMFORT 01/22/19 14:15 Al Hydrox/Mg Hydrox/Simethicone (Mylanta) 30 ml Q4HP PRN PO HEARTBURN/INDIGESTION 01/22/19 14:15 Aripiprazole (AbiLIFY) 2 mg QHS PO 01/26/19 21:00 01/26/19 21:11 Clozapine (Clozaril) 12.5 mg QHS PO 01/22/19 21:00 01/23/19 11:04 DC Clozapine (Clozaril) 25 mg QHS PO 01/23/19 21:00 01/24/19 14:05 DC 01/23/19 20:53 Clozapine (Clozaril) 50 mg QHS PO 01/24/19 21:00 01/26/19 13:26 DC 01/25/19 22:34 Clozapine (Clozaril) 75 mg QHS PO 01/26/19 21:00 01/26/19 21:11 Lorazepam (Ativan) 1 mg Q6HP PRN PO ANXIETY 01/25/19 16:45 01/26/19 22:02 Magnesium Hydroxide (Milk Of Magnesia) 30 ml DAILYPRN PRN PO CONSTIPATION 01/22/19 14:15 Trazodone HCl (Desyrel) 50 mg QHSP PRN PO INSOMNIA 01/22/19 14:15 01/26/19 22:02 Allergies Coded Allergies: No Known Allergies (Unverified , 01/15/19) TINA MINAYA DO Jan 27, 2019 10:12
[2019-01-27 16:54] VITALS: BP 130/80
[2019-01-27] MEDS: cloZAPine 100 MG TAB (S0136) PO SCH (21:00)
[2019-01-27] MEDS: ARIPiprazole 2 MG TAB PO SCH (21:00)
[2019-01-28 06:38] VITALS: BP 131/61
[2019-01-28 08:45] LABS: ALBUMIN 3.6 GM/DL (3.2-5.2); ALT/SGPT 63 U/L (12-78); BILIRUBIN,TOTAL 0.5 MG/DL (0.2-1.0); BLOOD UREA NITROGEN 15 MG/DL (7-18); CALCIUM LEVEL 8.9 MG/DL (8.5-10.1); CARBON DIOXIDE LEVEL 25 MEQ/L (21-32); CHLORIDE LEVEL 110 MEQ/L (98-107); CREATININE FOR GFR 0.97 MG/DL (0.70-1.30); GLOMERULAR FILTRATION RATE > 60.0 (>60); GLUCOSE, FASTING 80 MG/DL (70-100); SODIUM LEVEL 143 MEQ/L (136-145)
--- NOTE | 2019-01-28 11:12 | MHIPNPDOC ---
[facility] Progress Note Progress Note Inpatient Progress Note Mike Singletary MRN: N/A Date of : N/A Date of Service: 01/28/2019 History of Present Illness 33-year-old man with a history of schizophrenia with severe noncompliance resulting in a new psychotic episode. He has significant polydipsia and has required medical treatment on this presentation due to seizures. Interval History The patient is attempted to be met with, however, he is still quite bizarre, pacing back and forth, has refused to take his medications last night and is unable to offer any reason as to why. He denies any side effects from his medications, simply answering yes to all my questions. He continues to remain confused and on a one-to-one sitter that is to prevent him from imbibing too much water as he is allowed water on a regular basis in order to prevent him from over drinking. The patient still is bizarre and paranoid, stating that he is "being discharged" as he continues to walk up and down the hallway. He is unable to cooperate with even the most basic interview. Review Of Systems Denies any side effects grossly. Psychotherapy None on this visit. Vital Signs Reviewed. Mental Status Examination General: Fair hygiene. Speech: Sparse. Thought processes: Circumstantial. MSK: Restlessness, pacing up and down the hallway. Thought content: Paranoid. Abstract reasoning, and computation: Impaired. Description of associations: Impaired. Description of abnormal or psychotic thoughts: Denies any suicidal or homicidal ideation. Judgment: Impaired. Insight: Impaired. Orientation: Alert and orientated 3. Cognition: Grossly normal. Recent and remote memory: Intact. Attention span and concentration: Intact. Fund of knowledge: Adequate. Mood: "Fine." Affect: Flat with little reactivity. Diagnoses Schizophrenia. Alcohol use disorder, unspecified. Psychogenic polydipsia. Assessment and Plan Schizophrenia: Continue Clozaril 100 mg nightly. Will need to continue to offer medications. Treatment over objection might be necessary. Alcohol use disorder: Unlikely to have withdrawal, last drink several weeks ago. Polydipsia: Will continue to try to prevent patient from having open water intake. Sodium level appears to be trending normal. Disposition The patient will need a further inpatient admission in order to treat a severely impairing psychosis and propensity for water intoxication. Time Spent 15 minutes [id number]. Jaz Vital Signs Vital Signs Date Time Temp Pulse Resp B/P (MAP) Pulse Ox O2 Delivery O2 Flow Rate FiO2 01/28/19 06:38 97.9 75 14 131/61 (84) 01/27/19 06:03 Room Air 01/22/19 15:11 98 Laboratory Data 24H Labs Laboratory Tests 2 01/28/19 07:51: Anion Gap 8, Glomerular Filtration Rate > 60.0, Calcium Level 8.9, Total Bilirubin 0.5, Aspartate Amino Transf (AST/SGOT) 36, Alanine Aminotransferase (ALT/SGPT) 63, Alkaline Phosphatase 85, Total Protein 7.0, Albumin 3.6, Albumin /Globulin Ratio 1.06 CBC/BMP Laboratory Tests 01/28/19 07:51 Current Medications Current Medications Medications (Trade) Dose Ordered Sig/Julian Route PRN Reason Start Time Stop Time Status Last Admin Dose Admin Acetaminophen (Tylenol Tab) 650 mg Q6HP PRN PO HEADACHE or DISCOMFORT 01/22/19 14:15 Al Hydrox/Mg Hydrox/Simethicone (Mylanta) 30 ml Q4HP PRN PO HEARTBURN/INDIGESTION 01/22/19 14:15 Aripiprazole (AbiLIFY) 2 mg QHS PO 01/26/19 21:00 01/26/19 21:11 Clozapine (Clozaril) 12.5 mg QHS PO 01/22/19 21:00 01/23/19 11:04 DC Clozapine (Clozaril) 25 mg QHS PO 01/23/19 21:00 01/24/19 14:05 DC 01/23/19 20:53 Clozapine (Clozaril) 50 mg QHS PO 01/24/19 21:00 01/26/19 13:26 DC 01/25/19 22:34 Clozapine (Clozaril) 75 mg QHS PO 01/26/19 21:00 01/27/19 13:04 DC 01/26/19 21:11 Clozapine (Clozaril) 100 mg QHS PO 01/27/19 21:00 Lorazepam (Ativan) 1 mg Q6HP PRN PO ANXIETY 01/25/19 16:45 01/26/19 22:02 Magnesium Hydroxide (Milk Of Magnesia) 30 ml DAILYPRN PRN PO CONSTIPATION 01/22/19 14:15 Trazodone HCl (Desyrel) 50 mg QHSP PRN PO INSOMNIA 01/22/19 14:15 01/26/19 22:02 Allergies Coded Allergies: No Known Allergies (Unverified , 01/15/19) TINA MINAYA DO Jan 28, 2019 11:12
[2019-01-28] MEDS: ARIPiprazole 2 MG TAB PO SCH (20:39)
[2019-01-28] MEDS: cloZAPine 100 MG TAB (S0136) PO SCH (20:39)
--- NOTE | 2019-01-29 12:05 | MHIPNPDOC ---
[facility] Progress Note Progress Note Inpatient Progress Note Mike Singletary MRN: N/A Date of : N/A Date of Service: 01/29/2019 History of Present Illness 33-year-old man with a history of schizophrenia with severe noncompliance resulting in a new psychotic episode. He has significant polydipsia and has required medical treatment on this presentation due to seizures. Interval History Patient is attempted to be met with today, however, he will not meet with me walks away bizarrely. He has been increasingly more agitated, pacing. He needs significant amount of effort in order to be on the one-to-one. We have attempted to constraint his water access, although he has drunken a large amount of fluids in a very small amount of time. He has taken his Clozaril as of last night. Review Of Systems Declines to answer. Psychotherapy None on this visit. Vital Signs Reviewed. Mental Status Examination General: Fair hygiene. Speech: Sparse. Thought processes: Circumstantial. MSK: Restlessness, pacing up and down the hallway. Thought content: Paranoid. Abstract reasoning, and computation: Impaired. Description of associations: Impaired. Description of abnormal or psychotic thoughts: Denies any suicidal or homicidal ideation. Judgment: Impaired. Insight: Impaired. Orientation: Alert and orientated 3. Cognition: Grossly normal. Recent and remote memory: Intact. Attention span and concentration: Intact. Fund of knowledge: Adequate. Mood: "Fine." Affect: Flat with little reactivity. Diagnoses Schizophrenia. Alcohol use disorder, unspecified. Psychogenic polydipsia. Assessment and Plan Schizophrenia: Increase Clozaril to 150 mg nightly. Continue Abilify. We will increase to 5 mg nightly. CBC ordered for ANC calculation. Alcohol use disorder: Unlikely to have withdrawal, last drink several weeks ago. Polydipsia: Will continue to try to prevent patient from having open water intake. Sodium level appears to be trending normal. Disposition The patient will need a further inpatient admission in order to treat a severely impairing psychosis and propensity for water intoxication. We will refer for [facility] and referral to [facility]. Time Spent 15 minutes. Sunday Vital Signs Vital Signs Date Time Temp Pulse Resp B/P (MAP) Pulse Ox O2 Delivery O2 Flow Rate FiO2 01/28/19 06:38 97.9 75 14 131/61 (84) 01/27/19 06:03 Room Air Current Medications Current Medications Medications (Trade) Dose Ordered Sig/Julian Route PRN Reason Start Time Stop Time Status Last Admin Dose Admin Acetaminophen (Tylenol Tab) 650 mg Q6HP PRN PO HEADACHE or DISCOMFORT 01/22/19 14:15 Al Hydrox/Mg Hydrox/Simethicone (Mylanta) 30 ml Q4HP PRN PO HEARTBURN/INDIGESTION 01/22/19 14:15 Aripiprazole (AbiLIFY) 2 mg QHS PO 01/26/19 21:00 01/28/19 20:39 Clozapine (Clozaril) 12.5 mg QHS PO 01/22/19 21:00 01/23/19 11:04 DC Clozapine (Clozaril) 25 mg QHS PO 01/23/19 21:00 01/24/19 14:05 DC 01/23/19 20:53 Clozapine (Clozaril) 50 mg QHS PO 01/24/19 21:00 01/26/19 13:26 DC 01/25/19 22:34 Clozapine (Clozaril) 75 mg QHS PO 01/26/19 21:00 01/27/19 13:04 DC 01/26/19 21:11 Clozapine (Clozaril) 100 mg QHS PO 01/27/19 21:00 01/28/19 20:39 Lorazepam (Ativan) 1 mg Q6HP PRN PO ANXIETY 01/25/19 16:45 01/26/19 22:02 Magnesium Hydroxide (Milk Of Magnesia) 30 ml DAILYPRN PRN PO CONSTIPATION 01/22/19 14:15 Trazodone HCl (Desyrel) 50 mg QHSP PRN PO INSOMNIA 01/22/19 14:15 01/26/19 22:02 Allergies Coded Allergies: No Known Allergies (Unverified , 01/15/19) TINA MINAYA DO Jan 29, 2019 12:05
[2019-01-29 16:49] VITALS: BP 110/80
[2019-01-29] MEDS: ARIPiprazole 2 MG TAB PO SCH (20:43)
[2019-01-29] MEDS: cloZAPine 100 MG TAB (S0136) PO SCH (20:43)
[2019-01-30 06:17] VITALS: BP 136/72
[2019-01-30 07:38] LABS: ALBUMIN 3.4 GM/DL (3.2-5.2); ALT/SGPT 47 U/L (12-78); BILIRUBIN,TOTAL 0.3 MG/DL (0.2-1.0); BLOOD UREA NITROGEN 13 MG/DL (7-18); CALCIUM LEVEL 8.5 MG/DL (8.5-10.1); CARBON DIOXIDE LEVEL 27 MEQ/L (21-32); CHLORIDE LEVEL 110 MEQ/L (98-107); CREATININE FOR GFR 0.87 MG/DL (0.70-1.30); GLOMERULAR FILTRATION RATE > 60.0 (>60); GLUCOSE, FASTING 89 MG/DL (70-100); SODIUM LEVEL 141 MEQ/L (136-145); TOTAL PROTEIN 6.8 GM/DL (6.4-8.2)
--- NOTE | 2019-01-30 10:23 | MHIPNPDOC ---
[facility] Progress Note Progress Note Inpatient Progress Note Mike Singletary MRN: N/A Date of : N/A Date of Service: 01/30/2019 History of Present Illness 33-year-old man with a history of schizophrenia with severe noncompliance resulting in a new psychotic episode. He has significant polydipsia and has required medical treatment on this presentation due to seizures. Interval History The patient is attempted to be met wet today, however, the patient has been notably bizarre, paranoid, simply saying "yes" to everything even in contradictory statements. They definitely notes him to be bizarre. He continues to be on a 1-1 sitter as he attempts to buy the significant amounts of water. His labs have been normal indicating that he is not able to engage in enough psychogenic polydipsia to get water poisoning. He has denied any side effects from his medications and has been very ambivalent and almost paranoid about talking to any treatment provider. He attempted to have a meeting with [facility], however, he was too psychotic and disorganized in order to effectively participate in it. He has had no overnight agitation episodes and has been compliant with his medications so far. Review Of Systems Cardiovascular: Denies Chest pain or palpitations GI: Denies Nausea, vomiting, or bowel changes Respiratory: Denies shortness of breath or cough Neuro: Denies dizziness, tremors Psychotherapy None on this visit. Vital Signs Reviewed. Mental Status Examination General: Fair hygiene. Speech: Sparse. Thought processes: Circumstantial. MSK: Severe restlessness, pacing up and down the hallway. Thought content: Paranoid. Abstract reasoning, and computation: Impaired. Description of associations: Impaired. Description of abnormal or psychotic thoughts: Denies any suicidal or homicidal ideation. Judgment: Impaired. Insight: Impaired. Orientation: Alert and orientated 3. Cognition: Grossly normal. Recent and remote memory: Intact. Attention span and concentration: Intact. Fund of knowledge: Adequate. Mood: "great." Affect: Flat with little reactivity. Diagnoses Schizophrenia. Alcohol use disorder, unspecified. Psychogenic polydipsia. Assessment and Plan Schizophrenia: Continue Clozaril 150 mg nightly and Abilify 5 mg nightly. We will increase to 5 mg nightly. CBC ordered for ANC calculation. Alcohol use disorder: Unlikely to have withdrawal, last drink several weeks ago. Polydipsia: Will continue to try to prevent patient from having open water intake. Sodium level appears to be trending normal. Disposition The patient will need a further inpatient admission in order to treat a severely impairing psychosis and propensity for water intoxication. We will refer for C and referral to [facility]. Time Spent 15 minutes. Vital Signs Vital Signs Date Time Temp Pulse Resp B/P (MAP) Pulse Ox O2 Delivery O2 Flow Rate FiO2 01/30/19 06:17 98.3 83 18 136/72 (93) 01/27/19 06:03 Room Air Laboratory Data 24H Labs Laboratory Tests 2 01/30/19 06:36: Anion Gap 4L, Glomerular Filtration Rate > 60.0, Calcium Level 8.5, Total Bilirubin 0.3, Aspartate Amino Transf (AST/SGOT) 26, Alanine Aminotransferase (ALT/SGPT) 47, Alkaline Phosphatase 77, Total Protein 6.8, Albumin 3.4, Albumin/ Globulin Ratio 1.00 CBC/BMP Laboratory Tests 01/30/19 06:36 Current Medications Current Medications Medications (Trade) Dose Ordered Sig/Julian Route PRN Reason Start Time Stop Time Status Last Admin Dose Admin Acetaminophen (Tylenol Tab) 650 mg Q6HP PRN PO HEADACHE or DISCOMFORT 01/22/19 14:15 Al Hydrox/Mg Hydrox/Simethicone (Mylanta) 30 ml Q4HP PRN PO HEARTBURN/INDIGESTION 01/22/19 14:15 Aripiprazole (AbiLIFY) 2 mg QHS PO 01/26/19 21:00 01/29/19 20:43 Clozapine (Clozaril) 12.5 mg QHS PO 01/22/19 21:00 01/23/19 11:04 DC Clozapine (Clozaril) 25 mg QHS PO 01/23/19 21:00 01/24/19 14:05 DC 01/23/19 20:53 Clozapine (Clozaril) 50 mg QHS PO 01/24/19 21:00 01/26/19 13:26 DC 01/25/19 22:34 Clozapine (Clozaril) 75 mg QHS PO 01/26/19 21:00 01/27/19 13:04 DC 01/26/19 21:11 Clozapine (Clozaril) 100 mg QHS PO 01/27/19 21:00 01/29/19 20:43 Lorazepam (Ativan) 1 mg Q6HP PRN PO ANXIETY 12/14/19 16:45 01/26/19 22:02 Magnesium Hydroxide (Milk Of Magnesia) 30 ml DAILYPRN PRN PO CONSTIPATION 01/22/19 14:15 Trazodone HCl (Desyrel) 50 mg QHSP PRN PO INSOMNIA 01/22/19 14:15 01/26/19 22:02 Allergies Coded Allergies: No Known Allergies (Unverified , 01/15/19) TINA MINAYA DO Jan 30, 2019 10:23
[2019-01-30 11:50] LABS: BASO % 0.8 % (0.0-1.0); EOS # 0.3 10^3/uL (0.0-0.5); EOS % 5.6 % (0.0-3.0); HEMATOCRIT 42.1 % (42.0-52.0); HEMOGLOBIN 13.8 g/dl (13.5-17.5); LYMPH # 1.6 10^3/uL (1.5-5.0); LYMPH % 30.8 % (24.0-44.0); MEAN CORPUSCULAR HEMOGLOBIN 29.5 pg (27.0-33.0); MEAN CORPUSCULAR HGB CONC 32.8 g/dl (32.0-36.5); MONO # 0.5 10^3/uL (0.0-0.8); MONO % 10.3 % (0.0-5.0); NEUTROPHILS # 2.7 10^3/uL (1.5-8.5); NEUTROPHILS % 52.5 % (36.0-66.0); PLATELET COUNT, AUTOMATED 357 10^3/uL (150-450); RED BLOOD COUNT 4.68 10^6/uL (4.30-6.10)
[2019-01-30 16:49] VITALS: BP 127/69
[2019-01-30] MEDS: cloZAPine 100 MG TAB (S0136) PO SCH (20:41)
[2019-01-31 06:22] VITALS: BP 125/59
--- NOTE | 2019-01-31 09:22 | MHIPNPDOC ---
[facility] Progress Note Progress Note Inpatient Progress Note Mike Singletary MRN: N/A Date of : N/A Date of Service: 01/31/2019 History of Present Illness 33-year-old man with a history of schizophrenia with severe noncompliance resulting in a new psychotic episode. He has significant polydipsia and has required medical treatment on this presentation due to seizures. Interval History The patient is met with today. He is still bizarre, paranoid, continues on a one to one, but has not been able to take in sufficient water in order to poison himself. He still has bizarre moments where he will do sit-ups alternating between pacing up and down the hallway. He has had no aggression against anyone, but has declined to meet with many providers. I met with him today where he entertained some of my conversation attempting to understand if he had any side effects from his Clozaril or whether it is helpful; however, he defers to stating "everything is okay and great" without any significant change. The majority of the interview appears generally meaningless as he only responds with "yes" and at times will giggle if I catch him in a unusual situation saying yes. He has not attended groups and generally remains isolative to his room. I attempted a review of systems; however, it appears unreliable. Review Of Systems The patient denies any constipation, GI upset, nausea, vomiting, chest pain, shortness of breath, rashes, bleeding, bruising, fevers, or appetite changes, continues to report thirst, bowel movements appear to be normal in frequency per his report. Psychotherapy None on this visit. Vital Signs Reviewed. Mental Status Examination General: Fair hygiene. Speech: Sparse. Thought processes: Circumstantial. MSK: Severe restlessness, pacing up and down the hallway. Thought content: Paranoid. Abstract reasoning, and computation: Impaired. Description of associations: Impaired. Description of abnormal or psychotic thoughts: Denies any suicidal or homicidal ideation. Judgment: Impaired. Insight: Impaired. Orientation: Alert and orientated 3. Cognition: Grossly normal. Recent and remote memory: Intact. Attention span and concentration: Intact. Fund of knowledge: Adequate. Mood: "great." Affect: Flat with little reactivity. Diagnoses Schizophrenia. Alcohol use disorder, unspecified. Psychogenic polydipsia. Assessment and Plan Schizophrenia: Increase Clozaril to 150 mg/25 mg PM and AM with Abilify 5 mg QHS. ANC is normal. Alcohol use disorder: Unlikely to have withdrawal, last drink several weeks ago. Polydipsia: Will continue to try to prevent patient from having open water intake. Sodium level appears to be trending normal. Disposition The patient will need a further inpatient admission in order to treat a severely impairing psychosis and propensity for water intoxication. We will refer for [facility] and referral to [facility]. Time Spent 15 minutes [id number]. Sunday Vital Signs Vital Signs Date Time Temp Pulse Resp B/P (MAP) Pulse Ox O2 Delivery O2 Flow Rate FiO2 01/31/19 06:22 98.9 80 18 125/59 (81) 01/27/19 06:03 Room Air Laboratory Data 24H Labs Laboratory Tests 2 01/30/19 11:23: Immature Granulocyte % (Auto) 0.0, Neutrophils (%) (Auto) 52.5, Lymphocytes (%) (Auto) 30.8, Monocytes (%) (Auto) 10.3H, Eosinophils (%) (Auto) 5.6H, Basophils (%) (Auto) 0.8, Neutrophils # (Auto) 2.7, Lymphocytes # (Auto) 1.6, Monocytes # (Auto) 0.5, Eosinophils # (Auto) 0.3, Basophils # (Auto) 0.0, Nucleated Red Blood Cells % (auto) 0.0 CBC/BMP Laboratory Tests 01/30/19 11:23 Current Medications Current Medications Medications (Trade) Dose Ordered Sig/Julian Route PRN Reason Start Time Stop Time Status Last Admin Dose Admin Acetaminophen (Tylenol Tab) 650 mg Q6HP PRN PO HEADACHE or DISCOMFORT 01/22/19 14:15 Al Hydrox/Mg Hydrox/Simethicone (Mylanta) 30 ml Q4HP PRN PO HEARTBURN/INDIGESTION 01/22/19 14:15 Aripiprazole (AbiLIFY) 2 mg QHS PO 01/26/19 21:00 01/30/19 11:04 DC 01/29/19 20:43 Aripiprazole (AbiLIFY) 5 mg QHS PO 01/30/19 21:00 01/30/19 20:42 Clozapine (Clozaril) 12.5 mg QHS PO 01/22/19 21:00 01/23/19 11:04 DC Clozapine (Clozaril) 25 mg QHS PO 01/23/19 21:00 01/24/19 14:05 DC 01/23/19 20:53 Clozapine (Clozaril) 50 mg QHS PO 01/24/19 21:00 01/26/19 13:26 DC 01/25/19 22:34 Clozapine (Clozaril) 75 mg QHS PO 01/26/19 21:00 01/27/19 13:04 DC 01/26/19 21:11 Clozapine (Clozaril) 100 mg QHS PO 01/27/19 21:00 01/30/19 11:04 DC 01/29/19 20:43 Clozapine (Clozaril) 150 mg QHS PO 01/30/19 21:00 01/30/19 20:41 Lorazepam (Ativan) 1 mg Q6HP PRN PO ANXIETY 01/25/19 16:45 01/26/19 22:02 Magnesium Hydroxide (Milk Of Magnesia) 30 ml DAILYPRN PRN PO CONSTIPATION 01/22/19 14:15 Trazodone HCl (Desyrel) 50 mg QHSP PRN PO INSOMNIA 01/22/19 14:15 01/26/19 22:02 Allergies Coded Allergies: No Known Allergies (Unverified , 01/15/19) TINA MINAYA DO Jan 31, 2019 09:22
[2019-01-31] MEDS: cloZAPine 25 MG TAB (S0136) PO SCH (12:34)
[2019-01-31 16:10] VITALS: BP 138/86
[2019-01-31] MEDS: cloZAPine 100 MG TAB (S0136) PO SCH (21:53)
[2019-02-01 06:41] VITALS: BP 152/80
[2019-02-01] MEDS: cloZAPine 25 MG TAB (S0136) PO SCH (08:12)
[2019-02-01 16:02] VITALS: BP 135/83
[2019-02-01] MEDS: cloZAPine 100 MG TAB (S0136) PO SCH (22:35)
[2019-02-02] MEDS: cloZAPine 25 MG TAB (S0136) PO SCH (08:21)
[2019-02-02 15:48] VITALS: BP 134/82
[2019-02-02] MEDS: cloZAPine 100 MG TAB (S0136) PO SCH (21:00)
[2019-02-03 06:43] VITALS: BP 122/82
[2019-02-03 06:49] VITALS: BP 159/65
[2019-02-03] MEDS: cloZAPine 25 MG TAB (S0136) PO SCH (09:30)
[2019-02-03] MEDS: LORazepam 1 MG TAB PO PRN (10:58)
[2019-02-03 16:50] VITALS: BP 134/94
[2019-02-03] MEDS: cloZAPine 100 MG TAB (S0136) PO SCH (21:14)
[2019-02-04 08:15] LABS: BLOOD UREA NITROGEN 16 MG/DL (7-18); CALCIUM LEVEL 8.7 MG/DL (8.5-10.1); CARBON DIOXIDE LEVEL 24 MEQ/L (21-32); CHLORIDE LEVEL 108 MEQ/L (98-107); CREATININE FOR GFR 0.92 MG/DL (0.70-1.30); GLOMERULAR FILTRATION RATE > 60.0 (>60); GLUCOSE, FASTING 81 MG/DL (70-100); POTASSIUM SERUM 4.3 MEQ/L (3.5-5.1); SODIUM LEVEL 138 MEQ/L (136-145)
[2019-02-04] MEDS: LORazepam 1 MG TAB PO PRN (08:56)
[2019-02-04] MEDS: cloZAPine 25 MG TAB (S0136) PO SCH (08:56)
--- NOTE | 2019-02-04 10:26 | MHIPN ---
DATE: 02/03/2019 VITAL SIGNS: Temperature 98.0, pulse 91, respirations 16, blood pressure 159/65. CURRENT MEDICATIONS: - Clozaril 25 mg every morning - Abilify 5 mg at bedtime, patient refusing - clozapine 150 mg at bedtime, patient refused last nights dosage - trazodone 50 mg at bedtime as needed HISTORY OF PRESENT ILLNESS: This is a 33-year-old white male seen with one on one supervision today. The patient is unable to give me his age. The patient is a poor historian. He has severe thought disorder with though blocking. He has episodic complaints with his antipsychotics. The patient is calling his family constantly, harassing them, demanding to return home. The patient has been imbibing large amount of water. The patient had a seizure with hyponatremia. The patient's water and fluid consumption is now being monitored closely and is on one on one supervision. The patient's family is quite supportive. The patient was quite agitated this morning. After receiving an as needed dose of Ativan his behavior improved markedly. MENTAL STATUS EXAMINATION: The patient appears alert, but unable to assess patient due to lack of cooperation. The patient is often nonresponsive. The patient shows signs of thought disorder. He appears quite paranoid and guarded. He denies auditory hallucinations, but is likely covering. Insight and judgment are quite impaired. The patient appears impulsive and a potential danger to himself and/or others. 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 DIAGNOSES: Schizophrenia. Alcohol use disorder, unspecified. Psychogenic polydipsia. PLAN: Increase Clozaril to 50 mg every morning. Obtain chem survey to assess for any signs of hyponatremia. Obtain clozapine level. Continue one on one supervision for his own safety.
--- NOTE | 2019-02-04 14:05 | MHIPN ---
DATE: 02/04/2019 VITAL SIGNS: Temperature 99.2, pulse 92, respirations 20, blood pressure 134/94. CURRENT MEDICATIONS: - Clozaril 50 mg every morning - Ativan 1 mg every four hours as needed - Abilify 5 mg at bedtime - Clozaril 150 mg at bedtime - trazodone 50 mg at bedtime as needed HISTORY OF PRESENT ILLNESS: The patient did respond to an as-needed dose of Ativan yesterday. Staff report he was less agitated. He is still under one-to-one supervision due to his water consumption. He is also on restricted status for phone contacts. He is coping with this reasonably well. He does report to staff that he is feeling afraid but will not go into any details about any delusional beliefs. He states his appetite is fine. He reports sleeping well at night. He was cooperative with the clozapine last night fortunately. He is willing to get clozapine blood level tomorrow morning. Family visits frequently. MENTAL STATUS EXAMINATION: The patient appears alert and fairly cooperative. He verbalized minimally. The patient still appears paranoid and guarded. He denies hearing voices but appears to be responding to internal stimuli. Insight and judgment are still impaired. No signs of cognitive deficits. ASSESSMENT: The patient has treatment of resistant psychosis. He is tolerating low-dose Ativan well. DIAGNOSES: 1. Schizophrenia. 2. Alcohol use disorder, unspecified. 3. Psychogenic polydipsia. PLAN: Obtain Clozaril level. Continue one-on-one supervision for his own safety.
[2019-02-04 16:19] VITALS: BP 119/69
[2019-02-04] MEDS: cloZAPine 100 MG TAB (S0136) PO SCH (21:31)
[2019-02-04] MEDS: PILL CUTTER 1 EACH XX PRN (21:31)
[2019-02-05 06:31] VITALS: BP 142/82
[2019-02-05] MEDS: cloZAPine 25 MG TAB (S0136) PO SCH (08:47)
[2019-02-05 11:33] LABS: BLOOD UREA NITROGEN 14 MG/DL (7-18); CALCIUM LEVEL 9.1 MG/DL (8.5-10.1); CARBON DIOXIDE LEVEL 26 MEQ/L (21-32); CHLORIDE LEVEL 107 MEQ/L (98-107); CREATININE FOR GFR 0.91 MG/DL (0.70-1.30); GLOMERULAR FILTRATION RATE > 60.0 (>60); GLUCOSE, FASTING 92 MG/DL (70-100); POTASSIUM SERUM 4.2 MEQ/L (3.5-5.1); SODIUM LEVEL 141 MEQ/L (136-145)
[2019-02-05 16:40] VITALS: BP 136/82
[2019-02-05] MEDS: cloZAPine 100 MG TAB (S0136) PO SCH (21:44)
[2019-02-06 06:29] VITALS: BP 162/92
[2019-02-06] MEDS: cloZAPine 25 MG TAB (S0136) PO SCH (08:22)
--- NOTE | 2019-02-06 16:00 | MHIPN ---
DATE: 02/06/2019 VITAL SIGNS: Temperature 98.2, pulse 77, respirations 16, blood pressure 162/92. CURRENT MEDICATIONS: - Clozaril 50 mg in the morning - Abilify 5 mg at night - clozapine 150 mg at night - trazodone 50 mg at night as needed, last taken 01/26/2019 HISTORY OF PRESENT ILLNESS: The patient has been more compliant with his bedtime Clozaril dosage. The patient did cooperate with getting a Clozaril blood level yesterday, results are pending. The patient is resting comfortably in his bed. Eye contact is poor. He does appear quite paranoid and guarded. He denies hearing any voices. He denies any and all problems. He admits that his father visited yesterday and that the visit went fine. The staff report that the patient threw his father out and refused to have any contact with him yesterday. The patient states that his appetite is good. He is sleeping well with his medication. He has no other complaints. The patient is still on one to one supervision due to his psychogenic polydipsia, the patient's most recent blood tests showed no signs of hyponatremia. MENTAL STATUS EXAMINATION: The patient is alert, fairly cooperative though still quite guarded and paranoid. He volunteers little. He denies hearing voices but is likely responding to internal stimuli. Insight and judgment remain quite impaired. No signs of depression or annia. No signs of cognitive deficits. DIAGNOSES: 1. Schizophrenia, multiple episodes with recent decompensation. 2. Alcohol use disorder, unspecified. 3. Psychogenic polydipsia. PLAN: Continue present management. Results of clozapine blood level pending. Dr. Santos to return tomorrow.
[2019-02-06 16:07] VITALS: BP 136/88
[2019-02-06] MEDS: PILL CUTTER 1 EACH XX PRN (21:38)
[2019-02-06] MEDS: cloZAPine 100 MG TAB (S0136) PO SCH (21:39)
[2019-02-07 06:44] VITALS: BP 135/79
[2019-02-07] MEDS: cloZAPine 25 MG TAB (S0136) PO SCH ×2 (08:55→21:48)
--- NOTE | 2019-02-07 08:59 | MHIPNPDOC ---
[facility] Progress Note Progress Note Inpatient Progress Note Mike Singletary MRN: N/A Date of : N/A Date of Service: 02/07/2019 History of Present Illness 33-year-old man with a history of schizophrenia with severe noncompliance resulting in a new psychotic episode. He has significant polydipsia and has required medical treatment on this presentation due to seizures. Interval History The patient is attempted to be met with. However, he still is quite bizarre and says "okay" to everything. He continues to have difficulty with drinking too much water, however, the one-to-one sitter has been effective in preventing him from getting water poisoning. He grossly denies any problems, but is still quite disturbed saying "yes" to everything. He is guarded and paranoid, not attending groups and have reportedly gotten into an argument with his father over Hyacinth. Review Of Systems Denies any GI upset, nausea, vomiting, constipation. Is unable to decide whether he has any increase in thirst. Psychotherapy None on this visit. Vital Signs Reviewed. Mental Status Examination General: Fair hygiene. Speech: Sparse. Thought processes: Circumstantial. MSK: Severe restlessness, pacing up and down the hallway. Thought content: Paranoid. Abstract reasoning, and computation: Impaired. Description of associations: Impaired. Description of abnormal or psychotic thoughts: Denies any suicidal or homicidal ideation. Judgment: Impaired. Insight: Impaired. Orientation: Alert and orientated 3. Cognition: Grossly normal. Recent and remote memory: Intact. Attention span and concentration: Intact. Fund of knowledge: Adequate. Mood: "great." Affect: Flat with little reactivity. Diagnoses Schizophrenia. Alcohol use disorder, unspecified. Psychogenic polydipsia. Assessment and Plan Schizophrenia: Increase Clozaril to 175/50 mg PM and AM. Increase Abilify to 10 mg daily. ANC to be ordered this next week. Alcohol use disorder: Unlikely to have withdrawal, last drink several weeks ago. Polydipsia: Continue one-to-one sitter. Sodium levels appear to be normal. Disposition Referral to [facility] administrative hearing to be held next week. Time Spent 15 minutes [id number]. Sunday Vital Signs Vital Signs Date Time Temp Pulse Resp B/P (MAP) Pulse Ox O2 Delivery O2 Flow Rate FiO2 02/07/19 06:44 98.1 86 14 135/79 (97) Room Air Current Medications Current Medications Medications (Trade) Dose Ordered Sig/Julian Route PRN Reason Start Time Stop Time Status Last Admin Dose Admin Acetaminophen (Tylenol Tab) 650 mg Q6HP PRN PO HEADACHE or DISCOMFORT 01/22/19 14:15 Al Hydrox/Mg Hydrox/Simethicone (Mylanta) 30 ml Q4HP PRN PO HEARTBURN/INDIGESTION 01/22/19 14:15 Aripiprazole (AbiLIFY) 2 mg QHS PO 01/26/19 21:00 01/30/19 11:04 DC 01/29/19 20:43 Aripiprazole (AbiLIFY) 5 mg QHS PO 01/30/19 21:00 02/07/19 08:56 DC 02/06/19 21:39 Aripiprazole (AbiLIFY) 10 mg QHS PO 02/07/19 21:00 UNV Clozapine (Clozaril) 12.5 mg QHS PO 01/22/19 21:00 01/23/19 11:04 DC Clozapine (Clozaril) 25 mg QAM PO 01/31/19 09:00 02/03/19 12:55 DC 02/03/19 09:30 Clozapine (Clozaril) 25 mg QHS PO 01/23/19 21:00 01/24/19 14:05 DC 01/23/19 20:53 Clozapine (Clozaril) 50 mg QAM PO 02/04/19 09:00 02/07/19 08:55 Clozapine (Clozaril) 50 mg QHS PO 01/24/19 21:00 01/26/19 13:26 DC 01/25/19 22:34 Clozapine (Clozaril) 75 mg QHS PO 01/26/19 21:00 01/27/19 13:04 DC 01/26/19 21:11 Clozapine (Clozaril) 100 mg QHS PO 01/27/19 21:00 01/30/19 11:04 DC 01/29/19 20:43 Clozapine (Clozaril) 150 mg QHS PO 01/30/19 21:00 02/07/19 08:56 DC 02/06/19 21:39 Clozapine (Clozaril) 175 mg QHS PO 02/07/19 21:00 UNV Lorazepam (Ativan) 1 mg Q4HP PRN PO ANXIETY/AGITATION 02/03/19 11:00 02/04/19 08:56 Lorazepam (Ativan) 1 mg Q6HP PRN PO ANXIETY 01/25/19 16:45 02/01/19 16:44 DC 01/26/19 22:02 Magnesium Hydroxide (Milk Of Magnesia) 30 ml DAILYPRN PRN PO CONSTIPATION 01/22/19 14:15 Trazodone HCl (Desyrel) 50 mg QHSP PRN PO INSOMNIA 01/22/19 14:15 01/26/19 22:02 Allergies Coded Allergies: No Known Allergies (Unverified , 01/15/19) TINA MINAYA DO Feb 07, 2019 08:59
[2019-02-07 16:12] VITALS: BP 142/85
[2019-02-07] MEDS: ARIPiprazole 10 MG TAB PO SCH (21:48)
[2019-02-07] MEDS: cloZAPine 100 MG TAB (S0136) PO SCH (21:48)
[2019-02-08 00:09] LABS: CLOZAPINE 1 91 ng/mL (350-650); CLOZAPINE 2 79 ng/mL (Not Estab.); CLOZAPINE 3 170 ng/mL (.)
[2019-02-08 06:18] VITALS: BP 117/58
[2019-02-08] MEDS: cloZAPine 25 MG TAB (S0136) PO SCH ×2 (09:06→21:02)
[2019-02-08 14:19] LABS: BLOOD UREA NITROGEN 11 MG/DL (7-18); CALCIUM LEVEL 8.7 MG/DL (8.5-10.1); CARBON DIOXIDE LEVEL 26 MEQ/L (21-32); CHLORIDE LEVEL 108 MEQ/L (98-107); CREATININE FOR GFR 0.96 MG/DL (0.70-1.30); GLOMERULAR FILTRATION RATE > 60.0 (>60); GLUCOSE, FASTING 106 MG/DL (70-100); POTASSIUM SERUM 3.7 MEQ/L (3.5-5.1); SODIUM LEVEL 141 MEQ/L (136-145)
[2019-02-08 16:21] VITALS: BP 121/86
[2019-02-08] MEDS: cloZAPine 100 MG TAB (S0136) PO SCH (21:01)
[2019-02-08] MEDS: ARIPiprazole 10 MG TAB PO SCH (21:02)
[2019-02-09 06:05] VITALS: BP 127/77
[2019-02-09 07:58] LABS: BLOOD UREA NITROGEN 17 MG/DL (7-18); CALCIUM LEVEL 8.9 MG/DL (8.5-10.1); CARBON DIOXIDE LEVEL 25 MEQ/L (21-32); CHLORIDE LEVEL 106 MEQ/L (98-107); CREATININE FOR GFR 0.95 MG/DL (0.70-1.30); GLOMERULAR FILTRATION RATE > 60.0 (>60); GLUCOSE, FASTING 88 MG/DL (70-100); POTASSIUM SERUM 4.2 MEQ/L (3.5-5.1); SODIUM LEVEL 139 MEQ/L (136-145)
[2019-02-09] MEDS: cloZAPine 25 MG TAB (S0136) PO SCH ×2 (09:09→21:04)
[2019-02-09 16:42] VITALS: BP 130/88
[2019-02-09] MEDS: ARIPiprazole 10 MG TAB PO SCH (21:03)
[2019-02-09] MEDS: cloZAPine 100 MG TAB (S0136) PO SCH (21:04)
[2019-02-10] MEDS: cloZAPine 25 MG TAB (S0136) PO SCH ×2 (08:38→20:48)
[2019-02-10 09:59] LABS: BLOOD UREA NITROGEN 16 MG/DL (7-18); CALCIUM LEVEL 8.7 MG/DL (8.5-10.1); CARBON DIOXIDE LEVEL 23 MEQ/L (21-32); CHLORIDE LEVEL 108 MEQ/L (98-107); CREATININE FOR GFR 1.12 MG/DL (0.70-1.30); GLOMERULAR FILTRATION RATE > 60.0 (>60); GLUCOSE, FASTING 144 MG/DL (70-100); POTASSIUM SERUM 4.1 MEQ/L (3.5-5.1); SODIUM LEVEL 140 MEQ/L (136-145)
--- NOTE | 2019-02-10 10:33 | MHIPNPDOC ---
[facility] Progress Note Progress Note Inpatient Progress Note Mike Singletary MRN: N/A Date of : N/A Date of Service: 02/10/2019 History of Present Illness 33-year-old man with a history of schizophrenia with severe noncompliance resulting in a new psychotic episode. He has significant polydipsia and has required medical treatment on this presentation due to seizures. Interval History The patient is met with today. He has notably been less agitated and has less specific times where he has been disobeying his sitter. He continues to say everything is "fine" and is fairly guarded and avoidant. He has remained isolative to his room, not attending any groups. He denies any symptoms posed to him and continues to be unsure about wanting to go to [facility] for further long-term treatment. Review Of Systems Cardiovascular: Denies chest pain or palpitations GI: Denies nausea, vomiting, or bowel changes Respiratory: Denies shortness of breath or cough Neuro: Denies dizziness, tremors Derm: Denies any rashes or pruritus MSK: Denies any muscle tightness or stiffness Psychotherapy None on this visit. Vital Signs Reviewed. Mental Status Examination General: Fair hygiene. Speech: Sparse. Thought processes: Circumstantial. MSK: Severe restlessness, pacing up and down the hallway. Thought content: Paranoid. Abstract reasoning, and computation: Impaired. Description of associations: Impaired. Description of abnormal or psychotic thoughts: Denies any suicidal or homicidal ideation. Judgment: Impaired. Insight: Impaired. Orientation: Alert and orientated 3. Cognition: Grossly normal. Recent and remote memory: Intact. Attention span and concentration: Intact. Fund of knowledge: Adequate. Mood: "great." Affect: Flat with little reactivity. Diagnoses Schizophrenia. Alcohol use disorder, unspecified. Psychogenic polydipsia. Assessment and Plan Schizophrenia: Increase Clozaril to 175 mg p.m. and 75 mg a.m. Continue Abilify 10 mg daily. ANC normal on last draw. Alcohol use disorder: Unlikely to have withdrawal, last drink several weeks ago. Polydipsia: Continue one-to-one sitter. Sodium levels appear to be normal. Disposition Referral to [facility] administrative hearing to be held next week. Time Spent 15 minutes [id number]. Sunday Vital Signs Vital Signs Date Time Temp Pulse Resp B/P (MAP) Pulse Ox O2 Delivery O2 Flow Rate FiO2 12/29/19 16:42 98.4 79 16 130/88 (102) 02/07/19 06:44 Room Air Laboratory Data 24H Labs Laboratory Tests 2 02/10/19 09:05: Anion Gap 9, Glomerular Filtration Rate > 60.0, Calcium Level 8.7 CBC/BMP Laboratory Tests 02/10/19 09:05 Current Medications Current Medications Medications (Trade) Dose Ordered Sig/Julian Route PRN Reason Start Time Stop Time Status Last Admin Dose Admin Acetaminophen (Tylenol Tab) 650 mg Q6HP PRN PO HEADACHE or DISCOMFORT 01/22/19 14:15 Al Hydrox/Mg Hydrox/Simethicone (Mylanta) 30 ml Q4HP PRN PO HEARTBURN/INDIGESTION 01/22/19 14:15 Aripiprazole (AbiLIFY) 2 mg QHS PO 01/26/19 21:00 01/30/19 11:04 DC 01/29/19 20:43 Aripiprazole (AbiLIFY) 5 mg QHS PO 01/30/19 21:00 02/07/19 08:56 DC 02/06/19 21:39 Aripiprazole (AbiLIFY) 10 mg QHS PO 02/07/19 21:00 02/09/19 21:03 Clozapine (Clozaril) 12.5 mg QHS PO 01/22/19 21:00 01/23/19 11:04 DC Clozapine (Clozaril) 25 mg QAM PO 01/31/19 09:00 02/03/19 12:55 DC 02/03/19 09:30 Clozapine (Clozaril) 25 mg QHS PO 01/23/19 21:00 01/24/19 14:05 DC 01/23/19 20:53 Clozapine (Clozaril) 50 mg QAM PO 02/04/19 09:00 02/10/19 08:38 Clozapine (Clozaril) 50 mg QHS PO 01/24/19 21:00 01/26/19 13:26 DC 01/25/19 22:34 Clozapine (Clozaril) 75 mg QHS PO 01/26/19 21:00 01/27/19 13:04 DC 01/26/19 21:11 Clozapine (Clozaril) 75 mg QHS PO 02/07/19 21:00 02/09/19 21:04 Clozapine (Clozaril) 100 mg QHS PO 01/27/19 21:00 01/30/19 11:04 DC 01/29/19 20:43 Clozapine (Clozaril) 100 mg QHS PO 02/07/19 21:00 02/09/19 21:04 Clozapine (Clozaril) 150 mg QHS PO 01/30/19 21:00 02/07/19 08:56 DC 02/06/19 21:39 Lorazepam (Ativan) 1 mg Q4HP PRN PO ANXIETY/AGITATION 02/03/19 11:00 02/04/19 08:56 Lorazepam (Ativan) 1 mg Q6HP PRN PO ANXIETY 01/25/19 16:45 02/01/19 16:44 DC 01/26/19 22:02 Magnesium Hydroxide (Milk Of Magnesia) 30 ml DAILYPRN PRN PO CONSTIPATION 01/22/19 14:15 Miscellaneous (Unresolved Clarification Entry) SEE LABEL COMMENTS DAILY XX 02/10/19 09:00 Trazodone HCl (Desyrel) 50 mg QHSP PRN PO INSOMNIA 01/22/19 14:15 01/26/19 22:02 Allergies Coded Allergies: No Known Allergies (Unverified , 01/15/19) TINA MINAYA DO Feb 10, 2019 10:33
[2019-02-10 12:49] LABS: BASO % 0.6 % (0.0-1.0); EOS # 0.5 10^3/uL (0.0-0.5); EOS % 8.6 % (0.0-3.0); HEMOGLOBIN 14.6 g/dl (13.5-17.5); LYMPH # 1.7 10^3/uL (1.5-5.0); LYMPH % 31.7 % (24.0-44.0); MEAN CORPUSCULAR HEMOGLOBIN 29.7 pg (27.0-33.0); MEAN CORPUSCULAR HGB CONC 33.2 g/dl (32.0-36.5); MEAN CORPUSCULAR VOLUME 89.6 fl (80.0-96.0); MONO # 0.7 10^3/uL (0.0-0.8); MONO % 12.5 % (0.0-5.0); NEUTROPHILS # 2.4 10^3/uL (1.5-8.5); NEUTROPHILS % 46.4 % (36.0-66.0); PLATELET COUNT, AUTOMATED 291 10^3/uL (150-450); RED BLOOD COUNT 4.91 10^6/uL (4.30-6.10); WHITE BLOOD COUNT 5.2 10^3/uL (4.0-10.0)
[2019-02-10 15:18] VITALS: BP 138/86
[2019-02-10] MEDS: cloZAPine 100 MG TAB (S0136) PO SCH (20:47)
[2019-02-10] MEDS: ARIPiprazole 10 MG TAB PO SCH (20:47)
[2019-02-11 06:00] VITALS: BP 140/74
[2019-02-11 07:50] LABS: BASO % 0.7 % (0.0-1.0); EOS # 0.6 10^3/uL (0.0-0.5); EOS % 10.5 % (0.0-3.0); HEMATOCRIT 41.1 % (42.0-52.0); HEMOGLOBIN 13.8 g/dl (13.5-17.5); LYMPH % 34.1 % (24.0-44.0); MEAN CORPUSCULAR HEMOGLOBIN 29.7 pg (27.0-33.0); MEAN CORPUSCULAR HGB CONC 33.6 g/dl (32.0-36.5); MEAN CORPUSCULAR VOLUME 88.4 fl (80.0-96.0); MONO # 0.7 10^3/uL (0.0-0.8); MONO % 11.4 % (0.0-5.0); NEUTROPHILS # 2.5 10^3/uL (1.5-8.5); NEUTROPHILS % 43.1 % (36.0-66.0); PLATELET COUNT, AUTOMATED 286 10^3/uL (150-450); RED BLOOD COUNT 4.65 10^6/uL (4.30-6.10); WHITE BLOOD COUNT 5.7 10^3/uL (4.0-10.0)
[2019-02-11] MEDS ORDERED: cloZAPine 25 MG TAB (S0136) PO SCH (09:00)
[2019-02-11] MEDS: cloZAPine 25 MG TAB (S0136) PO SCH ×2 (10:10→21:44)
--- NOTE | 2019-02-11 10:54 | MHIPNPDOC ---
[facility] Progress Note Progress Note Inpatient Progress Note Mike Singletary MRN: N/A Date of : N/A Date of Service: 02/11/2019 History of Present Illness 33-year-old man with a history of schizophrenia with severe noncompliance resulting in a new psychotic episode. He has significant polydipsia and has required medical treatment on this presentation due to seizures. Interval History The patient is met with today. He still continues to deny any problems, very guarded and somewhat paranoid. He has notably had less problems with calling the phone or drinking excessive amounts of water and has made no attempt to do so now. The nursing staff report that he has significantly less thirst and the patient has been denying any notable problems with thirst at this time. The patient reports that he is "fine" and has generally been not engaging in any unusual behaviors. He has not been attending groups but has had no behavioral problems. Review Of Systems Cardiovascular: Denies chest pain or palpitations GI: Denies nausea, vomiting, or bowel changes Respiratory: Denies shortness of breath or cough Neuro: Denies dizziness, tremors Derm: Denies any rashes or pruritus MSK: Denies any muscle tightness or stiffness Psychotherapy None on this visit. Vital Signs Reviewed. Mental Status Examination General: Fair hygiene. Speech: Sparse. Thought processes: Circumstantial. MSK: Severe restlessness, pacing up and down the hallway. Thought content: Paranoid. Abstract reasoning, and computation: Impaired. Description of associations: Impaired. Description of abnormal or psychotic thoughts: Denies any suicidal or homicidal ideation. Judgment: Impaired. Insight: Impaired. Orientation: Alert and orientated 3. Cognition: Grossly normal. Recent and remote memory: Intact. Attention span and concentration: Intact. Fund of knowledge: Adequate. Mood: "great." Affect: Flat with little reactivity. Diagnoses Schizophrenia. Alcohol use disorder, unspecified. Psychogenic polydipsia. Assessment and Plan Schizophrenia: Increase Clozaril to 175 mg p.m. and 75 mg a.m. Continue Abilify 10 mg daily. ANC normal on last draw. Alcohol use disorder: Unlikely to have withdrawal, last drink several weeks ago. Polydipsia: We'll do a short trial of one-to-one sitter to see if patient can tolerate and not overdrink water or make significant phone calls. If patient begins drinking excessive amounts of water, we'll replace on to one-to-one. Change Clozaril to increase to 187.5 mg p.m. and 87.5 mg a.m. Disposition [place]erral [place] [facility] [place] to be held at the end of this week. Time Spent 15 minutes [id number]. Sunday Vital Signs Vital Signs Date Time Temp Pulse Resp B/P (MAP) Pulse Ox O2 Delivery O2 Flow Rate FiO2 02/11/19 08:01 Room Air 02/11/19 06:00 97.9 95 14 140/74 (96) Laboratory Data 24H Labs Laboratory Tests 2 02/10/19 12:34: Immature Granulocyte % (Auto) 0.2, Neutrophils (%) (Auto) 46.4, Lymphocytes (%) (Auto) 31.7, Monocytes (%) (Auto) 12.5H, Eosinophils (%) (Auto) 8.6H, Basophils (%) (Auto) 0.6, Neutrophils # (Auto) 2.4, Lymphocytes # (Auto) 1.7, Monocytes # (Auto) 0.7, Eosinophils # (Auto) 0.5, Basophils # (Auto) 0.0, Nucleated Red Blood Cells % (auto) 0.0 02/11/19 07:20: Immature Granulocyte % (Auto) 0.2, Neutrophils (%) (Auto) 43.1, Lymphocytes (%) (Auto) 34.1, Monocytes (%) (Auto) 11.4H, Eosinophils (%) (Auto) 10.5H, Basophils (%) (Auto) 0.7, Neutrophils # (Auto) 2.5, Lymphocytes # (Auto) 2.0, Monocytes # (Auto) 0.7, Eosinophils # (Auto) 0.6H, Basophils # (Auto) 0.0, Nucleated Red Blood Cells % (auto) 0.0 CBC/BMP Laboratory Tests 02/10/19 12:34 02/11/19 07:20 Current Medications Current Medications Medications (Trade) Dose Ordered Sig/Julian Route PRN Reason Start Time Stop Time Status Last Admin Dose Admin Acetaminophen (Tylenol Tab) 650 mg Q6HP PRN PO HEADACHE or DISCOMFORT 01/22/19 14:15 Al Hydrox/Mg Hydrox/Simethicone (Mylanta) 30 ml Q4HP PRN PO HEARTBURN/INDIGESTION 01/22/19 14:15 Aripiprazole (AbiLIFY) 2 mg QHS PO 01/26/19 21:00 01/30/19 11:04 DC 01/29/19 20:43 Aripiprazole (AbiLIFY) 5 mg QHS PO 01/30/19 21:00 02/07/19 08:56 DC 02/06/19 21:39 Aripiprazole (AbiLIFY) 10 mg QHS PO 02/07/19 21:00 02/10/19 20:47 Clozapine (Clozaril) 12.5 mg QHS PO 01/22/19 21:00 01/23/19 11:04 DC Clozapine (Clozaril) 25 mg QAM PO 01/31/19 09:00 02/03/19 12:55 DC 02/03/19 09:30 Clozapine (Clozaril) 25 mg QHS PO 01/23/19 21:00 01/24/19 14:05 DC 01/23/19 20:53 Clozapine (Clozaril) 50 mg QAM PO 02/04/19 09:00 02/10/19 12:11 DC 02/10/19 08:38 Clozapine (Clozaril) 50 mg QHS PO 01/24/19 21:00 01/26/19 13:26 DC 01/25/19 22:34 Clozapine (Clozaril) 75 mg BID PO 02/10/19 21:00 02/11/19 10:10 Clozapine (Clozaril) 75 mg QAM PO 02/11/19 09:00 Cancel Clozapine (Clozaril) 75 mg QHS PO 01/26/19 21:00 01/27/19 13:04 DC 01/26/19 21:11 Clozapine (Clozaril) 75 mg QHS PO 02/07/19 21:00 02/10/19 20:03 DC 02/09/19 21:04 Clozapine (Clozaril) 100 mg QHS PO 01/27/19 21:00 01/30/19 11:04 DC 01/29/19 20:43 Clozapine (Clozaril) 100 mg QHS PO 02/07/19 21:00 02/10/19 20:03 DC 02/09/19 21:04 Clozapine (Clozaril) 100 mg QHS PO 02/10/19 21:00 02/10/19 20:47 Clozapine (Clozaril) 150 mg QHS PO 01/30/19 21:00 02/07/19 08:56 DC 02/06/19 21:39 Lorazepam (Ativan) 1 mg Q4HP PRN PO ANXIETY/AGITATION 02/03/19 11:00 02/04/19 08:56 Lorazepam (Ativan) 1 mg Q6HP PRN PO ANXIETY 01/25/19 16:45 02/01/19 16:44 DC 01/26/19 22:02 Magnesium Hydroxide (Milk Of Magnesia) 30 ml DAILYPRN PRN PO CONSTIPATION 01/22/19 14:15 Miscellaneous (Unresolved Clarification Entry) SEE LABEL COMMENTS DAILY XX 02/10/19 09:00 02/10/19 17:42 DC Trazodone HCl (Desyrel) 50 mg QHSP PRN PO INSOMNIA 01/22/19 14:15 01/26/19 22:02 Allergies Coded Allergies: No Known Allergies (Unverified , 01/15/19) TINA MINAYA DO Feb 11, 2019 10:54
[2019-02-11 17:35] VITALS: BP 140/87
[2019-02-11] MEDS: cloZAPine 100 MG TAB (S0136) PO SCH (21:41)
[2019-02-11] MEDS: PILL CUTTER 1 EACH XX PRN (21:42)
[2019-02-12 06:46] VITALS: BP 128/74
[2019-02-12] MEDS: cloZAPine 25 MG TAB (S0136) PO SCH ×2 (09:13→21:05)
[2019-02-12 15:32] VITALS: BP 151/87
[2019-02-12] MEDS: cloZAPine 100 MG TAB (S0136) PO SCH (21:05)
[2019-02-13 06:20] VITALS: BP 142/80
--- NOTE | 2019-02-13 08:46 | MHIPNPDOC ---
[facility] Progress Note Progress Note Inpatient Progress Note Mike Singletary MRN: N/A Date of : N/A Date of Service: 02/13/2019 History of Present Illness 33-year-old man with a history of schizophrenia with severe noncompliance resulting in a new psychotic episode. He has significant polydipsia and has required medical treatment on this presentation due to seizures. Interval History The patient is met with today. He reports continuously no problems with his medications. He has been isolative to his room, but has been doing well off the one-to-one. His sodium has remained more or less normal and his water intake has remained constrained. He additionally has not been calling his parents excessively, seeming to make some mild improvements in his behavior. He still is fairly guarded and paranoid, unable to participate in any meaningful interview as he continually states that "everything is fine." The hearing is undertaken today where he is unable to interact with the hearing, apparently still quite confused and tangential. The patient is still undecided about going to long- term, but makes no refusal to or any other argument against going. He has had no major behavioral problems overnight. Review Of Systems Cardiovascular: Denies chest pain or palpitations GI: Denies nausea, vomiting, or bowel changes Respiratory: Denies shortness of breath or cough Neuro: Denies dizziness, tremors Derm: Denies any rashes or pruritus MSK: Denies any muscle tightness or stiffness Psychotherapy None on this visit. Vital Signs Reviewed. Mental Status Examination General: Fair hygiene Speech: Sparse Thought processes: Circumstantial MSK: Severe restlessness, pacing up and down the hallway Thought content: Paranoid Abstract reasoning, and computation: Impaired Description of associations: Impaired Description of abnormal or psychotic thoughts: Denies any suicidal or homicidal ideation Judgment: Impaired Insight: Impaired Orientation: Alert and orientated 3 Cognition: Grossly normal Recent and remote memory: Intact Attention span and concentration: Intact Fund of knowledge: Adequate Mood: "Great" Affect: Flat with little reactivity Diagnoses Schizophrenia. Alcohol use disorder, unspecified. Psychogenic polydipsia. Assessment and Plan Schizophrenia: Increase Clozaril to 187 mg p.m. and 87.5 mg a.m. Continue Abilify, increase to 15 mg nightly. ANC normal on last draw. Alcohol use disorder: Unlikely to have withdrawal, last drink several weeks ago. Polydipsia: Sodium appears normal. Patient's water use is constrained. Does not appear to be having adverse effects from it. Clozaril appears to be more effective. Disposition The patient will be transferred to long-term care due to his treatment-resistant psychosis, significant impairment and inability to attend to his basic needs. Time Spent 15 minutes [id number], 20 minutes hearing. Vital Signs Vital Signs Date Time Temp Pulse Resp B/P (MAP) Pulse Ox O2 Delivery O2 Flow Rate FiO2 02/13/19 06:20 97.6 86 16 142/80 (100) Room Air Current Medications Current Medications Medications (Trade) Dose Ordered Sig/Julian Route PRN Reason Start Time Stop Time Status Last Admin Dose Admin Acetaminophen (Tylenol Tab) 650 mg Q6HP PRN PO HEADACHE or DISCOMFORT 01/22/19 14:15 Al Hydrox/Mg Hydrox/Simethicone (Mylanta) 30 ml Q4HP PRN PO HEARTBURN/INDIGESTION 01/22/19 14:15 Aripiprazole (AbiLIFY) 2 mg QHS PO 01/26/19 21:00 01/30/19 11:04 DC 01/29/19 20:43 Aripiprazole (AbiLIFY) 5 mg QHS PO 01/30/19 21:00 02/07/19 08:56 DC 02/06/19 21:39 Aripiprazole (AbiLIFY) 10 mg QHS PO 02/07/19 21:00 02/11/19 11:55 DC 02/10/19 20:47 Aripiprazole (AbiLIFY) 15 mg QHS PO 02/11/19 21:00 02/12/19 21:06 Clozapine (Clozaril) 12.5 mg QHS PO 01/22/19 21:00 01/23/19 11:04 DC Clozapine (Clozaril) 25 mg QAM PO 01/31/19 09:00 02/03/19 12:55 DC 02/03/19 09:30 Clozapine (Clozaril) 25 mg QHS PO 01/23/19 21:00 01/24/19 14:05 DC 01/23/19 20:53 Clozapine (Clozaril) 50 mg QAM PO 02/04/19 09:00 02/10/19 12:11 DC 02/10/19 08:38 Clozapine (Clozaril) 50 mg QHS PO 01/24/19 21:00 01/26/19 13:26 DC 01/25/19 22:34 Clozapine (Clozaril) 75 mg BID PO 02/10/19 21:00 02/11/19 11:55 DC 02/11/19 10:10 Clozapine (Clozaril) 75 mg QAM PO 02/11/19 09:00 Cancel Clozapine (Clozaril) 75 mg QHS PO 01/26/19 21:00 01/27/19 13:04 DC 01/26/19 21:11 Clozapine (Clozaril) 75 mg QHS PO 02/07/19 21:00 02/10/19 20:03 DC 02/09/19 21:04 Clozapine (Clozaril) 87.5 mg BID PO 02/11/19 21:00 02/12/19 21:05 Clozapine (Clozaril) 100 mg QHS PO 01/27/19 21:00 01/30/19 11:04 DC 01/29/19 20:43 Clozapine (Clozaril) 100 mg QHS PO 02/07/19 21:00 02/10/19 20:03 DC 02/09/19 21:04 Clozapine (Clozaril) 100 mg QHS PO 02/10/19 21:00 02/12/19 21:05 Clozapine (Clozaril) 150 mg QHS PO 01/30/19 21:00 02/07/19 08:56 DC 02/06/19 21:39 Lorazepam (Ativan) 1 mg Q4HP PRN PO ANXIETY/AGITATION 02/03/19 11:00 02/04/19 08:56 Lorazepam (Ativan) 1 mg Q6HP PRN PO ANXIETY 01/25/19 16:45 02/01/19 16:44 DC 01/26/19 22:02 Magnesium Hydroxide (Milk Of Magnesia) 30 ml DAILYPRN PRN PO CONSTIPATION 01/22/19 14:15 Miscellaneous (Unresolved Clarification Entry) SEE LABEL COMMENTS DAILY XX 02/10/19 09:00 02/10/19 17:42 DC Trazodone HCl (Desyrel) 50 mg QHSP PRN PO INSOMNIA 01/22/19 14:15 01/26/19 22:02 Allergies Coded Allergies: No Known Allergies (Unverified , 01/15/19) TINA MINAYA DO Feb 13, 2019 08:46
[2019-02-13] MEDS: cloZAPine 25 MG TAB (S0136) PO SCH ×2 (09:00→21:37)
[2019-02-13 18:00] VITALS: BP 141/81
[2019-02-13] MEDS: cloZAPine 100 MG TAB (S0136) PO SCH (21:37)
[2019-02-14 06:38] VITALS: BP 137/78
[2019-02-14] MEDS: cloZAPine 25 MG TAB (S0136) PO SCH (08:51)
--- NOTE | 2019-02-14 10:19 | MHIPNPDOC ---
[facility] Progress Note Progress Note Inpatient Progress Note Mike Singletary MRN: N/A Date of : N/A Date of Service: 02/14/2019 History of Present Illness 33-year-old man with a history of schizophrenia with severe noncompliance resulting in a new psychotic episode. He has significant polydipsia and has required medical treatment on this presentation due to seizures. Interval History The patient is met with today, he still is somewhat paranoid, does not engage with me significantly stating everything "is great." He denies any side effects from any medications, stays isolative in his dark room. When asked why he is isolative, he states "I do not know." He has been minimally interactive, his drinking behaviors do not seem to have increased and he has not had any behavioral problems overnight. Review Of Systems Cardiovascular: Denies chest pain or palpitations GI: Denies nausea, vomiting, or bowel changes Respiratory: Denies shortness of breath or cough Neuro: Denies dizziness, tremors Derm: Denies any rashes or pruritus MSK: Denies any muscle tightness or stiffness Psychotherapy None on this visit. Vital Signs Reviewed. Mental Status Examination General: Fair hygiene Speech: Sparse Thought processes: Circumstantial MSK: Severe restlessness, pacing up and down the hallway Thought content: Paranoid Abstract reasoning, and computation: Impaired Description of associations: Impaired Description of abnormal or psychotic thoughts: Denies any suicidal or homicidal ideation Judgment: Impaired Insight: Impaired Orientation: Alert and orientated 3 Cognition: Grossly normal Recent and remote memory: Intact Attention span and concentration: Intact Fund of knowledge: Adequate Mood: "Great" Affect: Flat with little reactivity Diagnoses Schizophrenia. Alcohol use disorder, unspecified. Psychogenic polydipsia. Assessment and Plan Schizophrenia: Increase Clozaril to 200 mg nightly and 100 mg AM. Continue Abilify 15 mg nightly. Will draw new ANC soon. Alcohol use disorder: Unlikely to have withdrawal, last drink several weeks ago. Polydipsia: Sodium appears normal. Patient's water use is constrained. Does not appear to be having adverse effects from it. Clozaril appears to be more effective. Disposition The patient will be transferred to long-term care due to his treatment-resistant psychosis, significant impairment and inability to attend to his basic needs. Time Spent 15 minutes [id number] Sunday Vital Signs Vital Signs Date Time Temp Pulse Resp B/P (MAP) Pulse Ox O2 Delivery O2 Flow Rate FiO2 02/14/19 06:38 99.0 93 12 137/78 (97) Room Air Current Medications Current Medications Medications (Trade) Dose Ordered Sig/Julian Route PRN Reason Start Time Stop Time Status Last Admin Dose Admin Acetaminophen (Tylenol Tab) 650 mg Q6HP PRN PO HEADACHE or DISCOMFORT 01/22/19 14:15 Al Hydrox/Mg Hydrox/Simethicone (Mylanta) 30 ml Q4HP PRN PO HEARTBURN/INDIGESTION 01/22/19 14:15 Aripiprazole (AbiLIFY) 2 mg QHS PO 01/26/19 21:00 01/30/19 11:04 DC 01/29/19 20:43 Aripiprazole (AbiLIFY) 5 mg QHS PO 01/30/19 21:00 02/07/19 08:56 DC 02/06/19 21:39 Aripiprazole (AbiLIFY) 10 mg QHS PO 02/07/19 21:00 02/11/19 11:55 DC 02/10/19 20:47 Aripiprazole (AbiLIFY) 15 mg QHS PO 02/11/19 21:00 02/13/19 21:36 Clozapine (Clozaril) 12.5 mg QHS PO 01/22/19 21:00 01/23/19 11:04 DC Clozapine (Clozaril) 25 mg QAM PO 01/31/19 09:00 02/03/19 12:55 DC 02/03/19 09:30 Clozapine (Clozaril) 25 mg QHS PO 01/23/19 21:00 01/24/19 14:05 DC 01/23/19 20:53 Clozapine (Clozaril) 50 mg QAM PO 02/04/19 09:00 02/10/19 12:11 DC 02/10/19 08:38 Clozapine (Clozaril) 50 mg QHS PO 01/24/19 21:00 01/26/19 13:26 DC 01/25/19 22:34 Clozapine (Clozaril) 75 mg BID PO 02/10/19 21:00 02/11/19 11:55 DC 02/11/19 10:10 Clozapine (Clozaril) 75 mg QAM PO 02/11/19 09:00 Cancel Clozapine (Clozaril) 75 mg QHS PO 01/26/19 21:00 01/27/19 13:04 DC 01/26/19 21:11 Clozapine (Clozaril) 75 mg QHS PO 02/07/19 21:00 02/10/19 20:03 DC 02/09/19 21:04 Clozapine (Clozaril) 87.5 mg BID PO 02/11/19 21:00 02/14/19 08:51 Clozapine (Clozaril) 100 mg QHS PO 01/27/19 21:00 01/30/19 11:04 DC 01/29/19 20:43 Clozapine (Clozaril) 100 mg QHS PO 02/07/19 21:00 02/10/19 20:03 DC 02/09/19 21:04 Clozapine (Clozaril) 100 mg QHS PO 02/10/19 21:00 02/13/19 21:37 Clozapine (Clozaril) 150 mg QHS PO 01/30/19 21:00 02/07/19 08:56 DC 02/06/19 21:39 Lorazepam (Ativan) 1 mg Q4HP PRN PO ANXIETY/AGITATION 02/03/19 11:00 02/04/19 08:56 Lorazepam (Ativan) 1 mg Q6HP PRN PO ANXIETY 01/25/19 16:45 02/01/19 16:44 DC 01/26/19 22:02 Magnesium Hydroxide (Milk Of Magnesia) 30 ml DAILYPRN PRN PO CONSTIPATION 01/22/19 14:15 Miscellaneous (Unresolved Clarification Entry) SEE LABEL COMMENTS DAILY XX 02/10/19 09:00 02/10/19 17:42 DC Trazodone HCl (Desyrel) 50 mg QHSP PRN PO INSOMNIA 01/22/19 14:15 01/26/19 22:02 Allergies Coded Allergies: No Known Allergies (Unverified , 01/15/19) TINA MINAYA DO Feb 14, 2019 10:19
[2019-02-14 18:00] VITALS: BP 131/81
[2019-02-14] MEDS: cloZAPine 100 MG TAB (S0136) PO SCH ×2 (21:12)
[2019-02-15] MEDS: cloZAPine 100 MG TAB (S0136) PO SCH ×3 (08:09→20:40)
[2019-02-15 16:00] VITALS: BP 150/84
[2019-02-16 06:20] VITALS: BP 144/80
[2019-02-16] MEDS: cloZAPine 100 MG TAB (S0136) PO SCH ×3 (08:20→21:38)
[2019-02-16 15:57] VITALS: BP 127/65
[2019-02-17 06:18] VITALS: BP 124/62
[2019-02-17] MEDS: cloZAPine 100 MG TAB (S0136) PO SCH ×3 (09:38→20:44)
--- NOTE | 2019-02-17 10:40 | MHIPNPDOC ---
[facility] Progress Note Progress Note Inpatient Progress Note Mike Singletary MRN: N/A Date of : N/A Date of Service: 02/17/2019 History of Present Illness 33-year-old man with a history of schizophrenia with severe noncompliance resulting in a new psychotic episode. He has significant polydipsia and has required medical treatment on this presentation due to seizures. Interval History The patient is attempted to be met with today. He continues to say "everything is great" and "I don't know" when asked a multitude of questions. He says yes and no to most questions, he stays isolative to his room. However, with some prompting, he does get out of his bed and engages more. He reports he has had no problem from the Clozaril and reports it's "great," but is unable to describe to me any factors by which it is, simply stating that "I don't know." He has made some notable improvements in his behavior. He has not called his parents significantly and his sodium remains stable with his thirst appearing to be much more controlled. He has had no major behavioral problems overnight, has not been attending groups. Review Of Systems Cardiovascular: Denies chest pain or palpitations GI: Denies nausea, vomiting, or bowel changes Respiratory: Denies shortness of breath or cough Neuro: Denies dizziness, tremors Derm: Denies any rashes or pruritus MSK: Denies any muscle tightness or stiffness Psychotherapy None on this visit. Vital Signs Reviewed. Mental Status Examination General: Fair hygiene Speech: Sparse Thought processes: Circumstantial MSK: Severe restlessness, pacing up and down the hallway Thought content: Paranoid Abstract reasoning, and computation: Impaired Description of associations: Impaired Description of abnormal or psychotic thoughts: Denies any suicidal or homicidal ideation Judgment: Impaired Insight: Impaired Orientation: Alert and orientated 3 Cognition: Grossly normal Recent and remote memory: Intact Attention span and concentration: Intact Fund of knowledge: Adequate Mood: "Great" Affect: Flat with little reactivity Diagnoses Schizophrenia. Alcohol use disorder, unspecified. Psychogenic polydipsia. Assessment and Plan Schizophrenia: Continue Clozaril 200 mg nightly and 100 mg AM as well as Abilify. Alcohol use disorder: Unlikely to have withdrawal, last drink several weeks ago. Polydipsia: Sodium appears normal. Patient's water use is constrained. Does not appear to be having adverse effects from it. Clozaril appears to be more effective. Disposition The patient will be transferred to long-term care due to his treatment-resistant psychosis, significant impairment and inability to attend to his basic needs. Time Spent 15 minutes [id number]. Sunday Vital Signs Vital Signs Date Time Temp Pulse Resp B/P (MAP) Pulse Ox O2 Delivery O2 Flow Rate FiO2 02/17/19 07:59 Room Air 02/17/19 06:18 98.5 95 18 124/62 (82) Current Medications Current Medications Medications (Trade) Dose Ordered Sig/Julian Route PRN Reason Start Time Stop Time Status Last Admin Dose Admin Acetaminophen (Tylenol Tab) 650 mg Q6HP PRN PO HEADACHE or DISCOMFORT 01/22/19 14:15 Al Hydrox/Mg Hydrox/Simethicone (Mylanta) 30 ml Q4HP PRN PO HEARTBURN/INDIGESTION 01/22/19 14:15 Aripiprazole (AbiLIFY) 2 mg QHS PO 01/26/19 21:00 01/30/19 11:04 DC 01/29/19 20:43 Aripiprazole (AbiLIFY) 5 mg QHS PO 01/30/19 21:00 02/07/19 08:56 DC 02/06/19 21:39 Aripiprazole (AbiLIFY) 10 mg QHS PO 02/07/19 21:00 02/11/19 11:55 DC 02/10/19 20:47 Aripiprazole (AbiLIFY) 15 mg QHS PO 02/11/19 21:00 02/16/19 21:38 Clozapine (Clozaril) 12.5 mg QHS PO 01/22/19 21:00 01/23/19 11:04 DC Clozapine (Clozaril) 25 mg QAM PO 01/31/19 09:00 02/03/19 12:55 DC 02/03/19 09:30 Clozapine (Clozaril) 25 mg QHS PO 01/23/19 21:00 01/24/19 14:05 DC 01/23/19 20:53 Clozapine (Clozaril) 50 mg QAM PO 02/04/19 09:00 02/10/19 12:11 DC 02/10/19 08:38 Clozapine (Clozaril) 50 mg QHS PO 01/24/19 21:00 01/26/19 13:26 DC 01/25/19 22:34 Clozapine (Clozaril) 75 mg BID PO 02/10/19 21:00 02/11/19 11:55 DC 02/11/19 10:10 Clozapine (Clozaril) 75 mg QAM PO 02/11/19 09:00 Cancel Clozapine (Clozaril) 75 mg QHS PO 01/26/19 21:00 01/27/19 13:04 DC 01/26/19 21:11 Clozapine (Clozaril) 75 mg QHS PO 02/07/19 21:00 02/10/19 20:03 DC 02/09/19 21:04 Clozapine (Clozaril) 87.5 mg BID PO 02/11/19 21:00 02/14/19 18:52 DC 02/14/19 08:51 Clozapine (Clozaril) 100 mg BID PO 02/14/19 21:00 02/17/19 09:38 Clozapine (Clozaril) 100 mg QHS PO 01/27/19 21:00 01/30/19 11:04 DC 01/29/19 20:43 Clozapine (Clozaril) 100 mg QHS PO 02/07/19 21:00 02/10/19 20:03 DC 02/09/19 21:04 Clozapine (Clozaril) 100 mg QHS PO 02/10/19 21:00 02/16/19 21:37 Clozapine (Clozaril) 150 mg QHS PO 01/30/19 21:00 02/07/19 08:56 DC 02/06/19 21:39 Lorazepam (Ativan) 1 mg Q4HP PRN PO ANXIETY/AGITATION 02/03/19 11:00 02/17/19 10:30 DC 02/04/19 08:56 Lorazepam (Ativan) 1 mg Q6HP PRN PO ANXIETY 01/25/19 16:45 02/01/19 16:44 DC 01/26/19 22:02 Magnesium Hydroxide (Milk Of Magnesia) 30 ml DAILYPRN PRN PO CONSTIPATION 01/22/19 14:15 Miscellaneous (Unresolved Clarification Entry) SEE LABEL COMMENTS DAILY XX 02/17/19 09:00 Miscellaneous (Unresolved Clarification Entry) SEE LABEL COMMENTS DAILY XX 02/10/19 09:00 02/10/19 17:42 DC Trazodone HCl (Desyrel) 50 mg QHSP PRN PO INSOMNIA 01/22/19 14:15 01/26/19 22:02 Allergies Coded Allergies: No Known Allergies (Unverified , 01/15/19) TINA MINAYA DO Feb 17, 2019 10:40
[2019-02-17 18:00] VITALS: BP 147/85
[2019-02-18 06:47] VITALS: BP 131/79
[2019-02-18] MEDS: cloZAPine 100 MG TAB (S0136) PO SCH ×2 (09:01→21:19)
--- NOTE | 2019-02-18 11:05 | MHIPNPDOC ---
[facility] Progress Note Progress Note Inpatient Progress Note Mike Singletary MRN: N/A Date of : N/A Date of Service: 02/18/2019 History of Present Illness 33-year-old man with a history of schizophrenia with severe noncompliance resulting in a new psychotic episode. He has significant polydipsia and has required medical treatment on this presentation due to seizures. Interval History The patient is met with today. He continues to state everything is "okay." He has still been unable to engage in a meaningful discussion of his thought process. He remains isolative to his room in the dark. He describes he has had no problem with the medication and feels it is "helpful," but is still unable to describe what exactly is helpful. He has had no major behavioral problems and still is not over drinking water and has not been excessively calling on the phone with less paranoid behaviors. He still remains isolative, spending very little time in the milieu before returning to his room. He has significant difficulties being outside of his room and around others feeling quite frightened. Review Of Systems Cardiovascular: Denies chest pain or palpitations GI: Denies nausea, vomiting, or bowel changes Respiratory: Denies shortness of breath or cough Neuro: Denies dizziness, tremors Derm: Denies any rashes or pruritus MSK: Denies any muscle tightness or stiffness Psychotherapy None on this visit. Vital Signs Reviewed. Mental Status Examination General: Fair hygiene Speech: Sparse Thought processes: Circumstantial MSK: Severe restlessness, pacing up and down the hallway Thought content: Paranoid Abstract reasoning, and computation: Impaired Description of associations: Impaired Description of abnormal or psychotic thoughts: Denies any suicidal or homicidal ideation Judgment: Impaired Insight: Impaired Orientation: Alert and orientated 3 Cognition: Grossly normal Recent and remote memory: Intact Attention span and concentration: Intact Fund of knowledge: Adequate Mood: "Great" Affect: Flat with little reactivity Diagnoses Schizophrenia. Alcohol use disorder, unspecified. Psychogenic polydipsia. Assessment and Plan Schizophrenia: Continue Clozaril 200 mg nightly and 100 mg AM as well as Abilify. Alcohol use disorder: Unlikely to have withdrawal, last drink several weeks ago. Polydipsia: Sodium appears normal. Patient's water use is constrained. Does not appear to be having adverse effects from it. Clozaril appears to be more effective. Disposition The patient will be transferred to long-term care due to his treatment-resistant psychosis, significant impairment and inability to attend to his basic needs. Time Spent 15 minutes [id number]. Sunday Vital Signs Vital Signs Date Time Temp Pulse Resp B/P (MAP) Pulse Ox O2 Delivery O2 Flow Rate FiO2 02/18/19 06:47 97.9 89 12 131/79 (96) Room Air Current Medications Current Medications Medications (Trade) Dose Ordered Sig/Julian Route PRN Reason Start Time Stop Time Status Last Admin Dose Admin Acetaminophen (Tylenol Tab) 650 mg Q6HP PRN PO HEADACHE or DISCOMFORT 01/22/19 14:15 Al Hydrox/Mg Hydrox/Simethicone (Mylanta) 30 ml Q4HP PRN PO HEARTBURN/INDIGESTION 01/22/19 14:15 Aripiprazole (AbiLIFY) 2 mg QHS PO 01/26/19 21:00 01/30/19 11:04 DC 01/29/19 20:43 Aripiprazole (AbiLIFY) 5 mg QHS PO 01/30/19 21:00 02/07/19 08:56 DC 02/06/19 21:39 Aripiprazole (AbiLIFY) 10 mg QHS PO 02/07/19 21:00 02/11/19 11:55 DC 02/10/19 20:47 Aripiprazole (AbiLIFY) 15 mg QHS PO 02/11/19 21:00 02/17/19 20:44 Clozapine (Clozaril) 12.5 mg QHS PO 01/22/19 21:00 01/23/19 11:04 DC Clozapine (Clozaril) 25 mg QAM PO 01/31/19 09:00 02/03/19 12:55 DC 02/03/19 09:30 Clozapine (Clozaril) 25 mg QHS PO 01/23/19 21:00 01/24/19 14:05 DC 01/23/19 20:53 Clozapine (Clozaril) 50 mg QAM PO 02/04/19 09:00 02/10/19 12:11 DC 02/10/19 08:38 Clozapine (Clozaril) 50 mg QHS PO 01/24/19 21:00 01/26/19 13:26 DC 01/25/19 22:34 Clozapine (Clozaril) 75 mg BID PO 02/10/19 21:00 02/11/19 11:55 DC 02/11/19 10:10 Clozapine (Clozaril) 75 mg QAM PO 02/11/19 09:00 Cancel Clozapine (Clozaril) 75 mg QHS PO 01/26/19 21:00 01/27/19 13:04 DC 01/26/19 21:11 Clozapine (Clozaril) 75 mg QHS PO 02/07/19 21:00 02/10/19 20:03 DC 02/09/19 21:04 Clozapine (Clozaril) 87.5 mg BID PO 02/11/19 21:00 02/14/19 18:52 DC 02/14/19 08:51 Clozapine (Clozaril) 100 mg BID PO 02/14/19 21:00 02/18/19 09:01 Clozapine (Clozaril) 100 mg QHS PO 01/27/19 21:00 01/30/19 11:04 DC 01/29/19 20:43 Clozapine (Clozaril) 100 mg QHS PO 02/07/19 21:00 02/10/19 20:03 DC 02/09/19 21:04 Clozapine (Clozaril) 100 mg QHS PO 02/10/19 21:00 02/17/19 20:44 Clozapine (Clozaril) 150 mg QHS PO 01/30/19 21:00 02/07/19 08:56 DC 02/06/19 21:39 Lorazepam (Ativan) 1 mg Q4HP PRN PO ANXIETY/AGITATION 02/03/19 11:00 02/17/19 10:30 DC 02/04/19 08:56 Lorazepam (Ativan) 1 mg Q6HP PRN PO ANXIETY 01/25/19 16:45 02/01/19 16:44 DC 01/26/19 22:02 Magnesium Hydroxide (Milk Of Magnesia) 30 ml DAILYPRN PRN PO CONSTIPATION 01/22/19 14:15 Miscellaneous (Unresolved Clarification Entry) SEE LABEL COMMENTS DAILY XX 02/17/19 09:00 Miscellaneous (Unresolved Clarification Entry) SEE LABEL COMMENTS DAILY XX 02/10/19 09:00 02/10/19 17:42 DC Trazodone HCl (Desyrel) 50 mg QHSP PRN PO INSOMNIA 01/22/19 14:15 01/26/19 22:02 Allergies Coded Allergies: No Known Allergies (Unverified , 01/15/19) TINA MINAYA DO Feb 18, 2019 11:05
[2019-02-18 16:33] VITALS: BP 126/88
[2019-02-18] MEDS ORDERED: cloZAPine 100 MG TAB (S0136) PO SCH (21:00)
[2019-02-18] MEDS: cloZAPine 25 MG TAB (S0136) PO SCH (21:19)
[2019-02-19 06:49] VITALS: BP 120/90
[2019-02-19] MEDS: cloZAPine 100 MG TAB (S0136) PO SCH ×2 (08:31→21:05)
--- NOTE | 2019-02-19 11:04 | MHIPNPDOC ---
[facility] Progress Note Progress Note Inpatient Progress Note Mike Singletary MRN: N/A Date of : N/A Date of Service: 02/19/2019 History of Present Illness 33-year-old man with a history of schizophrenia with severe noncompliance resulting in a new psychotic episode. He has significant polydipsia and has required medical treatment on this presentation due to seizures. Interval History The patient met with today. He still has difficulty engaging in any meaningful conversation, continually stating that everything is "okay." He still remains isolated to his room, coming out to eat, but doing little else. He has notably been drinking less water and has not been making as many reported phone calls to his parents. He denies any problems with the medications, but simply constraints his answers to yes or no answers only. No behavioral problems overnight, has been attending groups. Review Of Systems Cardiovascular: Denies chest pain or palpitations GI: Denies nausea, vomiting, or bowel changes Respiratory: Denies shortness of breath or cough Neuro: Denies dizziness, tremors Derm: Denies any rashes or pruritus MSK: Denies any muscle tightness or stiffness Psychotherapy None on this visit. Vital Signs Reviewed. Mental Status Examination General: Fair hygiene Speech: Sparse Thought processes: Circumstantial MSK: Severe restlessness, pacing up and down the hallway Thought content: Paranoid Abstract reasoning, and computation: Impaired Description of associations: Impaired Description of abnormal or psychotic thoughts: Denies any suicidal or homicidal ideation Judgment: Impaired Insight: Impaired Orientation: Alert and orientated 3 Cognition: Grossly normal Recent and remote memory: Intact Attention span and concentration: Intact Fund of knowledge: Adequate Mood: "Great" Affect: Flat with little reactivity Diagnoses Schizophrenia. Alcohol use disorder, unspecified. Psychogenic polydipsia. Assessment and Plan Schizophrenia: Continue Clozaril 200 mg nightly and 100 mg AM as well as Abilify. Alcohol use disorder: Unlikely to have withdrawal, last drink several weeks ago. Polydipsia: Sodium appears normal. Patient's water use is constrained. Does not appear to be having adverse effects from it. Clozaril appears to be more effective. Disposition The patient will be transferred to long-term care due to his treatment-resistant psychosis, significant impairment and inability to attend to his basic needs. Time Spent 15 minutes [id number]. Sunday Inpatient Progress Note Mike Singletary MRN: N/A Date of : N/A Date of Service: 02/19/2019 History of Present Illness 33-year-old man with a history of schizophrenia with severe noncompliance resulting in a new psychotic episode. He has significant polydipsia and has required medical treatment on this presentation due to seizures. Interval History The patient met with today. He still has difficulty engaging in any meaningful conversation, continually stating that everything is "okay." He still remains isolated to his room, coming out to eat, but doing little else. He has notably been drinking less water and has not been making as many reported phone calls to his parents. He denies any problems with the medications, but simply constraints his answers to yes or no answers only. No behavioral problems overnight, has been attending groups. Review Of Systems Cardiovascular: Denies chest pain or palpitations GI: Denies nausea, vomiting, or bowel changes Respiratory: Denies shortness of breath or cough Neuro: Denies dizziness, tremors Derm: Denies any rashes or pruritus MSK: Denies any muscle tightness or stiffness Psychotherapy None on this visit. Vital Signs Reviewed. Mental Status Examination General: Fair hygiene Speech: Sparse Thought processes: Circumstantial MSK: Severe restlessness, pacing up and down the hallway Thought content: Paranoid Abstract reasoning, and computation: Impaired Description of associations: Impaired Description of abnormal or psychotic thoughts: Denies any suicidal or homicidal ideation Judgment: Impaired Insight: Impaired Orientation: Alert and orientated 3 Cognition: Grossly normal Recent and remote memory: Intact Attention span and concentration: Intact Fund of knowledge: Adequate Mood: "Great" Affect: Flat with little reactivity Diagnoses Schizophrenia. Alcohol use disorder, unspecified. Psychogenic polydipsia. Assessment and Plan Schizophrenia: Continue Clozaril 200 mg nightly and 100 mg AM as well as Abilify. Alcohol use disorder: Unlikely to have withdrawal, last drink several weeks ago. Polydipsia: Sodium appears normal. Patient's water use is constrained. Does not appear to be having adverse effects from it. Clozaril appears to be more effective. Disposition The patient will be transferred to long-term care due to his treatment-resistant psychosis, significant impairment and inability to attend to his basic needs. Time Spent 15 minutes [id number]. Sunday Vital Signs Vital Signs Date Time Temp Pulse Resp B/P (MAP) Pulse Ox O2 Delivery O2 Flow Rate FiO2 02/19/19 06:49 97.8 100 16 120/90 (100) 02/18/19 06:47 Room Air Current Medications Current Medications Medications (Trade) Dose Ordered Sig/Julian Route PRN Reason Start Time Stop Time Status Last Admin Dose Admin Acetaminophen (Tylenol Tab) 650 mg Q6HP PRN PO HEADACHE or DISCOMFORT 01/22/19 14:15 Al Hydrox/Mg Hydrox/Simethicone (Mylanta) 30 ml Q4HP PRN PO HEARTBURN/INDIGESTION 01/22/19 14:15 Aripiprazole (AbiLIFY) 2 mg QHS PO 01/26/19 21:00 01/30/19 11:04 DC 01/29/19 20:43 Aripiprazole (AbiLIFY) 5 mg QHS PO 01/30/19 21:00 02/07/19 08:56 DC 02/06/19 21:39 Aripiprazole (AbiLIFY) 10 mg QHS PO 02/07/19 21:00 02/11/19 11:55 DC 02/10/19 20:47 Aripiprazole (AbiLIFY) 15 mg QHS PO 02/11/19 21:00 02/18/19 21:19 Clozapine (Clozaril) 12.5 mg QHS PO 01/22/19 21:00 01/23/19 11:04 DC Clozapine (Clozaril) 25 mg QAM PO 01/31/19 09:00 02/03/19 12:55 DC 02/03/19 09:30 Clozapine (Clozaril) 25 mg QHS PO 02/18/19 21:00 02/18/19 21:19 Clozapine (Clozaril) 25 mg QHS PO 01/23/19 21:00 01/24/19 14:05 DC 01/23/19 20:53 Clozapine (Clozaril) 50 mg QAM PO 02/04/19 09:00 02/10/19 12:11 DC 02/10/19 08:38 Clozapine (Clozaril) 50 mg QHS PO 01/24/19 21:00 01/26/19 13:26 DC 01/25/19 22:34 Clozapine (Clozaril) 75 mg BID PO 02/10/19 21:00 02/11/19 11:55 DC 02/11/19 10:10 Clozapine (Clozaril) 75 mg QAM PO 02/11/19 09:00 Cancel Clozapine (Clozaril) 75 mg QHS PO 01/26/19 21:00 01/27/19 13:04 DC 01/26/19 21:11 Clozapine (Clozaril) 75 mg QHS PO 02/07/19 21:00 02/10/19 20:03 DC 02/09/19 21:04 Clozapine (Clozaril) 87.5 mg BID PO 02/11/19 21:00 02/14/19 18:52 DC 02/14/19 08:51 Clozapine (Clozaril) 100 mg BID PO 02/14/19 21:00 02/18/19 16:29 DC 02/18/19 09:01 Clozapine (Clozaril) 100 mg DAILY PO 02/19/19 09:00 02/19/19 08:31 Clozapine (Clozaril) 100 mg QHS PO 01/27/19 21:00 01/30/19 11:04 DC 01/29/19 20:43 Clozapine (Clozaril) 100 mg QHS PO 02/07/19 21:00 02/10/19 20:03 DC 02/09/19 21:04 Clozapine (Clozaril) 100 mg QHS PO 02/10/19 21:00 02/18/19 15:15 DC 02/17/19 20:44 Clozapine (Clozaril) 125 mg QHS PO 02/18/19 21:00 UNV Clozapine (Clozaril) 150 mg QHS PO 01/30/19 21:00 02/07/19 08:56 DC 02/06/19 21:39 Clozapine (Clozaril) 200 mg QHS PO 02/18/19 21:00 02/18/19 21:19 Lorazepam (Ativan) 1 mg Q4HP PRN PO ANXIETY/AGITATION 02/03/19 11:00 02/17/19 10:30 DC 02/04/19 08:56 Lorazepam (Ativan) 1 mg Q6HP PRN PO ANXIETY 01/25/19 16:45 02/01/19 16:44 DC 01/26/19 22:02 Magnesium Hydroxide (Milk Of Magnesia) 30 ml DAILYPRN PRN PO CONSTIPATION 01/22/19 14:15 Miscellaneous (Unresolved Clarification Entry) SEE LABEL COMMENTS DAILY XX 02/17/19 09:00 Miscellaneous (Unresolved Clarification Entry) SEE LABEL COMMENTS DAILY XX 02/10/19 09:00 02/10/19 17:42 DC Trazodone HCl (Desyrel) 50 mg QHSP PRN PO INSOMNIA 01/22/19 14:15 01/26/19 22:02 Allergies Coded Allergies: No Known Allergies (Unverified , 01/15/19) TINA MINAYA DO Feb 19, 2019 11:04
[2019-02-19 16:24] VITALS: BP 130/76
[2019-02-19] MEDS: cloZAPine 25 MG TAB (S0136) PO SCH (21:05)
[2019-02-20 05:56] VITALS: BP 145/95
[2019-02-20] MEDS: cloZAPine 100 MG TAB (S0136) PO SCH ×2 (09:29→21:56)
--- NOTE | 2019-02-20 10:15 | MHIPNPDOC ---
[facility] Progress Note Progress Note Inpatient Progress Note Mike Singletary MRN: N/A Date of : N/A Date of Service: 02/20/2019 History of Present Illness 33-year-old man with a history of schizophrenia with severe noncompliance resulting in a new psychotic episode. He has significant polydipsia and has required medical treatment on this presentation due to seizures. Interval History The patient is met with today. He reports no changes. He is continued on his medications. He reports that he otherwise is doing well, however, he is still isolative to his room, bizarrely staring into the dark, unable to much attend to any meaningful conversation. He appears to only exist room to eat, subsequently returns to his room. He still has difficulty making any decisions, simply stating "I don't know." He has drunken less water and appears to be more re asonable. He has been calling his parents more often, however, it appears that he has not been going to the excess he has had before. He has had no major behavior problems overnight. He has not attended any groups. Review Of Systems Cardiovascular: Denies chest pain or palpitations GI: Denies nausea, vomiting, or bowel changes Respiratory: Denies shortness of breath or cough Neuro: Denies dizziness, tremors Derm: Denies any rashes or pruritus MSK: Denies any muscle tightness or stiffness Psychotherapy None on this visit. Vital Signs Reviewed. Mental Status Examination General: Fair hygiene Speech: Sparse Thought processes: Circumstantial MSK: Severe restlessness, pacing up and down the hallway Thought content: Paranoid Abstract reasoning, and computation: Impaired Description of associations: Impaired Description of abnormal or psychotic thoughts: Denies any suicidal or homicidal ideation Judgment: Impaired Insight: Impaired Orientation: Alert and orientated 3 Cognition: Grossly normal Recent and remote memory: Intact Attention span and concentration: Intact Fund of knowledge: Adequate Mood: "Great" Affect: Flat with little reactivity Diagnoses Schizophrenia. Alcohol use disorder, unspecified. Psychogenic polydipsia. Assessment and Plan Schizophrenia: Increase Clozaril to 225 mg nightly and 100 mg daily. Continue Abilify. Alcohol use disorder: Unlikely to have withdrawal, last drink several weeks ago. Polydipsia: Sodium appears normal. Patient's water use is constrained. Does not appear to be having adverse effects from it. Clozaril appears to be more effective. Disposition The patient will be transferred to long-term care due to his treatment-resistant psychosis, significant impairment and inability to attend to his basic needs. Time Spent 15 minutes [id number]. Vital Signs Vital Signs Date Time Temp Pulse Resp B/P (MAP) Pulse Ox O2 Delivery O2 Flow Rate FiO2 02/20/19 09:05 Room Air 02/20/19 05:56 97.1 107 16 145/95 (112) Current Medications Current Medications Medications (Trade) Dose Ordered Sig/Julian Route PRN Reason Start Time Stop Time Status Last Admin Dose Admin Acetaminophen (Tylenol Tab) 650 mg Q6HP PRN PO HEADACHE or DISCOMFORT 01/22/19 14:15 Al Hydrox/Mg Hydrox/Simethicone (Mylanta) 30 ml Q4HP PRN PO HEARTBURN/INDIGESTION 01/22/19 14:15 Aripiprazole (AbiLIFY) 2 mg QHS PO 01/26/19 21:00 01/30/19 11:04 DC 01/29/19 20:43 Aripiprazole (AbiLIFY) 5 mg QHS PO 01/30/19 21:00 02/07/19 08:56 DC 02/06/19 21:39 Aripiprazole (AbiLIFY) 10 mg QHS PO 02/07/19 21:00 02/11/19 11:55 DC 02/10/19 20:47 Aripiprazole (AbiLIFY) 15 mg QHS PO 02/11/19 21:00 02/19/19 21:05 Clozapine (Clozaril) 12.5 mg QHS PO 01/22/19 21:00 01/23/19 11:04 DC Clozapine (Clozaril) 25 mg QAM PO 01/31/19 09:00 02/03/19 12:55 DC 02/03/19 09:30 Clozapine (Clozaril) 25 mg QHS PO 02/18/19 21:00 02/19/19 21:05 Clozapine (Clozaril) 25 mg QHS PO 01/23/19 21:00 01/24/19 14:05 DC 01/23/19 20:53 Clozapine (Clozaril) 50 mg QAM PO 02/04/19 09:00 02/10/19 12:11 DC 02/10/19 08:38 Clozapine (Clozaril) 50 mg QHS PO 01/24/19 21:00 01/26/19 13:26 DC 01/25/19 22:34 Clozapine (Clozaril) 75 mg BID PO 02/10/19 21:00 02/11/19 11:55 DC 02/11/19 10:10 Clozapine (Clozaril) 75 mg QAM PO 02/11/19 09:00 Cancel Clozapine (Clozaril) 75 mg QHS PO 01/26/19 21:00 01/27/19 13:04 DC 01/26/19 21:11 Clozapine (Clozaril) 75 mg QHS PO 02/07/19 21:00 02/10/19 20:03 DC 02/09/19 21:04 Clozapine (Clozaril) 87.5 mg BID PO 02/11/19 21:00 02/14/19 18:52 DC 02/14/19 08:51 Clozapine (Clozaril) 100 mg BID PO 02/14/19 21:00 02/18/19 16:29 DC 02/18/19 09:01 Clozapine (Clozaril) 100 mg DAILY PO 02/19/19 09:00 02/20/19 09:29 Clozapine (Clozaril) 100 mg QHS PO 01/27/19 21:00 01/30/19 11:04 DC 01/29/19 20:43 Clozapine (Clozaril) 100 mg QHS PO 02/07/19 21:00 02/10/19 20:03 DC 02/09/19 21:04 Clozapine (Clozaril) 100 mg QHS PO 02/10/19 21:00 02/18/19 15:15 DC 02/17/19 20:44 Clozapine (Clozaril) 125 mg QHS PO 02/18/19 21:00 UNV Clozapine (Clozaril) 150 mg QHS PO 01/30/19 21:00 02/07/19 08:56 DC 02/06/19 21:39 Clozapine (Clozaril) 200 mg QHS PO 02/18/19 21:00 02/19/19 21:05 Lorazepam (Ativan) 1 mg Q4HP PRN PO ANXIETY/AGITATION 02/03/19 11:00 02/17/19 10:30 DC 02/04/19 08:56 Lorazepam (Ativan) 1 mg Q6HP PRN PO ANXIETY 01/25/19 16:45 02/01/19 16:44 DC 01/26/19 22:02 Magnesium Hydroxide (Milk Of Magnesia) 30 ml DAILYPRN PRN PO CONSTIPATION 01/22/19 14:15 Miscellaneous (Unresolved Clarification Entry) SEE LABEL COMMENTS DAILY XX 02/17/19 09:00 Miscellaneous (Unresolved Clarification Entry) SEE LABEL COMMENTS DAILY XX 02/10/19 09:00 02/10/19 17:42 DC Trazodone HCl (Desyrel) 50 mg QHSP PRN PO INSOMNIA 01/22/19 14:15 01/26/19 22:02 Allergies Coded Allergies: No Known Allergies (Unverified , 01/15/19) TINA MINAYA DO Feb 20, 2019 10:15
[2019-02-20 15:51] VITALS: BP 150/90
[2019-02-20] MEDS: cloZAPine 25 MG TAB (S0136) PO SCH (21:56)
[2019-02-21 06:36] VITALS: BP 138/92
--- NOTE | 2019-02-21 07:45 | MHIPNPDOC ---
[facility] Progress Note Progress Note Inpatient Progress Note Mike Singletary MRN: N/A Date of : N/A Date of Service: 02/21/2019 History of Present Illness 33-year-old man with a history of schizophrenia with severe noncompliance resulting in a new psychotic episode. He has significant polydipsia and has required medical treatment on this presentation due to seizures. Interval History Patient is met with today. He continues to state "there are no problems." He remains isolative to his room, bizarre and paranoid. He has been more amenable to speaking, but still does not carry on any meaningful conversation as he continually avoids questions and eye contact, in general appears quite nervous. States everything is "fine" and generally answers yes or no questions. He has been drinking less water and no longer has been requiring a one-to-one for quite some time. He additionally has had no behavioral problems. He still does not attend groups and is not seen in the milieu very often. The patient is still unable to describe any symptoms and appears wholly unable to take care of himself other than staff prompting. He still requires quite a bit of encouragement to shower, engage in any other meaningful activities. Review Of Systems Cardiovascular: Denies chest pain or palpitations GI: Denies nausea, vomiting, or bowel changes Respiratory: Denies shortness of breath or cough Neuro: Denies dizziness, tremors Derm: Denies any rashes or pruritus MSK: Denies any muscle tightness or stiffness Psychotherapy None on this visit. Vital Signs Reviewed. Mental Status Examination General: Fair hygiene Speech: Sparse Thought processes: Circumstantial MSK: Severe restlessness, pacing up and down the hallway Thought content: Paranoid Abstract reasoning, and computation: Impaired Description of associations: Impaired Description of abnormal or psychotic thoughts: Denies any suicidal or homicidal ideation Judgment: Impaired Insight: Impaired Orientation: Alert and orientated 3 Cognition: Grossly normal Recent and remote memory: Intact Attention span and concentration: Intact Fund of knowledge: Adequate Mood: "Great" Affect: Flat with little reactivity Diagnoses Schizophrenia. Alcohol use disorder, unspecified. Psychogenic polydipsia. Assessment and Plan Schizophrenia: Increase Clozaril to 250 then 275 mg over the weekend, continue 100 mg daily. Continue Abilify. We will order ANC early next week. Previous ANCs have been normal. Alcohol use disorder: Unlikely to have withdrawal, last drink several weeks ago. Polydipsia: Sodium appears normal. Patient's water use is constrained. Does not appear to be having adverse effects from it. Clozaril appears to be more effective. Disposition The patient will need further inpatient admission due to severely impairing psychosis. He is slated to go to [facility] if he is accepted for long-term treatment. The patient has had the hearing and is awaiting final decision. Time Spent 15 minutes [id number]. Sunday Vital Signs Vital Signs Date Time Temp Pulse Resp B/P (MAP) Pulse Ox O2 Delivery O2 Flow Rate FiO2 02/21/19 06:36 98.6 104 18 138/92 (107) Room Air Current Medications Current Medications Medications (Trade) Dose Ordered Sig/Julian Route PRN Reason Start Time Stop Time Status Last Admin Dose Admin Acetaminophen (Tylenol Tab) 650 mg Q6HP PRN PO HEADACHE or DISCOMFORT 01/22/19 14:15 Al Hydrox/Mg Hydrox/Simethicone (Mylanta) 30 ml Q4HP PRN PO HEARTBURN/INDIGESTION 01/22/19 14:15 Aripiprazole (AbiLIFY) 2 mg QHS PO 01/26/19 21:00 01/30/19 11:04 DC 01/29/19 20:43 Aripiprazole (AbiLIFY) 5 mg QHS PO 01/30/19 21:00 02/07/19 08:56 DC 02/06/19 21:39 Aripiprazole (AbiLIFY) 10 mg QHS PO 02/07/19 21:00 02/11/19 11:55 DC 02/10/19 20:47 Aripiprazole (AbiLIFY) 15 mg QHS PO 02/11/19 21:00 02/20/19 21:56 Clozapine (Clozaril) 12.5 mg QHS PO 01/22/19 21:00 01/23/19 11:04 DC Clozapine (Clozaril) 25 mg QAM PO 01/31/19 09:00 02/03/19 12:55 DC 02/03/19 09:30 Clozapine (Clozaril) 25 mg QHS PO 02/18/19 21:00 02/20/19 21:56 Clozapine (Clozaril) 25 mg QHS PO 01/23/19 21:00 01/24/19 14:05 DC 01/23/19 20:53 Clozapine (Clozaril) 50 mg QAM PO 02/04/19 09:00 02/10/19 12:11 DC 02/10/19 08:38 Clozapine (Clozaril) 50 mg QHS PO 01/24/19 21:00 01/26/19 13:26 DC 01/25/19 22:34 Clozapine (Clozaril) 75 mg BID PO 02/10/19 21:00 02/11/19 11:55 DC 02/11/19 10:10 Clozapine (Clozaril) 75 mg QAM PO 02/11/19 09:00 Cancel Clozapine (Clozaril) 75 mg QHS PO 01/26/19 21:00 01/27/19 13:04 DC 01/26/19 21:11 Clozapine (Clozaril) 75 mg QHS PO 02/07/19 21:00 02/10/19 20:03 DC 02/09/19 21:04 Clozapine (Clozaril) 87.5 mg BID PO 02/11/19 21:00 02/14/19 18:52 DC 02/14/19 08:51 Clozapine (Clozaril) 100 mg BID PO 02/14/19 21:00 02/18/19 16:29 DC 02/18/19 09:01 Clozapine (Clozaril) 100 mg DAILY PO 02/19/19 09:00 02/20/19 09:29 Clozapine (Clozaril) 100 mg QHS PO 01/27/19 21:00 01/30/19 11:04 DC 01/29/19 20:43 Clozapine (Clozaril) 100 mg QHS PO 02/07/19 21:00 02/10/19 20:03 DC 02/09/19 21:04 Clozapine (Clozaril) 100 mg QHS PO 02/10/19 21:00 02/18/19 15:15 DC 02/17/19 20:44 Clozapine (Clozaril) 125 mg QHS PO 02/18/19 21:00 UNV Clozapine (Clozaril) 150 mg QHS PO 01/30/19 21:00 02/07/19 08:56 DC 02/06/19 21:39 Clozapine (Clozaril) 200 mg QHS PO 02/18/19 21:00 02/20/19 21:56 Lorazepam (Ativan) 1 mg Q4HP PRN PO ANXIETY/AGITATION 02/03/19 11:00 02/17/19 10:30 DC 02/04/19 08:56 Lorazepam (Ativan) 1 mg Q6HP PRN PO ANXIETY 01/25/19 16:45 02/01/19 16:44 DC 01/26/19 22:02 Magnesium Hydroxide (Milk Of Magnesia) 30 ml DAILYPRN PRN PO CONSTIPATION 01/22/19 14:15 Miscellaneous (Unresolved Clarification Entry) SEE LABEL COMMENTS DAILY XX 02/17/19 09:00 Miscellaneous (Unresolved Clarification Entry) SEE LABEL COMMENTS DAILY XX 02/10/19 09:00 02/10/19 17:42 DC Trazodone HCl (Desyrel) 50 mg QHSP PRN PO INSOMNIA 01/22/19 14:15 01/26/19 22:02 Allergies Coded Allergies: No Known Allergies (Unverified , 01/15/19) TINA MINAYA DO Feb 21, 2019 07:45
[2019-02-21 08:02] VITALS: BP 138/92
[2019-02-21] MEDS: cloZAPine 100 MG TAB (S0136) PO SCH ×2 (08:32→20:25)
[2019-02-21 15:56] VITALS: BP 122/84
[2019-02-21] MEDS: cloZAPine 25 MG TAB (S0136) PO SCH (20:25)
[2019-02-21] MEDS ORDERED: cloZAPine 100 MG TAB (S0136) PO SCH (21:00)
[2019-02-22 06:46] VITALS: BP 135/84
[2019-02-22] MEDS: cloZAPine 100 MG TAB (S0136) PO SCH ×2 (08:37→22:07)
[2019-02-22 16:58] VITALS: BP 128/82
[2019-02-22] MEDS: cloZAPine 25 MG TAB (S0136) PO SCH (22:07)
[2019-02-23 06:46] VITALS: BP 129/84
[2019-02-23] MEDS: cloZAPine 100 MG TAB (S0136) PO SCH ×2 (09:20→20:23)
[2019-02-23 16:21] VITALS: BP 134/92
[2019-02-23] MEDS: cloZAPine 25 MG TAB (S0136) PO SCH (20:22)
[2019-02-24 06:51] VITALS: BP 126/85
--- NOTE | 2019-02-24 06:53 | MHIPNPDOC ---
[facility] Progress Note Progress Note Inpatient Progress Note Mike Singletary MRN: N/A Date of : N/A Date of Service: 02/24/2019 History of Present Illness 33-year-old man with a history of schizophrenia with severe noncompliance resulting in a new psychotic episode. He has significant polydipsia and has required medical treatment on this presentation due to seizures. Interval History The patient is met with today. He's reportedly done better. He's been more able to be in the milieu. He's gone to a group or two over the weekend with significant prompting. He has become more social and able to talk about his paranoid thoughts with some of the nursing staff, however, when I meet with him today he's still guarded and ambivalent about speaking about his paranoid thoughts. He continues to report everything is "fine" and is evasive about answering questions. He reports he feels the Clozaril is helpful and grossly denies all side effects of medications. He's had no behavioral problems and has otherwise been doing well. There appears to be some concern about some mild tachycardia, but no blood pressure increase. We'll continue to monitor. Review Of Systems Cardiovascular: Denies chest pain or palpitations GI: Denies nausea, vomiting, or bowel changes Respiratory: Denies shortness of breath or cough Neuro: Denies dizziness, tremors Derm: Denies any rashes or pruritus MSK: Denies any muscle tightness or stiffness Psychotherapy None on this visit. Vital Signs Reviewed. Mental Status Examination General: Fair hygiene Speech: Sparse Thought processes: Circumstantial MSK: Severe restlessness, pacing up and down the hallway Thought content: Paranoid Abstract reasoning, and computation: Impaired Description of associations: Impaired Description of abnormal or psychotic thoughts: Denies any suicidal or homicidal ideation Judgment: Impaired Insight: Impaired Orientation: Alert and orientated 3 Cognition: Grossly normal Recent and remote memory: Intact Attention span and concentration: Intact Fund of knowledge: Adequate Mood: "Great" Affect: Flat with little reactivity Diagnoses Schizophrenia. Alcohol use disorder, unspecified. Psychogenic polydipsia. Assessment and Plan Schizophrenia: Increase Clozaril to 300 mg nightly, continue 100 mg daily. Increase Abilify to 15 mg daily. ANC is normal today. 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 Alcohol use disorder: Unlikely to have withdrawal, last drink several weeks ago. Polydipsia: Sodium appears normal. Patient's water use is constrained. Does not appear to be having adverse effects from it. Clozaril appears to be more effective. Disposition The patient will need a further inpatient admission due to severely impairing psychosis making him unable to care for himself. He is still having a strenuous course, being sent to [place] of which currently there is an appeal based on a denial. Time Spent 15 minutes Sunday Vital Signs Vital Signs Date Time Temp Pulse Resp B/P (MAP) Pulse Ox O2 Delivery O2 Flow Rate FiO2 02/24/19 06:51 97.9 91 12 126/85 (99) Room Air Current Medications Current Medications Medications (Trade) Dose Ordered Sig/Julian Route PRN Reason Start Time Stop Time Status Last Admin Dose Admin Acetaminophen (Tylenol Tab) 650 mg Q6HP PRN PO HEADACHE or DISCOMFORT 01/22/19 14:15 Al Hydrox/Mg Hydrox/Simethicone (Mylanta) 30 ml Q4HP PRN PO HEARTBURN/INDIGESTION 01/22/19 14:15 Aripiprazole (AbiLIFY) 2 mg QHS PO 01/26/19 21:00 01/30/19 11:04 DC 01/29/19 20:43 Aripiprazole (AbiLIFY) 5 mg QHS PO 01/30/19 21:00 02/07/19 08:56 DC 02/06/19 21:39 Aripiprazole (AbiLIFY) 10 mg QHS PO 02/07/19 21:00 02/11/19 11:55 DC 02/10/19 20:47 Aripiprazole (AbiLIFY) 15 mg QHS PO 02/11/19 21:00 02/23/19 20:24 Clozapine (Clozaril) 12.5 mg QHS PO 01/22/19 21:00 01/23/19 11:04 DC Clozapine (Clozaril) 25 mg QAM PO 01/31/19 09:00 02/03/19 12:55 DC 02/03/19 09:30 Clozapine (Clozaril) 25 mg QHS PO 02/18/19 21:00 02/21/19 08:38 DC 02/20/19 21:56 Clozapine (Clozaril) 25 mg QHS PO 01/23/19 21:00 01/24/19 14:05 DC 01/23/19 20:53 Clozapine (Clozaril) 50 mg QAM PO 02/04/19 09:00 02/10/19 12:11 DC 02/10/19 08:38 Clozapine (Clozaril) 50 mg QHS PO 01/24/19 21:00 01/26/19 13:26 DC 01/25/19 22:34 Clozapine (Clozaril) 75 mg BID PO 02/10/19 21:00 02/11/19 11:55 DC 02/11/19 10:10 Clozapine (Clozaril) 75 mg QAM PO 02/11/19 09:00 Cancel Clozapine (Clozaril) 75 mg QHS PO 02/21/19 21:00 02/23/19 20:22 Clozapine (Clozaril) 75 mg QHS PO 01/26/19 21:00 01/27/19 13:04 DC 01/26/19 21:11 Clozapine (Clozaril) 75 mg QHS PO 02/07/19 21:00 02/10/19 20:03 DC 02/09/19 21:04 Clozapine (Clozaril) 87.5 mg BID PO 02/11/19 21:00 02/14/19 18:52 DC 02/14/19 08:51 Clozapine (Clozaril) 100 mg BID PO 02/14/19 21:00 02/18/19 16:29 DC 02/18/19 09:01 Clozapine (Clozaril) 100 mg DAILY PO 02/19/19 09:00 02/23/19 09:20 Clozapine (Clozaril) 100 mg QHS PO 01/27/19 21:00 01/30/19 11:04 DC 01/29/19 20:43 Clozapine (Clozaril) 100 mg QHS PO 02/07/19 21:00 02/10/19 20:03 DC 02/09/19 21:04 Clozapine (Clozaril) 100 mg QHS PO 02/10/19 21:00 02/18/19 15:15 DC 02/17/19 20:44 Clozapine (Clozaril) 125 mg QHS PO 02/18/19 21:00 UNV Clozapine (Clozaril) 150 mg QHS PO 01/30/19 21:00 02/07/19 08:56 DC 02/06/19 21:39 Clozapine (Clozaril) 200 mg QHS PO 02/18/19 21:00 02/23/19 20:23 Clozapine (Clozaril) 275 mg QHS PO 02/21/19 21:00 UNV Lorazepam (Ativan) 1 mg Q4HP PRN PO ANXIETY/AGITATION 02/03/19 11:00 02/17/19 10:30 DC 02/04/19 08:56 Lorazepam (Ativan) 1 mg Q6HP PRN PO ANXIETY 01/25/19 16:45 02/01/19 16:44 DC 01/26/19 22:02 Magnesium Hydroxide (Milk Of Magnesia) 30 ml DAILYPRN PRN PO CONSTIPATION 01/22/19 14:15 Miscellaneous (Unresolved Clarification Entry) SEE LABEL COMMENTS DAILY XX 02/17/19 09:00 02/21/19 10:32 DC Miscellaneous (Unresolved Clarification Entry) SEE LABEL COMMENTS DAILY XX 02/10/19 09:00 02/10/19 17:42 DC Trazodone HCl (Desyrel) 50 mg QHSP PRN PO INSOMNIA 01/22/19 14:15 01/26/19 22:02 Allergies Coded Allergies: No Known Allergies (Unverified , 01/15/19) TINA MINAYA DO Feb 24, 2019 06:53
[2019-02-24 09:02] LABS: BASO % 0.6 % (0.0-1.0); EOS # 0.4 10^3/uL (0.0-0.5); EOS % 6.3 % (0.0-3.0); HEMATOCRIT 46.6 % (42.0-52.0); HEMOGLOBIN 15.3 g/dl (13.5-17.5); LYMPH # 2.5 10^3/uL (1.5-5.0); LYMPH % 39.4 % (24.0-44.0); MEAN CORPUSCULAR HEMOGLOBIN 29.3 pg (27.0-33.0); MEAN CORPUSCULAR HGB CONC 32.8 g/dl (32.0-36.5); MEAN CORPUSCULAR VOLUME 89.1 fl (80.0-96.0); MONO # 0.6 10^3/uL (0.0-0.8); MONO % 9.6 % (0.0-5.0); NEUTROPHILS # 2.8 10^3/uL (1.5-8.5); NEUTROPHILS % 43.8 % (36.0-66.0); PLATELET COUNT, AUTOMATED 281 10^3/uL (150-450); RED BLOOD COUNT 5.23 10^6/uL (4.30-6.10); WHITE BLOOD COUNT 6.4 10^3/uL (4.0-10.0)
[2019-02-24] MEDS: cloZAPine 100 MG TAB (S0136) PO SCH ×2 (09:50→20:44)
[2019-02-24] MEDS ORDERED: PROPRANOLOL 10 MG TAB PO ONE (16:00)
[2019-02-24 16:50] VITALS: BP 102/81
[2019-02-24] MEDS: ARIPiprazole 10 MG TAB PO SCH (20:44)
--- NOTE | 2019-02-24 21:33 | ECGEPIP ---
[facility] Test Date: 2019-02-24 Pat Name: ALEAH MELENDREZ Department: Room: [place] [address] Gender: Male Apartment Le[employer]ist: : [id number] Requested By: TINA MINAYA Order Number: [id number] Reading MD: Alessandro Millard Measurements Intervals [place] Rate: 95 P: 25 AK: 140 QRS: 64 QRSD: 91 T: 18 QT: 331 QTc: 417 Interpretive Statements SINUS RHYTHM Electronically Signed on 02-24-2019 21:33:22 EST by Alessandro Millard
[2019-02-25 06:55] VITALS: BP 120/88
[2019-02-25] MEDS: cloZAPine 100 MG TAB (S0136) PO SCH ×2 (08:12→21:47)
--- NOTE | 2019-02-25 09:49 | MHIPNPDOC ---
[facility] Progress Note Progress Note Inpatient Progress Note Mike Singletary MRN: N/A Date of : N/A Date of Service: 02/25/2019 History of Present Illness 33-year-old man with a history of schizophrenia with severe noncompliance resulting in a new psychotic episode. He has significant polydipsia and has required medical treatment on this presentation due to seizures. Interval History The patient was seen today. He continues to reinforce the same statements that he is "doing well." He continues to be isolative to his room, bizarrely staring into the dark or sleeping, however, he denies any symptoms, has not attended any groups and still remains quite hidden away, completely guarded and even when attempted to be spoken to more quickly, he becomes quite frightened and tries to remove himself from the situation. Appears to be still quite paranoid. No behavioral problems overnight. Review Of Systems Cardiovascular: Denies chest pain or palpitations GI: Denies nausea, vomiting, or bowel changes Respiratory: Denies shortness of breath or cough Neuro: Denies dizziness, tremors Derm: Denies any rashes or pruritus MSK: Denies any muscle tightness or stiffness Psychotherapy None on this visit. Vital Signs Reviewed. Mental Status Examination General: Fair hygiene Speech: Sparse Thought processes: Circumstantial MSK: Severe restlessness, pacing up and down the hallway Thought content: Paranoid Abstract reasoning, and computation: Impaired Description of associations: Impaired Description of abnormal or psychotic thoughts: Denies any suicidal or homicidal ideation Judgment: Impaired Insight: Impaired Orientation: Alert and orientated 3 Cognition: Grossly normal Recent and remote memory: Intact Attention span and concentration: Intact Fund of knowledge: Adequate Mood: "Great" Affect: Flat with little reactivity Diagnoses Schizophrenia. Alcohol use disorder, unspecified. Psychogenic polydipsia. Assessment and Plan Schizophrenia: Continue Clozaril 300 mg nightly/100 mg daily. Increase Abilify to 20 mg daily. Tachycardia appears to resolved with no further recurrence. We'll defer workup for cardiomyopathy as this does not appear to have any symptoms or signs. Alcohol use disorder: Unlikely to have withdrawal, last drink several weeks ago. Polydipsia: Sodium appears normal. Patient's water use is constrained. Does not appear to be having adverse effects from it. Clozaril appears to be more effective. Disposition The patient will need a further inpatient admission due to severely impairing psychosis making him unable to care for himself. He is still having a strenuous course, being sent to [place] of which currently there is an appeal based on a denial. Time Spent 15 minutes Sunday Vital Signs Vital Signs Date Time Temp Pulse Resp B/P (MAP) Pulse Ox O2 Delivery O2 Flow Rate FiO2 02/25/19 06:55 97.6 70 14 120/88 (99) 02/24/19 06:51 Room Air Current Medications Current Medications Medications (Trade) Dose Ordered Sig/Julian Route PRN Reason Start Time Stop Time Status Last Admin Dose Admin Acetaminophen (Tylenol Tab) 650 mg Q6HP PRN PO HEADACHE or DISCOMFORT 01/22/19 14:15 Al Hydrox/Mg Hydrox/Simethicone (Mylanta) 30 ml Q4HP PRN PO HEARTBURN/INDIGESTION 01/22/19 14:15 Aripiprazole (AbiLIFY) 2 mg QHS PO 01/26/19 21:00 01/30/19 11:04 DC 01/29/19 20:43 Aripiprazole (AbiLIFY) 5 mg QHS PO 01/30/19 21:00 02/07/19 08:56 DC 02/06/19 21:39 Aripiprazole (AbiLIFY) 10 mg QHS PO 02/07/19 21:00 02/11/19 11:55 DC 02/10/19 20:47 Aripiprazole (AbiLIFY) 15 mg QHS PO 02/11/19 21:00 02/24/19 07:45 DC 02/23/19 20:24 Aripiprazole (AbiLIFY) 20 mg QHS PO 02/24/19 21:00 02/24/19 20:44 Clozapine (Clozaril) 12.5 mg QHS PO 01/22/19 21:00 01/23/19 11:04 DC Clozapine (Clozaril) 25 mg QAM PO 01/31/19 09:00 02/03/19 12:55 DC 02/03/19 09:30 Clozapine (Clozaril) 25 mg QHS PO 02/18/19 21:00 02/21/19 08:38 DC 02/20/19 21:56 Clozapine (Clozaril) 25 mg QHS PO 01/23/19 21:00 01/24/19 14:05 DC 01/23/19 20:53 Clozapine (Clozaril) 50 mg QAM PO 02/04/19 09:00 02/10/19 12:11 DC 02/10/19 08:38 Clozapine (Clozaril) 50 mg QHS PO 01/24/19 21:00 01/26/19 13:26 DC 01/25/19 22:34 Clozapine (Clozaril) 75 mg BID PO 02/10/19 21:00 02/11/19 11:55 DC 02/11/19 10:10 Clozapine (Clozaril) 75 mg QAM PO 02/11/19 09:00 Cancel Clozapine (Clozaril) 75 mg QHS PO 02/21/19 21:00 02/24/19 07:44 DC 02/23/19 20:22 Clozapine (Clozaril) 75 mg QHS PO 01/26/19 21:00 01/27/19 13:04 DC 01/26/19 21:11 Clozapine (Clozaril) 75 mg QHS PO 02/07/19 21:00 02/10/19 20:03 DC 02/09/19 21:04 Clozapine (Clozaril) 87.5 mg BID PO 02/11/19 21:00 02/14/19 18:52 DC 02/14/19 08:51 Clozapine (Clozaril) 100 mg BID PO 02/14/19 21:00 02/18/19 16:29 DC 02/18/19 09:01 Clozapine (Clozaril) 100 mg DAILY PO 02/19/19 09:00 02/25/19 08:12 Clozapine (Clozaril) 100 mg QHS PO 01/27/19 21:00 01/30/19 11:04 DC 01/29/19 20:43 Clozapine (Clozaril) 100 mg QHS PO 02/07/19 21:00 02/10/19 20:03 DC 02/09/19 21:04 Clozapine (Clozaril) 100 mg QHS PO 02/10/19 21:00 02/18/19 15:15 DC 02/17/19 20:44 Clozapine (Clozaril) 125 mg QHS PO 02/18/19 21:00 UNV Clozapine (Clozaril) 150 mg QHS PO 01/30/19 21:00 02/07/19 08:56 DC 02/06/19 21:39 Clozapine (Clozaril) 200 mg QHS PO 02/18/19 21:00 02/24/19 07:44 DC 02/23/19 20:23 Clozapine (Clozaril) 275 mg QHS PO 02/21/19 21:00 UNV Clozapine (Clozaril) 300 mg QHS PO 02/24/19 21:00 02/24/19 20:44 Lorazepam (Ativan) 1 mg Q4HP PRN PO ANXIETY/AGITATION 02/03/19 11:00 02/17/19 10:30 DC 02/04/19 08:56 Lorazepam (Ativan) 1 mg Q6HP PRN PO ANXIETY 01/25/19 16:45 02/01/19 16:44 DC 01/26/19 22:02 Magnesium Hydroxide (Milk Of Magnesia) 30 ml DAILYPRN PRN PO CONSTIPATION 01/22/19 14:15 Miscellaneous (Unresolved Clarification Entry) SEE LABEL COMMENTS DAILY XX 02/25/19 09:00 Miscellaneous (Unresolved Clarification Entry) SEE LABEL COMMENTS DAILY XX 02/17/19 09:00 02/21/19 10:32 DC Miscellaneous (Unresolved Clarification Entry) SEE LABEL COMMENTS DAILY XX 02/10/19 09:00 02/10/19 17:42 DC Trazodone HCl (Desyrel) 50 mg QHSP PRN PO INSOMNIA 01/22/19 14:15 01/26/19 22:02 Allergies Coded Allergies: No Known Allergies (Unverified , 01/15/19) TINA MINAYA DO Feb 25, 2019 09:49
[2019-02-25 15:42] VITALS: BP 134/76
[2019-02-25] MEDS: ARIPiprazole 10 MG TAB PO SCH (21:47)
[2019-02-26 06:35] VITALS: BP 110/78
--- NOTE | 2019-02-26 08:06 | MHIPNPDOC ---
[facility] Progress Note Progress Note Inpatient Progress Note Mike Singletary MRN: N/A Date of : N/A Date of Service: 02/26/2019 History of Present Illness 33-year-old man with a history of schizophrenia with severe noncompliance resulting in a new psychotic episode. He has significant polydipsia and has required medical treatment on this presentation due to seizures. Interval History The patient is met with today. He is moved to his new room, but is still quite isolative, paranoid and unable to engage in a meaningful conversation. He continues to hit a point where he is unable to explain anything, simply staring off the distance. He has become somewhat more open in the milieu, but overall still is having difficulty taking care of himself. His thirst and multiple calls appear to have abated for now. He has had no major behavioral problems ov ernight. Review Of Systems Cardiovascular: Denies chest pain or palpitations GI: Denies nausea, vomiting, or bowel changes Respiratory: Denies shortness of breath or cough Neuro: Denies dizziness, tremors Derm: Denies any rashes or pruritus MSK: Denies any muscle tightness or stiffness Psychotherapy None on this visit. Vital Signs Reviewed. Mental Status Examination General: Fair hygiene Speech: Sparse Thought processes: Circumstantial MSK: Severe restlessness, pacing up and down the hallway Thought content: Paranoid Abstract reasoning, and computation: Impaired Description of associations: Impaired Description of abnormal or psychotic thoughts: Denies any suicidal or homicidal ideation Judgment: Impaired Insight: Impaired Orientation: Alert and orientated 3 Cognition: Grossly normal Recent and remote memory: Intact Attention span and concentration: Intact Fund of knowledge: Adequate Mood: "Great" Affect: Flat with little reactivity Diagnoses Schizophrenia. Alcohol use disorder, unspecified. Psychogenic polydipsia. Assessment and Plan Schizophrenia: Continue Clazuril 300 mg/100 mg as well as Abilify 20 mg daily. Alcohol use disorder: Unlikely to have withdrawal, last drink several weeks ago. Polydipsia: Sodium appears normal. Patient's water use is constrained. Does not appear to be having adverse effects from it. Clozaril appears to be more effective. Disposition The patient will need a further inpatient admission due to severely impairing psychosis making him unable to care for himself. He is still having a strenuous course, being sent to [place] of which currently there is an appeal based on a denial. Time Spent 15 minutes Sunday Vital Signs Vital Signs Date Time Temp Pulse Resp B/P (MAP) Pulse Ox O2 Delivery O2 Flow Rate FiO2 02/26/19 06:35 97.7 88 12 110/78 (89) 02/24/19 06:51 Room Air Current Medications Current Medications Medications (Trade) Dose Ordered Sig/Julian Route PRN Reason Start Time Stop Time Status Last Admin Dose Admin Acetaminophen (Tylenol Tab) 650 mg Q6HP PRN PO HEADACHE or DISCOMFORT 01/22/19 14:15 Al Hydrox/Mg Hydrox/Simethicone (Mylanta) 30 ml Q4HP PRN PO HEARTBURN/INDIGESTION 01/22/19 14:15 Aripiprazole (AbiLIFY) 2 mg QHS PO 01/26/19 21:00 01/30/19 11:04 DC 01/29/19 20:43 Aripiprazole (AbiLIFY) 5 mg QHS PO 01/30/19 21:00 02/07/19 08:56 DC 02/06/19 21:39 Aripiprazole (AbiLIFY) 10 mg QHS PO 02/07/19 21:00 02/11/19 11:55 DC 02/10/19 20:47 Aripiprazole (AbiLIFY) 15 mg QHS PO 02/11/19 21:00 02/24/19 07:45 DC 02/23/19 20:24 Aripiprazole (AbiLIFY) 20 mg QHS PO 02/24/19 21:00 02/25/19 21:47 Clozapine (Clozaril) 12.5 mg QHS PO 01/22/19 21:00 01/23/19 11:04 DC Clozapine (Clozaril) 25 mg QAM PO 01/31/19 09:00 02/03/19 12:55 DC 02/03/19 09:30 Clozapine (Clozaril) 25 mg QHS PO 02/18/19 21:00 02/21/19 08:38 DC 02/20/19 21:56 Clozapine (Clozaril) 25 mg QHS PO 01/23/19 21:00 01/24/19 14:05 DC 01/23/19 20:53 Clozapine (Clozaril) 50 mg QAM PO 02/04/19 09:00 02/10/19 12:11 DC 02/10/19 08:38 Clozapine (Clozaril) 50 mg QHS PO 01/24/19 21:00 01/26/19 13:26 DC 01/25/19 22:34 Clozapine (Clozaril) 75 mg BID PO 02/10/19 21:00 02/11/19 11:55 DC 02/11/19 10:10 Clozapine (Clozaril) 75 mg QAM PO 02/11/19 09:00 Cancel Clozapine (Clozaril) 75 mg QHS PO 02/21/19 21:00 02/24/19 07:44 DC 02/23/19 20:22 Clozapine (Clozaril) 75 mg QHS PO 01/26/19 21:00 01/27/19 13:04 DC 01/26/19 21:11 Clozapine (Clozaril) 75 mg QHS PO 02/07/19 21:00 02/10/19 20:03 DC 02/09/19 21:04 Clozapine (Clozaril) 87.5 mg BID PO 02/11/19 21:00 02/14/19 18:52 DC 02/14/19 08:51 Clozapine (Clozaril) 100 mg BID PO 02/14/19 21:00 02/18/19 16:29 DC 02/18/19 09:01 Clozapine (Clozaril) 100 mg DAILY PO 02/19/19 09:00 02/25/19 08:12 Clozapine (Clozaril) 100 mg QHS PO 01/27/19 21:00 01/30/19 11:04 DC 01/29/19 20:43 Clozapine (Clozaril) 100 mg QHS PO 02/07/19 21:00 02/10/19 20:03 DC 02/09/19 21:04 Clozapine (Clozaril) 100 mg QHS PO 02/10/19 21:00 02/18/19 15:15 DC 02/17/19 20:44 Clozapine (Clozaril) 125 mg QHS PO 02/18/19 21:00 UNV Clozapine (Clozaril) 150 mg QHS PO 01/30/19 21:00 02/07/19 08:56 DC 02/06/19 21:39 Clozapine (Clozaril) 200 mg QHS PO 02/18/19 21:00 02/24/19 07:44 DC 02/23/19 20:23 Clozapine (Clozaril) 275 mg QHS PO 02/21/19 21:00 UNV Clozapine (Clozaril) 300 mg QHS PO 02/24/19 21:00 02/25/19 21:47 Lorazepam (Ativan) 1 mg Q4HP PRN PO ANXIETY/AGITATION 02/03/19 11:00 02/17/19 10:30 DC 02/04/19 08:56 Lorazepam (Ativan) 1 mg Q6HP PRN PO ANXIETY 01/25/19 16:45 02/01/19 16:44 DC 01/26/19 22:02 Magnesium Hydroxide (Milk Of Magnesia) 30 ml DAILYPRN PRN PO CONSTIPATION 01/22/19 14:15 Miscellaneous (Unresolved Clarification Entry) SEE LABEL COMMENTS DAILY XX 02/25/19 09:00 02/25/19 13:32 DC Miscellaneous (Unresolved Clarification Entry) SEE LABEL COMMENTS DAILY XX 02/17/19 09:00 02/21/19 10:32 DC Miscellaneous (Unresolved Clarification Entry) SEE LABEL COMMENTS DAILY XX 02/10/19 09:00 02/10/19 17:42 DC Trazodone HCl (Desyrel) 50 mg QHSP PRN PO INSOMNIA 01/22/19 14:15 01/26/19 22:02 Allergies Coded Allergies: No Known Allergies (Unverified , 01/15/19) TINA MINAYA DO Feb 26, 2019 08:06
[2019-02-26] MEDS: cloZAPine 100 MG TAB (S0136) PO SCH ×2 (09:31→21:36)
[2019-02-26] MEDS ORDERED: cloNIDine 0.05MG PER 1/2 TABLET PO PRN (10:15)
[2019-02-26 17:16] VITALS: BP 139/82
[2019-02-26] MEDS: ARIPiprazole 10 MG TAB PO SCH (21:37)
[2019-02-27 06:01] VITALS: BP 137/82
--- NOTE | 2019-02-27 08:14 | MHIPNPDOC ---
[facility] Progress Note Progress Note Inpatient Progress Note Mike Singletary MRN: N/A Date of : N/A Date of Service: 02/27/2019 History of Present Illness 33-year-old man with a history of schizophrenia with severe noncompliance resulting in a new psychotic episode. He has significant polydipsia and has required medical treatment on this presentation due to seizures. Interval History The patient is met with today. He is brought out of his room in order to try to socialize him more. He reports that "everything is fine." He no longer has any significant drinking behaviors and has not been calling his parents excessively. He continues to be somewhat guarded and unable to participate in a full and extensive interview, but is more amenable to meeting with this provider more open, has had no behavioral problems overnight and has not been attending groups. Review Of Systems Cardiovascular: Denies chest pain or palpitations GI: Denies nausea, vomiting, or bowel changes Respiratory: Denies shortness of breath or cough Neuro: Denies dizziness, tremors Derm: Denies any rashes or pruritus MSK: Denies any muscle tightness or stiffness Psychotherapy None on this visit. Vital Signs Reviewed. Mental Status Examination General: Fair hygiene Speech: Sparse Thought processes: Circumstantial MSK: Severe restlessness, pacing up and down the hallway Thought content: Paranoid Abstract reasoning, and computation: Impaired Description of associations: Impaired Description of abnormal or psychotic thoughts: Denies any suicidal or homicidal ideation Judgment: Impaired Insight: Impaired Orientation: Alert and orientated 3 Cognition: Grossly normal Recent and remote memory: Intact Attention span and concentration: Intact Fund of knowledge: Adequate Mood: "Great" Affect: Flat with little reactivity Diagnoses Schizophrenia. Alcohol use disorder, unspecified. Psychogenic polydipsia. Assessment and Plan Schizophrenia: Increase Clozaril to 300 mg nightly and 125 mg daily. Continue Abilify 20 mg daily. Alcohol use disorder: Unlikely to have withdrawal, last drink several weeks ago. Polydipsia: Sodium appears normal. Patient's water use is constrained. Does not appear to be having adverse effects from it. Clozaril appears to be more effective. Disposition The patient will need a further inpatient admission due to severely impairing psychosis making him unable to care for himself. He is still having a strenuous course, being sent to [place] of which currently there is an appeal based on a denial. Time Spent 15 minutes. Vital Signs Vital Signs Date Time Temp Pulse Resp B/P (MAP) Pulse Ox O2 Delivery O2 Flow Rate FiO2 02/27/19 06:01 97.9 80 16 137/82 (100) 02/24/19 06:51 Room Air Current Medications Current Medications Medications (Trade) Dose Ordered Sig/Julian Route PRN Reason Start Time Stop Time Status Last Admin Dose Admin Acetaminophen (Tylenol Tab) 650 mg Q6HP PRN PO HEADACHE or DISCOMFORT 01/22/19 14:15 Al Hydrox/Mg Hydrox/Simethicone (Mylanta) 30 ml Q4HP PRN PO HEARTBURN/INDIGESTION 01/22/19 14:15 Aripiprazole (AbiLIFY) 2 mg QHS PO 01/26/19 21:00 01/30/19 11:04 DC 01/29/19 20:43 Aripiprazole (AbiLIFY) 5 mg QHS PO 01/30/19 21:00 02/07/19 08:56 DC 02/06/19 21:39 Aripiprazole (AbiLIFY) 10 mg QHS PO 02/07/19 21:00 02/11/19 11:55 DC 02/10/19 20:47 Aripiprazole (AbiLIFY) 15 mg QHS PO 02/11/19 21:00 02/24/19 07:45 DC 02/23/19 20:24 Aripiprazole (AbiLIFY) 20 mg QHS PO 02/24/19 21:00 02/26/19 21:37 Clonidine HCl (Catapres) 0.05 mg TIDP PRN PO anxiety 02/26/19 10:15 Clozapine (Clozaril) 12.5 mg QHS PO 01/22/19 21:00 01/23/19 11:04 DC Clozapine (Clozaril) 25 mg DAILY PO 02/27/19 09:00 Clozapine (Clozaril) 25 mg QAM PO 01/31/19 09:00 02/03/19 12:55 DC 02/03/19 09:30 Clozapine (Clozaril) 25 mg QHS PO 02/18/19 21:00 02/21/19 08:38 DC 02/20/19 21:56 Clozapine (Clozaril) 25 mg QHS PO 01/23/19 21:00 01/24/19 14:05 DC 01/23/19 20:53 Clozapine (Clozaril) 50 mg QAM PO 02/04/19 09:00 02/10/19 12:11 DC 02/10/19 08:38 Clozapine (Clozaril) 50 mg QHS PO 01/24/19 21:00 01/26/19 13:26 DC 01/25/19 22:34 Clozapine (Clozaril) 75 mg BID PO 02/10/19 21:00 02/11/19 11:55 DC 02/11/19 10:10 Clozapine (Clozaril) 75 mg QAM PO 02/11/19 09:00 Cancel Clozapine (Clozaril) 75 mg QHS PO 02/21/19 21:00 02/24/19 07:44 DC 02/23/19 20:22 Clozapine (Clozaril) 75 mg QHS PO 01/26/19 21:00 01/27/19 13:04 DC 01/26/19 21:11 Clozapine (Clozaril) 75 mg QHS PO 02/07/19 21:00 02/10/19 20:03 DC 02/09/19 21:04 Clozapine (Clozaril) 87.5 mg BID PO 02/11/19 21:00 02/14/19 18:52 DC 02/14/19 08:51 Clozapine (Clozaril) 100 mg BID PO 02/14/19 21:00 02/18/19 16:29 DC 02/18/19 09:01 Clozapine (Clozaril) 100 mg DAILY PO 02/27/19 09:00 Clozapine (Clozaril) 100 mg DAILY PO 02/19/19 09:00 02/26/19 09:49 DC 02/26/19 09:31 Clozapine (Clozaril) 100 mg QHS PO 01/27/19 21:00 01/30/19 11:04 DC 01/29/19 20:43 Clozapine (Clozaril) 100 mg QHS PO 02/07/19 21:00 02/10/19 20:03 DC 02/09/19 21:04 Clozapine (Clozaril) 100 mg QHS PO 02/10/19 21:00 02/18/19 15:15 DC 02/17/19 20:44 Clozapine (Clozaril) 125 mg QHS PO 02/18/19 21:00 UNV Clozapine (Clozaril) 150 mg QHS PO 01/30/19 21:00 02/07/19 08:56 DC 02/06/19 21:39 Clozapine (Clozaril) 200 mg QHS PO 02/18/19 21:00 02/24/19 07:44 DC 02/23/19 20:23 Clozapine (Clozaril) 275 mg QHS PO 02/21/19 21:00 UNV Clozapine (Clozaril) 300 mg QHS PO 02/24/19 21:00 02/26/19 21:36 Lorazepam (Ativan) 1 mg Q4HP PRN PO ANXIETY/AGITATION 02/03/19 11:00 02/17/19 10:30 DC 02/04/19 08:56 Lorazepam (Ativan) 1 mg Q6HP PRN PO ANXIETY 01/25/19 16:45 02/01/19 16:44 DC 01/26/19 22:02 Magnesium Hydroxide (Milk Of Magnesia) 30 ml DAILYPRN PRN PO CONSTIPATION 01/22/19 14:15 Miscellaneous (Unresolved Clarification Entry) SEE LABEL COMMENTS DAILY XX 02/25/19 09:00 02/25/19 13:32 DC Miscellaneous (Unresolved Clarification Entry) SEE LABEL COMMENTS DAILY XX 02/17/19 09:00 02/21/19 10:32 DC Miscellaneous (Unresolved Clarification Entry) SEE LABEL COMMENTS DAILY XX 02/10/19 09:00 02/10/19 17:42 DC Trazodone HCl (Desyrel) 50 mg QHSP PRN PO INSOMNIA 01/22/19 14:15 01/26/19 22:02 Allergies Coded Allergies: No Known Allergies (Unverified , 01/15/19) TINA MINAYA DO Feb 27, 2019 08:14
[2019-02-27] MEDS: cloZAPine 25 MG TAB (S0136) PO SCH (08:56)
[2019-02-27] MEDS: cloZAPine 100 MG TAB (S0136) PO SCH ×2 (08:56→21:02)
[2019-02-27 16:26] VITALS: BP 138/96
[2019-02-27 16:41] VITALS: BP 136/96
[2019-02-27] MEDS: ARIPiprazole 10 MG TAB PO SCH (21:02)
[2019-02-28 06:12] VITALS: BP 116/78
[2019-02-28 07:05] LABS: CHOLESTEROL RISK RATIO 4.05 (<5)
[2019-02-28 07:33] LABS: HEMOGLOBIN A1c 5.2 %
[2019-02-28] MEDS: cloZAPine 100 MG TAB (S0136) PO SCH ×2 (08:47→20:38)
[2019-02-28] MEDS: cloZAPine 25 MG TAB (S0136) PO SCH (08:47)
--- NOTE | 2019-02-28 13:03 | MHIPNPDOC ---
[facility] Progress Note Progress Note Inpatient Progress Note Mike Singletary MRN: N/A Date of : N/A Date of Service: 02/28/2019 History of Present Illness 33-year-old man with a history of schizophrenia with severe noncompliance resulting in a new psychotic episode. He has significant polydipsia and has required medical treatment on this presentation due to seizures. Interval History Psychiatric symptoms today: Affective: Denies any depression at this time. Psychotic: Still paranoid with some improvement, less behavioral problems, more focused, but still has difficulty interacting with others, some disorganization still present. Anxiety: Denies. Misc: No excessive drinking behavior or compulsive behavior. Group Attendance: Nil. Medication Side effects: See ROS below Behavioral problems/significant events overnight: None noted over the previous evening. Staff Report: Some mild improvement, but still isolative to room. Review Of Systems Cardiovascular: Denies chest pain or palpitations GI: Denies nausea, vomiting, or bowel changes Respiratory: Denies shortness of breath or cough Neuro: Denies dizziness, tremors Derm: Denies any rashes or pruritus MSK: Denies any muscle tightness or stiffness Psychotherapy None on this visit. Vital Signs Reviewed. Mental Status Examination General: Fair hygiene Speech: Sparse Thought processes: Circumstantial MSK: Severe restlessness, pacing up and down the hallway Thought content: Paranoid Abstract reasoning, and computation: Impaired Description of associations: Impaired Description of abnormal or psychotic thoughts: Denies any suicidal or homicidal ideation Judgment: Impaired Insight: Impaired Orientation: Alert and orientated 3 Cognition: Grossly normal Recent and remote memory: Intact Attention span and concentration: Intact Fund of knowledge: Adequate Mood: "Great" Affect: Flat with little reactivity Diagnoses Schizophrenia. Alcohol use disorder, unspecified. Psychogenic polydipsia. Assessment and Plan Schizophrenia: Increase Clozaril to 300 mg nightly and 125 mg daily. Continue Abilify 20 mg daily. Alcohol use disorder: Unlikely to have withdrawal, last drink several weeks ago. Polydipsia: Sodium appears normal. Patient's water use is constrained. Does not appear to be having adverse effects from it. Clozaril appears to be more effective. Disposition The patient will need a further inpatient admission due to severely impairing psychosis making him unable to care for himself. He is still having a strenuous course, being sent to [place] of which currently there is an appeal based on a denial. Time Spent 15 minutes. Sunday Vital Signs Vital Signs Date Time Temp Pulse Resp B/P (MAP) Pulse Ox O2 Delivery O2 Flow Rate FiO2 02/28/19 06:12 98.6 88 16 116/78 (91) 02/24/19 06:51 Room Air Laboratory Data 24H Labs Laboratory Tests 2 02/28/19 06:18: Estimated Mean Plasma Glucose 103, Hemoglobin A1c 5.2, Triglycerides Level 81, Total Cholesterol 162, LDL Cholesterol 106H, Non-HDL Cholesterol (LDL + VLDL) 122, Total HDL Cholesterol 40, Cholesterol/HDL Ratio 4.050 Current Medications Current Medications Medications (Trade) Dose Ordered Sig/Julian Route PRN Reason Start Time Stop Time Status Last Admin Dose Admin Acetaminophen (Tylenol Tab) 650 mg Q6HP PRN PO HEADACHE or DISCOMFORT 01/22/19 14:15 Al Hydrox/Mg Hydrox/Simethicone (Mylanta) 30 ml Q4HP PRN PO HEARTBURN/INDIGESTION 01/22/19 14:15 Aripiprazole (AbiLIFY) 2 mg QHS PO 01/26/19 21:00 01/30/19 11:04 DC 01/29/19 20:43 Aripiprazole (AbiLIFY) 5 mg QHS PO 01/30/19 21:00 02/07/19 08:56 DC 02/06/19 21:39 Aripiprazole (AbiLIFY) 10 mg QHS PO 02/07/19 21:00 02/11/19 11:55 DC 02/10/19 20:47 Aripiprazole (AbiLIFY) 15 mg QHS PO 02/11/19 21:00 02/24/19 07:45 DC 02/23/19 20:24 Aripiprazole (AbiLIFY) 20 mg QHS PO 02/24/19 21:00 02/27/19 21:02 Clonidine HCl (Catapres) 0.05 mg TIDP PRN PO anxiety 02/26/19 10:15 02/27/19 16:26 Clozapine (Clozaril) 12.5 mg QHS PO 01/22/19 21:00 01/23/19 11:04 DC Clozapine (Clozaril) 25 mg DAILY PO 02/27/19 09:00 02/28/19 08:47 Clozapine (Clozaril) 25 mg QAM PO 01/31/19 09:00 02/03/19 12:55 DC 02/03/19 09:30 Clozapine (Clozaril) 25 mg QHS PO 02/18/19 21:00 02/21/19 08:38 DC 02/20/19 21:56 Clozapine (Clozaril) 25 mg QHS PO 01/23/19 21:00 01/24/19 14:05 DC 01/23/19 20:53 Clozapine (Clozaril) 50 mg QAM PO 02/04/19 09:00 02/10/19 12:11 DC 02/10/19 08:38 Clozapine (Clozaril) 50 mg QHS PO 01/24/19 21:00 01/26/19 13:26 DC 01/25/19 22:34 Clozapine (Clozaril) 75 mg BID PO 02/10/19 21:00 02/11/19 11:55 DC 02/11/19 10:10 Clozapine (Clozaril) 75 mg QAM PO 02/11/19 09:00 Cancel Clozapine (Clozaril) 75 mg QHS PO 02/21/19 21:00 02/24/19 07:44 DC 02/23/19 20:22 Clozapine (Clozaril) 75 mg QHS PO 01/26/19 21:00 01/27/19 13:04 DC 01/26/19 21:11 Clozapine (Clozaril) 75 mg QHS PO 02/07/19 21:00 02/10/19 20:03 DC 02/09/19 21:04 Clozapine (Clozaril) 87.5 mg BID PO 02/11/19 21:00 02/14/19 18:52 DC 02/14/19 08:51 Clozapine (Clozaril) 100 mg BID PO 02/14/19 21:00 02/18/19 16:29 DC 02/18/19 09:01 Clozapine (Clozaril) 100 mg DAILY PO 02/27/19 09:00 02/28/19 08:47 Clozapine (Clozaril) 100 mg DAILY PO 02/19/19 09:00 02/26/19 09:49 DC 02/26/19 09:31 Clozapine (Clozaril) 100 mg QHS PO 01/27/19 21:00 01/30/19 11:04 DC 01/29/19 20:43 Clozapine (Clozaril) 100 mg QHS PO 02/07/19 21:00 02/10/19 20:03 DC 02/09/19 21:04 Clozapine (Clozaril) 100 mg QHS PO 02/10/19 21:00 02/18/19 15:15 DC 02/17/19 20:44 Clozapine (Clozaril) 125 mg QHS PO 02/18/19 21:00 UNV Clozapine (Clozaril) 150 mg QHS PO 01/30/19 21:00 02/07/19 08:56 DC 02/06/19 21:39 Clozapine (Clozaril) 200 mg QHS PO 02/18/19 21:00 02/24/19 07:44 DC 02/23/19 20:23 Clozapine (Clozaril) 275 mg QHS PO 02/21/19 21:00 UNV Clozapine (Clozaril) 300 mg QHS PO 02/24/19 21:00 02/27/19 21:02 Lorazepam (Ativan) 1 mg Q4HP PRN PO ANXIETY/AGITATION 02/03/19 11:00 02/17/19 10:30 DC 02/04/19 08:56 Lorazepam (Ativan) 1 mg Q6HP PRN PO ANXIETY 01/25/19 16:45 02/01/19 16:44 DC 01/26/19 22:02 Magnesium Hydroxide (Milk Of Magnesia) 30 ml DAILYPRN PRN PO CONSTIPATION 01/22/19 14:15 Miscellaneous (Unresolved Clarification Entry) SEE LABEL COMMENTS DAILY XX 02/25/19 09:00 02/25/19 13:32 DC Miscellaneous (Unresolved Clarification Entry) SEE LABEL COMMENTS DAILY XX 02/17/19 09:00 02/21/19 10:32 DC Miscellaneous (Unresolved Clarification Entry) SEE LABEL COMMENTS DAILY XX 02/10/19 09:00 02/10/19 17:42 DC Trazodone HCl (Desyrel) 50 mg QHSP PRN PO INSOMNIA 01/22/19 14:15 01/26/19 22:02 Allergies Coded Allergies: No Known Allergies (Unverified , 01/15/19) TINA MINAYA DO Feb 28, 2019 13:03
[2019-02-28 16:35] VITALS: BP 127/73
[2019-02-28] MEDS: ARIPiprazole 10 MG TAB PO SCH (20:38)
[2019-03-01 06:00] VITALS: BP 143/69
[2019-03-01] MEDS: cloZAPine 25 MG TAB (S0136) PO SCH (08:47)
[2019-03-01] MEDS: cloZAPine 100 MG TAB (S0136) PO SCH ×2 (08:47→21:07)
[2019-03-01 16:02] VITALS: BP 146/90
[2019-03-01] MEDS: ARIPiprazole 10 MG TAB PO SCH (21:07)
[2019-03-02 06:10] VITALS: BP 138/92
[2019-03-02] MEDS: cloZAPine 25 MG TAB (S0136) PO SCH (08:56)
[2019-03-02] MEDS: cloZAPine 100 MG TAB (S0136) PO SCH ×2 (08:56→21:33)
[2019-03-02 19:00] VITALS: BP 146/66
[2019-03-02] MEDS: ARIPiprazole 10 MG TAB PO SCH (21:32)
[2019-03-03 06:17] VITALS: BP 138/86
[2019-03-03] MEDS: cloZAPine 25 MG TAB (S0136) PO SCH (09:19)
[2019-03-03] MEDS: cloZAPine 100 MG TAB (S0136) PO SCH ×2 (09:20→20:58)
--- NOTE | 2019-03-03 10:22 | MHIPNPDOC ---
[facility] Progress Note Progress Note Inpatient Progress Note Mike Singletary MRN: N/A Date of : N/A Date of Service: 03/03/2019 History of Present Illness 33-year-old man with a history of schizophrenia with severe noncompliance resulting in a new psychotic episode. He has significant polydipsia and has required medical treatment on this presentation due to seizures. Interval History Psychiatric symptoms today: Affective: Denies any depression at this time. Psychotic: Still paranoid and disorganized, unable to be focused and engage with others, need significant prompting to leave his room. Anxiety: Denies. Misc: No excessive drinking behavior or compulsive behavior. Group Attendance: No groups attended. Medication Side effects: See ROS below Behavioral problems/significant events overnight: None noted over the previous evening. Staff Report: Some mild improvement, but still isolative to room. Review Of Systems Cardiovascular: Denies chest pain or palpitations GI: Denies nausea, vomiting, or bowel changes Respiratory: Denies shortness of breath or cough Neuro: Denies dizziness, tremors Derm: Denies any rashes or pruritus MSK: Denies any muscle tightness or stiffness Psychotherapy None on this visit. Vital Signs Reviewed. Mental Status Examination General: Fair hygiene Speech: Sparse Thought processes: Circumstantial MSK: Severe restlessness, pacing up and down the hallway Thought content: Paranoid Abstract reasoning, and computation: Impaired Description of associations: Impaired Description of abnormal or psychotic thoughts: Denies any suicidal or homicidal ideation Judgment: Impaired Insight: Impaired Orientation: Alert and orientated 3 Cognition: Grossly normal Recent and remote memory: Intact Attention span and concentration: Intact Fund of knowledge: Adequate Mood: "Great" Affect: Flat with little reactivity Diagnoses Schizophrenia. Alcohol use disorder, unspecified. Psychogenic polydipsia. Assessment and Plan Schizophrenia: Continue Clozaril 300 mg nightly and 125 mg daily, continue Abilify 20 mg daily. Alcohol use disorder: Unlikely to have withdrawal, last drink several weeks ago. Polydipsia: Sodium appears normal. Patient's water use is constrained. Does not appear to be having adverse effects from it. Clozaril appears to be more effective. Disposition Currently pending, transferred to [facility] for long-term care due to his significantly impairing psychosis resistant to Clozaril. Time Spent 15 minutes. Sunday Vital Signs Vital Signs Date Time Temp Pulse Resp B/P (MAP) Pulse Ox O2 Delivery O2 Flow Rate FiO2 03/03/19 09:13 Room Air 03/03/19 06:17 97.7 88 14 138/86 (103) Current Medications Current Medications Medications (Trade) Dose Ordered Sig/Julian Route PRN Reason Start Time Stop Time Status Last Admin Dose Admin Acetaminophen (Tylenol Tab) 650 mg Q6HP PRN PO HEADACHE or DISCOMFORT 01/22/19 14:15 Al Hydrox/Mg Hydrox/Simethicone (Mylanta) 30 ml Q4HP PRN PO HEARTBURN/INDIGESTION 01/22/19 14:15 Aripiprazole (AbiLIFY) 2 mg QHS PO 01/26/19 21:00 01/30/19 11:04 DC 01/29/19 20:43 Aripiprazole (AbiLIFY) 5 mg QHS PO 01/30/19 21:00 02/07/19 08:56 DC 02/06/19 21:39 Aripiprazole (AbiLIFY) 10 mg QHS PO 02/07/19 21:00 02/11/19 11:55 DC 02/10/19 20:47 Aripiprazole (AbiLIFY) 15 mg QHS PO 02/11/19 21:00 02/24/19 07:45 DC 02/23/19 20:24 Aripiprazole (AbiLIFY) 20 mg QHS PO 02/24/19 21:00 03/02/19 21:32 Clonidine HCl (Catapres) 0.05 mg TIDP PRN PO anxiety 02/26/19 10:15 02/27/19 16:26 Clozapine (Clozaril) 12.5 mg QHS PO 01/22/19 21:00 01/23/19 11:04 DC Clozapine (Clozaril) 25 mg DAILY PO 02/27/19 09:00 03/03/19 09:19 Clozapine (Clozaril) 25 mg QAM PO 01/31/19 09:00 02/03/19 12:55 DC 02/03/19 09:30 Clozapine (Clozaril) 25 mg QHS PO 02/18/19 21:00 02/21/19 08:38 DC 02/20/19 21:56 Clozapine (Clozaril) 25 mg QHS PO 01/23/19 21:00 01/24/19 14:05 DC 01/23/19 20:53 Clozapine (Clozaril) 50 mg QAM PO 02/04/19 09:00 02/10/19 12:11 DC 02/10/19 08:38 Clozapine (Clozaril) 50 mg QHS PO 01/24/19 21:00 01/26/19 13:26 DC 01/25/19 22:34 Clozapine (Clozaril) 75 mg BID PO 02/10/19 21:00 02/11/19 11:55 DC 02/11/19 10:10 Clozapine (Clozaril) 75 mg QAM PO 02/11/19 09:00 Cancel Clozapine (Clozaril) 75 mg QHS PO 02/21/19 21:00 02/24/19 07:44 DC 02/23/19 20:22 Clozapine (Clozaril) 75 mg QHS PO 01/26/19 21:00 01/27/19 13:04 DC 01/26/19 21:11 Clozapine (Clozaril) 75 mg QHS PO 02/07/19 21:00 02/10/19 20:03 DC 02/09/19 21:04 Clozapine (Clozaril) 87.5 mg BID PO 02/11/19 21:00 02/14/19 18:52 DC 02/14/19 08:51 Clozapine (Clozaril) 100 mg BID PO 02/14/19 21:00 02/18/19 16:29 DC 02/18/19 09:01 Clozapine (Clozaril) 100 mg DAILY PO 02/27/19 09:00 03/03/19 09:20 Clozapine (Clozaril) 100 mg DAILY PO 02/19/19 09:00 02/26/19 09:49 DC 02/26/19 09:31 Clozapine (Clozaril) 100 mg QHS PO 01/27/19 21:00 01/30/19 11:04 DC 01/29/19 20:43 Clozapine (Clozaril) 100 mg QHS PO 02/07/19 21:00 02/10/19 20:03 DC 02/09/19 21:04 Clozapine (Clozaril) 100 mg QHS PO 02/10/19 21:00 02/18/19 15:15 DC 02/17/19 20:44 Clozapine (Clozaril) 125 mg QHS PO 02/18/19 21:00 UNV Clozapine (Clozaril) 150 mg QHS PO 01/30/19 21:00 02/07/19 08:56 DC 02/06/19 21:39 Clozapine (Clozaril) 200 mg QHS PO 02/18/19 21:00 02/24/19 07:44 DC 02/23/19 20:23 Clozapine (Clozaril) 275 mg QHS PO 02/21/19 21:00 UNV Clozapine (Clozaril) 300 mg QHS PO 02/24/19 21:00 03/02/19 21:33 Lorazepam (Ativan) 1 mg Q4HP PRN PO ANXIETY/AGITATION 02/03/19 11:00 02/17/19 10:30 DC 02/04/19 08:56 Lorazepam (Ativan) 1 mg Q6HP PRN PO ANXIETY 01/25/19 16:45 02/01/19 16:44 DC 01/26/19 22:02 Magnesium Hydroxide (Milk Of Magnesia) 30 ml DAILYPRN PRN PO CONSTIPATION 01/22/19 14:15 Miscellaneous (Unresolved Clarification Entry) SEE LABEL COMMENTS DAILY XX 02/25/19 09:00 02/25/19 13:32 DC Miscellaneous (Unresolved Clarification Entry) SEE LABEL COMMENTS DAILY XX 02/17/19 09:00 02/21/19 10:32 DC Miscellaneous (Unresolved Clarification Entry) SEE LABEL COMMENTS DAILY XX 02/10/19 09:00 02/10/19 17:42 DC Trazodone HCl (Desyrel) 50 mg QHSP PRN PO INSOMNIA 01/22/19 14:15 01/26/19 22:02 Allergies Coded Allergies: No Known Allergies (Unverified , 01/15/19) TINA MINAYA DO Mar 03, 2019 10:21
[2019-03-03 16:52] VITALS: BP 140/70
[2019-03-03] MEDS: ARIPiprazole 10 MG TAB PO SCH (20:58)
[2019-03-04 05:48] VITALS: BP 144/87
[2019-03-04] MEDS: cloZAPine 100 MG TAB (S0136) PO SCH ×2 (08:56→21:00)
[2019-03-04] MEDS: cloZAPine 25 MG TAB (S0136) PO SCH (08:56)
--- NOTE | 2019-03-04 09:26 | MHIPNPDOC ---
[facility] Progress Note Progress Note Inpatient Progress Note Mike Singletary MRN: N/A Date of : N/A Date of Service: 03/04/2019 History of Present Illness 33-year-old man with a history of schizophrenia with severe noncompliance resulting in a new psychotic episode. He has significant polydipsia and has required medical treatment on this presentation due to seizures. Interval History Psychiatric symptoms today: Affective: Denies any depression at this time. Psychotic: Still paranoid and disorganized, unable to be focused and engage with others, need significant prompting to leave his room. Anxiety: Denies. Misc: No excessive drinking behavior or compulsive behavior. Group Attendance: No groups attended. Medication Side effects: See ROS below Behavioral problems/significant events overnight: None noted over the previous evening. Staff Report: Some mild improvement, but still isolative to room. Review Of Systems Cardiovascular: Denies chest pain or palpitations GI: Denies nausea, vomiting, or bowel changes Respiratory: Denies shortness of breath or cough Neuro: Denies dizziness, tremors Derm: Denies any rashes or pruritus MSK: Denies any muscle tightness or stiffness Psychotherapy None on this visit. Vital Signs Reviewed. Mental Status Examination General: Fair hygiene Speech: Sparse Thought processes: Circumstantial MSK: Severe restlessness, pacing up and down the hallway Thought content: Paranoid Abstract reasoning, and computation: Impaired Description of associations: Impaired Description of abnormal or psychotic thoughts: Denies any suicidal or homicidal ideation Judgment: Impaired Insight: Impaired Orientation: Alert and orientated 3 Cognition: Grossly normal Recent and remote memory: Intact Attention span and concentration: Intact Fund of knowledge: Adequate Mood: "Great" Affect: Flat with little reactivity Diagnoses Schizophrenia. Alcohol use disorder, unspecified. Psychogenic polydipsia. Assessment and Plan Schizophrenia: Continue Clozaril 300 mg nightly and increase morning dose of Clozaril to 150 mg daily, continue Abilify 20 mg daily, order ANC. Alcohol use disorder: Unlikely to have withdrawal, last drink several weeks ago. Polydipsia: Sodium appears normal. Patient's water use is constrained. Does not appear to be having adverse effects from it. Clozaril appears to be more effective. Disposition Patient has been accepted for transfer to [facility] Time Spent 15 minutes. Sunday Vital Signs Vital Signs Date Time Temp Pulse Resp B/P (MAP) Pulse Ox O2 Delivery O2 Flow Rate FiO2 03/04/19 05:48 97.7 88 16 144/87 (106) 03/03/19 09:13 Room Air Current Medications Current Medications Medications (Trade) Dose Ordered Sig/Julian Route PRN Reason Start Time Stop Time Status Last Admin Dose Admin Acetaminophen (Tylenol Tab) 650 mg Q6HP PRN PO HEADACHE or DISCOMFORT 01/22/19 14:15 Al Hydrox/Mg Hydrox/Simethicone (Mylanta) 30 ml Q4HP PRN PO HEARTBURN/INDIGESTION 01/22/19 14:15 Aripiprazole (AbiLIFY) 2 mg QHS PO 01/26/19 21:00 01/30/19 11:04 DC 01/29/19 20:43 Aripiprazole (AbiLIFY) 5 mg QHS PO 01/30/19 21:00 02/07/19 08:56 DC 02/06/19 21:39 Aripiprazole (AbiLIFY) 10 mg QHS PO 02/07/19 21:00 02/11/19 11:55 DC 02/10/19 20:47 Aripiprazole (AbiLIFY) 15 mg QHS PO 02/11/19 21:00 02/24/19 07:45 DC 02/23/19 20:24 Aripiprazole (AbiLIFY) 20 mg QHS PO 02/24/19 21:00 03/03/19 20:58 Clonidine HCl (Catapres) 0.05 mg TIDP PRN PO anxiety 02/26/19 10:15 02/27/19 16:26 Clozapine (Clozaril) 12.5 mg QHS PO 01/22/19 21:00 01/23/19 11:04 DC Clozapine (Clozaril) 25 mg DAILY PO 02/27/19 09:00 03/04/19 08:56 Clozapine (Clozaril) 25 mg QAM PO 01/31/19 09:00 02/03/19 12:55 DC 02/03/19 09:30 Clozapine (Clozaril) 25 mg QHS PO 02/18/19 21:00 02/21/19 08:38 DC 02/20/19 21:56 Clozapine (Clozaril) 25 mg QHS PO 01/23/19 21:00 01/24/19 14:05 DC 01/23/19 20:53 Clozapine (Clozaril) 50 mg QAM PO 02/04/19 09:00 02/10/19 12:11 DC 02/10/19 08:38 Clozapine (Clozaril) 50 mg QHS PO 01/24/19 21:00 01/26/19 13:26 DC 01/25/19 22:34 Clozapine (Clozaril) 75 mg BID PO 02/10/19 21:00 02/11/19 11:55 DC 02/11/19 10:10 Clozapine (Clozaril) 75 mg QAM PO 02/11/19 09:00 Cancel Clozapine (Clozaril) 75 mg QHS PO 02/21/19 21:00 02/24/19 07:44 DC 02/23/19 20:22 Clozapine (Clozaril) 75 mg QHS PO 01/26/19 21:00 01/27/19 13:04 DC 01/26/19 21:11 Clozapine (Clozaril) 75 mg QHS PO 02/07/19 21:00 02/10/19 20:03 DC 02/09/19 21:04 Clozapine (Clozaril) 87.5 mg BID PO 02/11/19 21:00 02/14/19 18:52 DC 02/14/19 08:51 Clozapine (Clozaril) 100 mg BID PO 02/14/19 21:00 02/18/19 16:29 DC 02/18/19 09:01 Clozapine (Clozaril) 100 mg DAILY PO 02/27/19 09:00 03/04/19 08:56 Clozapine (Clozaril) 100 mg DAILY PO 02/19/19 09:00 02/26/19 09:49 DC 02/26/19 09:31 Clozapine (Clozaril) 100 mg QHS PO 01/27/19 21:00 01/30/19 11:04 DC 01/29/19 20:43 Clozapine (Clozaril) 100 mg QHS PO 02/07/19 21:00 02/10/19 20:03 DC 02/09/19 21:04 Clozapine (Clozaril) 100 mg QHS PO 02/10/19 21:00 02/18/19 15:15 DC 02/17/19 20:44 Clozapine (Clozaril) 125 mg QHS PO 02/18/19 21:00 UNV Clozapine (Clozaril) 150 mg QHS PO 01/30/19 21:00 02/07/19 08:56 DC 02/06/19 21:39 Clozapine (Clozaril) 200 mg QHS PO 02/18/19 21:00 02/24/19 07:44 DC 02/23/19 20:23 Clozapine (Clozaril) 275 mg QHS PO 02/21/19 21:00 UNV Clozapine (Clozaril) 300 mg QHS PO 02/24/19 21:00 03/03/19 20:58 Lorazepam (Ativan) 1 mg Q4HP PRN PO ANXIETY/AGITATION 02/03/19 11:00 02/17/19 10:30 DC 02/04/19 08:56 Lorazepam (Ativan) 1 mg Q6HP PRN PO ANXIETY 01/25/19 16:45 02/01/19 16:44 DC 01/26/19 22:02 Magnesium Hydroxide (Milk Of Magnesia) 30 ml DAILYPRN PRN PO CONSTIPATION 01/22/19 14:15 Miscellaneous (Unresolved Clarification Entry) SEE LABEL COMMENTS DAILY XX 02/25/19 09:00 02/25/19 13:32 DC Miscellaneous (Unresolved Clarification Entry) SEE LABEL COMMENTS DAILY XX 02/17/19 09:00 02/21/19 10:32 DC Miscellaneous (Unresolved Clarification Entry) SEE LABEL COMMENTS DAILY XX 02/10/19 09:00 02/10/19 17:42 DC Trazodone HCl (Desyrel) 50 mg QHSP PRN PO INSOMNIA 01/22/19 14:15 01/26/19 22:02 Allergies Coded Allergies: No Known Allergies (Unverified , 01/15/19) TINA MINAYA DO Mar 04, 2019 09:26
[2019-03-04 15:59] LABS: BASO % 0.8 % (0.0-1.0); EOS # 0.3 10^3/uL (0.0-0.5); EOS % 6.4 % (0.0-3.0); HEMATOCRIT 45.2 % (42.0-52.0); HEMOGLOBIN 14.6 g/dl (13.5-17.5); LYMPH # 1.3 10^3/uL (1.5-5.0); LYMPH % 25.8 % (24.0-44.0); MEAN CORPUSCULAR HEMOGLOBIN 28.7 pg (27.0-33.0); MEAN CORPUSCULAR HGB CONC 32.3 g/dl (32.0-36.5); MEAN CORPUSCULAR VOLUME 88.8 fl (80.0-96.0); MONO # 0.4 10^3/uL (0.0-0.8); MONO % 7.2 % (0.0-5.0); NEUTROPHILS # 3.1 10^3/uL (1.5-8.5); NEUTROPHILS % 59.6 % (36.0-66.0); PLATELET COUNT, AUTOMATED 244 10^3/uL (150-450); RED BLOOD COUNT 5.09 10^6/uL (4.30-6.10); WHITE BLOOD COUNT 5.2 10^3/uL (4.0-10.0)
[2019-03-04 16:27] VITALS: BP 135/82
[2019-03-04] MEDS: ARIPiprazole 10 MG TAB PO SCH (21:00)
[2019-03-05 05:59] VITALS: BP 129/76
--- NOTE | 2019-03-05 07:25 | MHIPNPDOC ---
[facility] Progress Note Progress Note Inpatient Progress Note Mike Singletary MRN: N/[id number] Date of : N/A Date of Service: 03/05/2019 History of Present Illness 33-year-old man with a history of schizophrenia with severe noncompliance resulting in a new psychotic episode. He has significant polydipsia and has required medical treatment on this presentation due to seizures. Interval History Psychiatric symptoms today: Affective: Denies any depression at this time. Psychotic: The patient is still quite disorganized and paranoid, stays in his room, does not leave even with prompting at this time. Anxiety: Denies. Misc: No excessive drinking behavior or compulsive behavior. Group Attendance: No groups attended. Medication Side effects: See ROS below . Behavioral problems/significant events overnight: None noted over the previous evening. Staff Report: The patient is still unable to leave room for any sustained period of time, still isolative, secretive, but attends to basic ADLs at times. Review Of Systems Cardiovascular: Denies chest pain or palpitations GI: Denies Nausea, vomiting, or bowel changes Respiratory: Denies shortness of breath or cough Neuro: Denies dizziness, tremors Derm: Denies any rashes or pruritus : Denies any dysuria or urinary problems MSK: Denies any muscle tightness or stiffness HEENT: Denies any vision changes or headaches Psychotherapy None on this visit. Vital Signs Reviewed. Mental Status Examination General: Well dressed with good hygiene General: Fair hygiene Speech: Sparse Thought processes: Circumstantial MSK: Severe restlessness, pacing up and down the hallway Thought content: Paranoid Abstract reasoning, and computation: Impaired Description of associations: Impaired Description of abnormal or psychotic thoughts: Denies any suicidal or homicidal ideation Judgment: Impaired Insight: Impaired Orientation: Alert and orientated 3 Cognition: Grossly normal Recent and remote memory: Intact Attention span and concentration: Intact Fund of knowledge: Adequate Mood: "Great" Affect: Flat with little reactivity Diagnoses Schizophrenia. Alcohol use disorder, unspecified. Psychogenic polydipsia. Assessment and Plan Schizophrenia: Continue clozapine as below and Abilify. Alcohol use disorder: No action needed, no signs of withdrawal. Psychogenic polydipsia: No action needed, drinking behavior ceased. Disposition Transfer to [facility] tomorrow. Time Spent 15 minutes [id number]. Sunday Vital Signs Vital Signs Date Time Temp Pulse Resp B/P (MAP) Pulse Ox O2 Delivery O2 Flow Rate FiO2 03/05/19 05:59 98.9 75 16 129/76 (93) 03/04/19 10:29 Room Air Laboratory Data 24H Labs Laboratory Tests 2 03/04/19 15:15: Immature Granulocyte % (Auto) 0.2, Neutrophils (%) (Auto) 59.6, Lymphocytes (%) (Auto) 25.8, Monocytes (%) (Auto) 7.2H, Eosinophils (%) (Auto) 6.4H, Basophils (%) (Auto) 0.8, Neutrophils # (Auto) 3.1, Lymphocytes # (Auto) 1.3L, Monocytes # (Auto) 0.4, Eosinophils # (Auto) 0.3, Basophils # (Auto) 0.0, Nucleated Red Blood Cells % (auto) 0.0 CBC/BMP Laboratory Tests 03/04/19 15:15 Current Medications Current Medications Medications (Trade) Dose Ordered Sig/Julian Route PRN Reason Start Time Stop Time Status Last Admin Dose Admin Acetaminophen (Tylenol Tab) 650 mg Q6HP PRN PO HEADACHE or DISCOMFORT 01/22/19 14:15 Al Hydrox/Mg Hydrox/Simethicone (Mylanta) 30 ml Q4HP PRN PO HEARTBURN/INDIGESTION 01/22/19 14:15 Aripiprazole (AbiLIFY) 2 mg QHS PO 01/26/19 21:00 01/30/19 11:04 DC 01/29/19 20:43 Aripiprazole (AbiLIFY) 5 mg QHS PO 01/30/19 21:00 02/07/19 08:56 DC 02/06/19 21:39 Aripiprazole (AbiLIFY) 10 mg QHS PO 02/07/19 21:00 02/11/19 11:55 DC 02/10/19 20:47 Aripiprazole (AbiLIFY) 15 mg QHS PO 02/11/19 21:00 02/24/19 07:45 DC 02/23/19 20:24 Aripiprazole (AbiLIFY) 20 mg QHS PO 02/24/19 21:00 03/04/19 21:00 Clonidine HCl (Catapres) 0.05 mg TIDP PRN PO anxiety 02/26/19 10:15 02/27/19 16:26 Clozapine (Clozaril) 12.5 mg QHS PO 01/22/19 21:00 01/23/19 11:04 DC Clozapine (Clozaril) 25 mg DAILY PO 02/27/19 09:00 03/04/19 14:32 DC 03/04/19 08:56 Clozapine (Clozaril) 25 mg QAM PO 01/31/19 09:00 02/03/19 12:55 DC 02/03/19 09:30 Clozapine (Clozaril) 25 mg QHS PO 02/18/19 21:00 02/21/19 08:38 DC 02/20/19 21:56 Clozapine (Clozaril) 25 mg QHS PO 01/23/19 21:00 01/24/19 14:05 DC 01/23/19 20:53 Clozapine (Clozaril) 50 mg DAILY PO 03/05/19 09:00 Clozapine (Clozaril) 50 mg QAM PO 02/04/19 09:00 02/10/19 12:11 DC 02/10/19 08:38 Clozapine (Clozaril) 50 mg QHS PO 01/24/19 21:00 01/26/19 13:26 DC 01/25/19 22:34 Clozapine (Clozaril) 75 mg BID PO 02/10/19 21:00 02/11/19 11:55 DC 02/11/19 10:10 Clozapine (Clozaril) 75 mg QAM PO 02/11/19 09:00 Cancel Clozapine (Clozaril) 75 mg QHS PO 02/21/19 21:00 02/24/19 07:44 DC 02/23/19 20:22 Clozapine (Clozaril) 75 mg QHS PO 01/26/19 21:00 01/27/19 13:04 DC 01/26/19 21:11 Clozapine (Clozaril) 75 mg QHS PO 02/07/19 21:00 02/10/19 20:03 DC 02/09/19 21:04 Clozapine (Clozaril) 87.5 mg BID PO 02/11/19 21:00 02/14/19 18:52 DC 02/14/19 08:51 Clozapine (Clozaril) 100 mg BID PO 02/14/19 21:00 02/18/19 16:29 DC 02/18/19 09:01 Clozapine (Clozaril) 100 mg DAILY PO 02/27/19 09:00 03/04/19 08:56 Clozapine (Clozaril) 100 mg DAILY PO 02/19/19 09:00 02/26/19 09:49 DC 02/26/19 09:31 Clozapine (Clozaril) 100 mg QHS PO 01/27/19 21:00 01/30/19 11:04 DC 01/29/19 20:43 Clozapine (Clozaril) 100 mg QHS PO 02/07/19 21:00 02/10/19 20:03 DC 02/09/19 21:04 Clozapine (Clozaril) 100 mg QHS PO 02/10/19 21:00 02/18/19 15:15 DC 02/17/19 20:44 Clozapine (Clozaril) 125 mg QHS PO 02/18/19 21:00 UNV Clozapine (Clozaril) 150 mg QHS PO 01/30/19 21:00 02/07/19 08:56 DC 02/06/19 21:39 Clozapine (Clozaril) 200 mg QHS PO 02/18/19 21:00 02/24/19 07:44 DC 02/23/19 20:23 Clozapine (Clozaril) 275 mg QHS PO 02/21/19 21:00 UNV Clozapine (Clozaril) 300 mg QHS PO 02/24/19 21:00 03/04/19 21:00 Lorazepam (Ativan) 1 mg Q4HP PRN PO ANXIETY/AGITATION 02/03/19 11:00 02/17/19 10:30 DC 02/04/19 08:56 Lorazepam (Ativan) 1 mg Q6HP PRN PO ANXIETY 01/25/19 16:45 02/01/19 16:44 DC 01/26/19 22:02 Magnesium Hydroxide (Milk Of Magnesia) 30 ml DAILYPRN PRN PO CONSTIPATION 01/22/19 14:15 Miscellaneous (Unresolved Clarification Entry) SEE LABEL COMMENTS DAILY XX 02/25/19 09:00 02/25/19 13:32 DC Miscellaneous (Unresolved Clarification Entry) SEE LABEL COMMENTS DAILY XX 02/17/19 09:00 02/21/19 10:32 DC Miscellaneous (Unresolved Clarification Entry) SEE LABEL COMMENTS DAILY XX 02/10/19 09:00 02/10/19 17:42 DC Trazodone HCl (Desyrel) 50 mg QHSP PRN PO INSOMNIA 01/22/19 14:15 01/26/19 22:02 Allergies Coded Allergies: No Known Allergies (Unverified , 01/15/19) TINA MINAYA DO Mar 05, 2019 07:25
[2019-03-05] MEDS: cloZAPine 100 MG TAB (S0136) PO SCH ×2 (08:58→20:26)
[2019-03-05] MEDS: cloZAPine 25 MG TAB (S0136) PO SCH (08:58)
[2019-03-05 15:50] VITALS: BP 140/68
[2019-03-05] MEDS: ARIPiprazole 10 MG TAB PO SCH (20:26)
[2019-03-06 06:25] VITALS: BP 123/69
--- NOTE | 2019-03-06 07:54 | MHDSPDOC ---
[facility] Discharge Summary Discharge Summary DATE OF ADMISSION: Jan 22, 2019 at 14:50 DATE OF DISCHARGE: 03/06/19 Discharge Mike Singletary MRN: N/A Date of : N/A Date of Service: 03/06/2019 Diagnoses Schizophrenia. Alcohol use disorder, unspecified. Psychogenic polydipsia. History of Present Illness 33-year-old man with a history of schizophrenia with severe noncompliance resulting in a new psychotic episode. He has significant polydipsia and has required medical treatment on this presentation due to seizures. Consultants Involved Hospitalist/PCP screening Treatment and Progress On The Unit The patient was admitted to the inpatient mental health unit initially on a trial of antipsychotics that was ineffective for his schizophrenia. He was tapered off those medications and subsequently placed on clozapine 25 mg nightly and Abilify 5 mg nightly he was increased subsequently 300 mg nightly and 150 mg daily with Abilify at 20 mg nightly on some positive effects on his behavior. The patient initially had difficulty with psychogenic polydipsia so bad that he had seizures. He improved and subsequently did not require observation in order to assure that he was not getting water poisoning. However, he did have significant problems with his ability to socialize and 10 to his ADLs, requiring significant prompting from staff. Even after several weeks of prompting he was unable to fully recover. He was in triage for long-term care due to his inability to function even after several weeks of prompting. Discharge Assessment 33-year-old man with a history of schizophrenia who presents needing clozapine and Abilify, however, he needs long-term care in order to fully recovered Mental Status Examination General: Well dressed with good hygiene General: Fair hygiene Speech: Sparse Thought processes: Circumstantial MSK: Severe restlessness, pacing up and down the hallway Thought content: Paranoid Abstract reasoning, and computation: Impaired Description of associations: Impaired Description of abnormal or psychotic thoughts: Denies any suicidal or homicidal ideation Judgment: Impaired Insight: Impaired Orientation: Alert and orientated 3 Cognition: Grossly normal Recent and remote memory: Intact Attention span and concentration: Intact Fund of knowledge: Adequate Mood: "Great" Affect: Flat with little reactivity Follow Up The social work team worked during the predischarge meeting in order to evaluate for further issues of lethality address them fully before discharge. They worked on safety planning with the patient's family members in order to ensure that the patient will have a safe and effective transfer. Time Spent The amount of time spent in the coordination of care for this patient was approximately 40 minutes. Vital Signs/I&Os Vital Signs Date Time Temp Pulse Resp B/P (MAP) Pulse Ox O2 Delivery O2 Flow Rate FiO2 03/06/19 06:25 98.5 87 12 123/69 (87) Room Air Medications No Active Prescriptions or Reported Meds Allergies Coded Allergies: No Known Allergies (Unverified , 01/15/19) TINA MINAYA DO Mar 06, 2019 07:54
[2019-03-06] MEDS: cloZAPine 100 MG TAB (S0136) PO SCH (08:08)
[2019-03-06] MEDS: cloZAPine 25 MG TAB (S0136) PO SCH (08:08)
[2019-03-06] MEDS ORDERED: LORazepam 0.5 MG TAB PO ONE ×2 (10:00→16:00)
[2019-03-06 12:11] VITALS: BP 144/81
== END 2019-03-06 12:50 | DRG 750 ==
LOC: M PSY 14:50
PROVIDERS: ADMIT Psychiatry & Neurology Addiction Medicine; ATTEND Psychiatry & Neurology Addiction Medicine
DX: F20.9 Schizophrenia, unspecified (principal); F10.10 Alcohol abuse, uncomplicated; R63.1 Polydipsia; Z91.19 Patient's noncompliance with other medical treatment and regimen

== ENCOUNTER → 2020-12-30 | Outpatient (CLI) | payer OTHER ==
[2020-12-30 16:15] LABS: BASO % 0.3 % (0.0-1.0); EOS # 0.4 10^3/uL (0.0-0.5); EOS % 3.8 % (0.0-3.0); HEMATOCRIT 42.2 % (42.0-52.0); HEMOGLOBIN 13.5 g/dl (13.5-17.5); LYMPH # 1.3 10^3/uL (1.5-5.0); LYMPH % 13.5 % (24.0-44.0); MEAN CORPUSCULAR VOLUME 90.6 fl (80.0-96.0); MONO # 0.7 10^3/uL (0.0-0.8); MONO % 7.7 % (2.0-8.0); NEUTROPHILS % 74.5 % (36.0-66.0); PLATELET COUNT, AUTOMATED 194 10^3/uL (150-450); RED BLOOD COUNT 4.66 10^6/uL (4.30-6.10); WHITE BLOOD COUNT 9.5 10^3/uL (4.0-10.0)
[2020-12-30 16:33] LABS: ALBUMIN 3.6 GM/DL (3.2-5.2); ALT/SGPT 46 U/L (12-78); BILIRUBIN,TOTAL 0.4 MG/DL (0.2-1.0); BLOOD UREA NITROGEN 23 MG/DL (7-18); CALCIUM LEVEL 8.7 MG/DL (8.5-10.1); CARBON DIOXIDE LEVEL 30 MEQ/L (21-32); CHLORIDE LEVEL 107 MEQ/L (98-107); CREATININE FOR GFR 1.01 MG/DL (0.70-1.30); GLOMERULAR FILTRATION RATE > 60.0 (>60); GLUCOSE, FASTING 96 MG/DL (70-100); SODIUM LEVEL 141 MEQ/L (136-145); TOTAL PROTEIN 7.1 GM/DL (6.4-8.2)
== END ==
LOC: M WUC 14:37
PROVIDERS: ATTEND Internal Medicine Gastroenterology
DX: Z76.89 Persons encountering health services in other specified circumstances (principal)

== ENCOUNTER → 2023-01-19 | Outpatient (CLI) | payer MEDICAID ==
[~2023-01-19] MED LIST changes: -HALO5TA PO; +HALO5TAB33 PO
[2023-01-19 12:36] LABS: BASO % 0.7 % (0.0-1.0); EOS # 0.5 10^3/uL (0.0-0.5); EOS % 8.3 % (0.0-3.0); HEMOGLOBIN 13.6 g/dl (13.5-17.5); LYMPH # 1.7 10^3/uL (1.5-5.0); LYMPH % 30.2 % (24.0-44.0); MEAN CORPUSCULAR HEMOGLOBIN 28.8 pg (27.0-33.0); MEAN CORPUSCULAR HGB CONC 32.4 g/dl (32.0-36.5); MONO # 0.6 10^3/uL (0.0-0.8); MONO % 10.6 % (2.0-8.0); NEUTROPHILS # 2.9 10^3/uL (1.5-8.5); PLATELET COUNT, AUTOMATED 267 10^3/uL (150-450); RED BLOOD COUNT 4.72 10^6/uL (4.30-6.10); WHITE BLOOD COUNT 5.8 10^3/uL (4.0-10.0)
[2023-01-19 13:01] LABS: ALBUMIN 3.8 G/DL (3.2-5.2); ALKALINE PHOSPHATASE 86 U/L (46-116); ALT/SGPT 19 U/L (7.0-40); AST/SGOT 11 U/L (<34); BILIRUBIN,TOTAL 0.5 MG/DL (0.3-1.2); BLOOD UREA NITROGEN 16 MG/DL (9-23); CALCIUM LEVEL 8.7 MG/DL (8.5-10.1); CARBON DIOXIDE LEVEL 26 MMOL/L (20-31); CHLORIDE LEVEL 106 MMOL/L (98-107); CREATININE FOR GFR 1.02 MG/DL (0.70-1.30); FERRITIN 57.2 NG/ML (10.5-307.3); GLOMERULAR FILTRATION RATE > 60.0 (>60); GLUCOSE, FASTING 95 MG/DL (60-100); POTASSIUM SERUM 4.8 MMOL/L (3.5-5.1); SODIUM LEVEL 140 MMOL/L (136-145); THYROID STIMULATING HORMONE 3.229 uIU/ML (0.55-4.78); TOTAL PROTEIN 6.9 G/DL (5.7-8.2)
[2023-01-19 13:02] LABS: PROLACTIN 7.32 NG/ML (2.1-17.7)
[2023-01-19 13:03] LABS: FREE T4 1.06 NG/DL (0.89-1.76)
[2023-01-19 14:19] LABS: HEMOGLOBIN A1c 5.4 % (4.0-6.0)
[2023-01-23 03:07] LABS: INSULIN LEVEL 6.1 uIU/mL (2.6-24.9); TESTOSTERONE FREE (DIRECT) 9.1 pg/mL (8.7-25.1)
== END ==
LOC: M PLALAB 07:52
PROVIDERS: ATTEND Family Medicine
DX: D72.819 Decreased white blood cell count, unspecified (principal); E78.5 Hyperlipidemia, unspecified; E22.1 Hyperprolactinemia; E29.1 Testicular hypofunction; R73.01 Impaired fasting glucose

== ENCOUNTER → 2023-07-19 | Outpatient (CLI) | payer MEDICAID, OTHER ==
[2023-07-19 15:20] LABS: BASO # 0.1 10^3/uL (0.0-0.2); BASO % 0.7 % (0.0-1.0); EOS # 0.5 10^3/uL (0.0-0.5); EOS % 6.5 % (0.0-3.0); HEMOGLOBIN 15.6 g/dl (13.5-17.5); LYMPH % 27.6 % (24.0-44.0); MEAN CORPUSCULAR HEMOGLOBIN 28.9 pg (27.0-33.0); MEAN CORPUSCULAR HGB CONC 33.2 g/dl (32.0-36.5); MEAN CORPUSCULAR VOLUME 87.2 fl (80.0-96.0); MONO # 0.6 10^3/uL (0.0-0.8); MONO % 7.9 % (2.0-8.0); NEUTROPHILS # 4.1 10^3/uL (1.5-8.5); PLATELET COUNT, AUTOMATED 288 10^3/uL (150-450); RED BLOOD COUNT 5.39 10^6/uL (4.30-6.10); WHITE BLOOD COUNT 7.2 10^3/uL (4.0-10.0)
[2023-07-19 15:24] LABS: ALBUMIN 4.2 G/DL (3.2-5.2); ALKALINE PHOSPHATASE 94 U/L (46-116); ALT/SGPT 28 U/L (7.0-40); AST/SGOT 15 U/L (<34); BILIRUBIN,TOTAL 0.9 MG/DL (0.3-1.2); BLOOD UREA NITROGEN 14 MG/DL (9-23); CALCIUM LEVEL 9.5 MG/DL (8.5-10.1); CARBON DIOXIDE LEVEL 27 MMOL/L (20-31); CHLORIDE LEVEL 102 MMOL/L (98-107); CHOLESTEROL LEVEL 228 MG/DL (<200); CHOLESTEROL RISK RATIO 7.23 (<5); CREATININE FOR GFR 1.07 MG/DL (0.70-1.30); GLOMERULAR FILTRATION RATE > 60.0 (>60); GLUCOSE, FASTING 95 MG/DL (60-100); HDL CHOLESTEROL 31.5 MG/DL (>40); LDL CHOLESTEROL 170.1 MG/DL (<100); NON-HDL-C 196.5 MG/DL; POTASSIUM SERUM 4.5 MMOL/L (3.5-5.1); SODIUM LEVEL 135 MMOL/L (136-145); TOTAL PROTEIN 7.6 G/DL (5.7-8.2); TRIGLYCERIDES LEVEL 132 MG/DL (<150)
[2023-07-19 15:28] LABS: FERRITIN 93.2 NG/ML (10.5-307.3); FREE T4 1.16 NG/DL (0.89-1.76); THYROID STIMULATING HORMONE 2.271 uIU/ML (0.55-4.78)
[2023-07-19 15:35] LABS: HEMOGLOBIN A1c 5.3 % (4.0-6.0)
== END ==
LOC: M PLALAB 09:39
PROVIDERS: ATTEND Family Medicine
DX: D72.819 Decreased white blood cell count, unspecified (principal); R73.01 Impaired fasting glucose; E78.5 Hyperlipidemia, unspecified; E22.1 Hyperprolactinemia; E29.1 Testicular hypofunction

== ENCOUNTER → 2024-12-26 | Outpatient (REF) | payer OTHER, MEDICAID ==
[2024-12-26 18:20] LABS: BASO # 0.1 10^3/uL (0.0-0.2); BASO % 0.6 % (0.0-1.0); EOS # 0.4 10^3/uL (0.0-0.5); EOS % 4.1 % (0.0-3.0); LYMPH # 1.9 10^3/uL (1.5-5.0); LYMPH % 22.3 % (24.0-44.0); MONO # 0.6 10^3/uL (0.0-0.8); MONO % 6.5 % (2.0-8.0); NEUTROPHILS # 5.7 10^3/uL (1.5-8.5); NEUTROPHILS % 66.3 % (36.0-66.0); PLATELET COUNT, AUTOMATED 308 10^3/uL (150-450)
[2024-12-26 18:34] LABS: ALT/SGPT 30 U/L (7.0-40); AST/SGOT 20 U/L (<34); CALCIUM LEVEL 9.1 MG/DL (8.5-10.1); CARBON DIOXIDE LEVEL 28 MMOL/L (20-31); CHLORIDE LEVEL 105 MMOL/L (98-107); CREATININE FOR GFR 1.01 MG/DL (0.70-1.30); GLOMERULAR FILTRATION RATE > 90.0 (>60); POTASSIUM SERUM 4.6 MMOL/L (3.5-5.1); SODIUM LEVEL 141 MMOL/L (136-145)
== END ==
LOC: M LABDRAWP 17:50
PROVIDERS: ATTEND Internal Medicine Gastroenterology
DX: Z76.89 Persons encountering health services in other specified circumstances (principal)

== ENCOUNTER → 2025-02-10 | Outpatient (CLI) | payer OTHER, MEDICAID ==
[2025-02-10 17:34] LABS: BASO # 0.0 10^3/uL (0.0-0.2); BASO % 0.7 % (0.0-1.0); EOS # 0.6 10^3/uL (0.0-0.5); EOS % 9.8 % (0.0-3.0); LYMPH # 2.1 10^3/uL (1.5-5.0); LYMPH % 37.1 % (24.0-44.0); MONO # 0.6 10^3/uL (0.0-0.8); MONO % 10.4 % (2.0-8.0); NEUTROPHILS # 2.4 10^3/uL (1.5-8.5); NEUTROPHILS % 41.8 % (36.0-66.0); PLATELET COUNT, AUTOMATED 262 10^3/uL (150-450)
== END ==
LOC: M PLALAB 14:45
PROVIDERS: ATTEND Psychiatry & Neurology Psychiatry
DX: Z79.899 Other long term (current) drug therapy (principal)